=== PATIENT | female | born 1950 | race American Indian/Alaskan Native ===

== ENCOUNTER 2017-02-17 11:57 | Observation (INO) | payer OTHER ==
[2016-11-07 19:01] VITALS: PULSE 73
[2017-02-17 12:24] VITALS: TEMP 97.5
--- NOTE | 2017-02-17 12:58 | ED PDOC ---
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 Pt states that last night she was taking a shower and was sitting on a bath chair when she leaned over to wash her self and fell. She called her grandson which helped her up. This morning her physical therapist came to see her and called her PMD which stated come to the emergency depart. She currently complaining of buttock pain and b/l shoulder pain due to the fall. She denies any headache, or neck pain. She denies loosing consciousness. Pt also states that she was admitted to the hospital ([facility]) last month for pneumonia and she just came back home from the long term. She denies any f/c, cough, visual changes , new focal deficits, shortness of breath, chest pain, abd pain, n/v/d. PMD: Dr Marcus (Jesús Pike) Past Medical History - Provider Review Nursing Documentation Reviewed: Yes - Infectious Disease Hx of Infectious Diseases: None - Reproductive Menopause: Yes - Cardiac Hx Hypertension: Yes Other/Comment: Internal defibrillator - Endocrine/Metabolic Hx Diabetes Mellitus Type 2: Yes - Psychiatric Hx Substance Use: No - Anesthesia Hx Anesthesia: No <Jesús Pike - Last Filed: 02/17/17 17:32> Family/Social History Family/Social History: Hypertension Smoking Status: Unknown If Ever Smoked Hx Alcohol Use: No Hx Substance Use: No <Jesús Pike - Last Filed: 02/17/17 17:32> Allergies/Home Meds <John Richard DO - Last Filed: 02/17/17 17:22> <Jesús Pike - Last Filed: 05/11/17 17:32> Allergies/Adverse Reactions: Allergies sulfamethoxazole [From Bactrim] Allergy (Verified 11/07/16 19:27) RASH trimethoprim [From Bactrim] Allergy (Verified 11/07/16 19:27) RASH Home Medications: Home Meds Medication Instructions Recorded Confirmed Aspirin [Ecotrin] 81 mg PO DAILY 12/09/15 11/07/16 Calcium Acetate [Phoslo] 3 tab PO AC 12/09/15 11/07/16 Cinacalcet [Sensipar] 30 mg PO DAILY 12/09/15 11/07/16 Emtricitabine [Emtriva] 200 mg PO BID 12/09/15 11/07/16 Metoprolol Succinate [Toprol Xl] 100 mg PO QAM 12/09/15 11/07/16 Raltegravir Potassium [Isentress] 400 mg PO Q12H 12/09/15 11/07/16 Rilpivirine HCl [Edurant] 25 mg PO DAILY 12/09/15 11/07/16 Tenofovir [Viread] 300 mg PO MON 12/09/15 11/07/16 Valsartan [Diovan] 80 mg PO DAILY 12/09/15 11/07/16 Arformoterol [Brovana] 1 gage IH BID 10/08/16 11/07/16 Atorvastatin [Lipitor] 10 mg PO DIN 10/08/16 11/07/16 Atovaquone [Mepron] 750 mg PO BID 10/08/16 11/07/16 Bacitracin OINT 1 applic TP BID 10/08/16 10/16/16 Budesonide [Pulmicort Flexhaler] 90 mcg IH BID 10/08/16 11/07/16 Promethazine DM [Phenergan DM Oral 5 ml PO Q6H PRN 10/08/16 11/07/16 Syrup] SITagliptin [Januvia] 25 mg PO DAILY 10/08/16 11/07/16 Zolpidem [Ambien] 5 mg PO HS PRN 10/08/16 11/07/16 metroNIDAZOLE [Flagyl] 500 mg PO TID 10/08/16 10/16/16 Mometasone [Asmanex Twisthaler] 200 puff INH ACD 10/16/16 11/07/16 Heparin [Heparin 1000 units/500 ml 1,000 units SQ DAILY 11/07/16 11/07/16 NS] Review of Systems - Review of Systems Constitutional: absent: Fatigue, Fevers Eyes: absent: Vision Changes ENT: absent: Hearing Changes Respiratory: absent: SOB, Cough Cardiovascular: absent: Chest Pain, Palpitations Gastrointestinal: absent: Abdominal Pain, Diarrhea, Nausea, Vomiting Genitourinary Female: absent: Dysuria, Frequency Musculoskeletal: Arthralgias, Other (buttock pain, b/l shoulder pain ) Skin: absent: Rash Neurological: absent: Headache, Dizziness, Focal Weakness Endocrine: absent: Diaphoresis Psychiatric: absent: Anxiety, Depression <Ramclarissaar,[facility] - Last Filed: 02/17/17 17:32> Physical Exam Temperature: Afebrile Blood Pressure: Normal Pulse: Tachycardic Respiratory Rate: Normal Appearance: Positive for: Well-Appearing, Non-Toxic, Comfortable Pain Distress: None Mental Status: Positive for: Alert and Oriented X 3 - Systems Exam Head: Present: Atraumatic, Normocephalic Pupils: Present: PERRL Extroacular Muscles: Present: EOMI Mouth: Present: Moist Mucous Membranes Neck: Present: Normal Range of Motion Respiratory/Chest: Present: Clear to Auscultation, Good Air Exchange. No: Respiratory Distress, Accessory Muscle Use Cardiovascular: Present: Regular Rate and Rhythm, Normal S1, S2. No: Murmurs Abdomen: Present: Normal Bowel Sounds. No: Tenderness, Distention, Peritoneal Signs Upper Extremity: Present: Normal Inspection, Capillary Refill < 2s, Other ( limited rom; R AV fistula ). No: Cyanosis, Edema, Normal ROM Lower Extremity: Present: Normal Inspection, Other (limited rom ). No: Edema, CALF TENDERNESS, Normal ROM Neurological: Present: GCS=15, CN II-XII Intact, Speech Normal, Other (mild R sided facial deficits) Skin: Present: Warm, Dry, Normal Color. No: Rashes Psychiatric: Present: Alert, Oriented x 3, Normal Insight, Normal Concentration <Raminfar,Jesús - Last Filed: 02/17/17 17:32> Vital Signs Temp Pulse Resp BP Pulse Ox 02/17/17 16:35 104 H 18 128/64 96 02/17/17 15:17 94 H 18 130/62 97 02/17/17 14:00 100 H 18 132/65 100 02/17/17 12:10 97.5 F L 109 H 20 134/63 100 Medical Decision Making <John Richard DO - Last Filed: 02/17/17 17:22> <Jesús Pike - Last Filed: 02/17/17 17:32> ED Course and Treatment: Patient Seen With Resident: In agreement with resident note. Patient was seen and evaluated with resident, came up with plan and treatment together. 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 Differential Diagnosis included but are not limited to: mechanical fall r/o fractures Plan: - CBC, CMP, cardiac iso, BNP - Head CT w/o contrast - B/L Shoulder xray - Hip and pelvis xray - Reassess and disposition Prior Visits: Notes and results from previous visits were reviewed: none Progress Notes: 02/17/17 14:[address] negative for intra cranial mass hemorrhage or any acute infarct. Moderate chronic microvascular white matter ischemic changes. Awaiting Shoulder and Hip imaging. 02/17/17 14:55 EKG: Ordered, reviewed, and independently interpreted the EKG. Rate : 100 BPM Rhythm : Afib with premature ventricular or abbarently conducted complexes Interpretation : LAD, nonspecific intraventricular block, abnormal QRS-T angle consider primary T wave abnormality; abnormal EKG Comparison : No previous EKG for comparison. 02/17/17 16:[address] Carnes: B/L shoulder Xray are negative, and Hip / Pelvis xray are negative. Pt very hard access for IV and blood. Awaiting lab results. (Jesús Pike) - Lab Interpretations Lab Results: 02/17/17 16:40 02/17/17 16:40 Lab Results 02/17/17 16:40: Sodium 141, Potassium 3.4 L, Chloride 97 L, Carbon Dioxide 28, Anion Gap 19, BUN 18, Creatinine 5.9 H, Est GFR ( Amer) 9, Est GFR (Non- Af Amer) 7, Random Glucose 56 L, Calcium 7.8 L, Total Bilirubin 1.2, AST 25, ALT 14, Alkaline Phosphatase 133, Lactate Dehydrogenase 486, Total Creatine Kinase 38, Troponin I 0.05 D, NT-Pro-B Natriuret Pep 57961 H, Total Protein 9.8 H, Albumin 3.8, Globulin 6.0, Albumin/Globulin Ratio 0.6 L 02/17/17 16:40: WBC 3.8 L D, RBC 4.05, Hgb 13.3, Hct 41.6, MCV 102.7, MCH 32.8, MCHC 32.0, RDW 20.4 H, Plt Count 184, MPV 10.5, Gran % 53.6, Lymph % (Auto) 30.2 , Page % (Auto) 12.7 H, Eos % (Auto) 2.4, Baso % (Auto) 1.1, Gran # 2.02, Lymph # 1.1 L, Page # 0.5, Eos # 0.1, Baso # 0.04 - RAD Interpretation Radiology Orders: 02/17/17 12:47 HEAD W/O CONTRAST [CT] Stat HIP MIN 5V W/ PELVIS BREA [RAD] Stat 02/17/17 12:58 SHOULDER LEFT [RAD] Stat SHOULDER RIGHT [RAD] Stat ED OBSERVATION Time of observation admission: 14:00 <John Richard DO - Last Filed: 02/17/17 17:22> Discharge: Yes <Jesús Pike - Last Filed: 02/17/17 17:32> - Observation admission statement Patient is being placed in observation because:: medical management (John Richard DO) - PA / [employer] / Resident Statement SILVIANO has reviewed & agrees with the documentation as recorded. SILVIANO has examined the patient and agrees with the treatment plan. <Jesús Pike - Last Filed: 02/17/17 17:32> Disposition/Present on Arrival <John Richard DO - Last Filed: 02/17/17 17:22> - Present on Arrival Any Indicators Present on Arrival: No History of DVT/PE: No History of Uncontrolled Diabetes: No Urinary Catheter: No History of Decub. Ulcer: No History Surgical Site Infection Following: None - Disposition Have Diagnosis and Disposition been Completed?: Yes Disposition Time: 17:00 Patient Plan: Discharge <Jesús Pike - Last Filed: 02/17/17 17:32> - Disposition Diagnosis: Accident due to mechanical fall without injury Condition: IMPROVED Additional Instructions: Ann Glez, thank you for letting us take care of you today. Your provider was Dr Richard. You were treated for mechanical fall. The emergency medical care you received today was directed at your acute symptoms. If you were prescribed any medication, please fill it and take as directed. It may take several days for your symptoms to resolve. Return to the Emergency Department if your symptoms worsen, do not improve, or if you have any other problems. Please contact your doctor or call one of the physicians/clinics you have been referred to that are listed on the Patient Visit Information form that is included in your discharge packet. Bring any paperwork you were given at discharge with you along with any medications you are taking to your follow up visit. Our treatment cannot replace ongoing medical care by a primary care provider (PCP) outside of the emergency department. Thank you for allowing the [facility] team to be part of your care today. Referrals: Yossi Marcus, DO [Primary Care Provider] - Follow up with primary
--- NOTE | 2017-02-17 14:04 | CT ---
PROCEDURE: CT HEAD WITHOUT CONTRAST. HISTORY: r/o cva COMPARISON: None available. TECHNIQUE: Axial computed tomography images were obtained through the head/brain without intravenous contrast. Radiation dose: Total exam DLP = 677.45 mGy-cm. This CT exam was performed using one or more of the following dose reduction techniques: Automated exposure control, adjustment of the mA and/or kV according to patient size, and/or use of iterative reconstruction technique. FINDINGS: HEMORRHAGE: No intracranial hemorrhage. BRAIN: Left frontal encephalomalacia consistent with prior infarct. High right frontal deep and subcortical white matter low attenuation consistent with microvascular ischemic change. Moderate periventricular microvascular white matter ischemic change. No evidence of acute infarct. VENTRICLES: Unremarkable. No hydrocephalus. CALVARIUM: Unremarkable. PARANASAL SINUSES: Minimal chronic ethmoid sinusitis. MASTOID AIR CELLS: Unremarkable as visualized. No inflammatory changes. OTHER FINDINGS: None. IMPRESSION: No intracranial mass, hemorrhage or evidence of acute infarct. Probable old left frontal infarct. Moderate chronic microvascular white matter ischemic change.
[2017-02-17 14:45] VITALS: RESP 18
[2017-02-17 15:20] VITALS: BMI 27.3
[2017-02-17 16:36] VITALS: O2SAT 96
[2017-02-17 16:45] LABS: ADD MANUAL DIFF? NO
[2017-02-17 16:51] LABS: BASO # 0.04 K/mm3 (0.0-2.0); BASO % 1.1 % (0.0-3.0); EOS # 0.1 (0.0-0.7); EOS % 2.4 % (1.5-5.0); GRAN # 2.02 (1.4-6.5); GRAN % 53.6 % (50.0-68.0); HEMATOCRIT 41.6 % (36.0-48.0); LYMPH # 1.1 (1.2-3.4); LYMPH % 30.2 % (22.0-35.0); MEAN CELL VOLUME 102.7 fL (80.0-105.0); MEAN CORPUSCULAR HEMOGLOBIN 32.8 pg (25.0-35.0); MEAN PLATELET VOLUME 10.5 fl (7.0-11.0); MONO # 0.5 (0.1-0.6); MONO % 12.7 % (1.0-6.0); PLATELET COUNT 184 10^3/uL (120.0-450.0); RED CELL DISTRIBUTION WIDTH 20.4 % (11.5-14.5); WHITE BLOOD COUNT 3.8 10^3/ul (4.5-11.0)
[2017-02-17 17:02] LABS: ALB/GLOB RATIO 0.6 (1.1-1.8); BILIRUBIN,TOTAL 1.2 mg/dL (0.2-1.3); CALCIUM 7.8 mg/dL (8.4-10.5); POTASSIUM 3.4 mmol/L (3.6-5.0); TOTAL PROTEIN 9.8 g/dL (5.8-8.3)
[2017-02-17 17:14] LABS: TROPONIN I 0.05 ng/mL
[2017-02-17 19:05] VITALS: BP 126/68; PULSE 94
--- NOTE | 2017-02-21 07:57 | RAD ---
PROCEDURE: Radiographs of the pelvis and bilateral hips HISTORY: s/p fall COMPARISON: None. FINDINGS: BONES: Pelvis: Unremarkable. Right hip:Unremarkable. Left hip:Unremarkable. JOINTS: Right hip: Unremarkable. Left hip: Unremarkable. Sacroiliac Joints: Unremarkable. Pubic symphysis: Unremarkable. SOFT TISSUES: Vascular calcifications. Pelvic calcification probably within a fibroid OTHER FINDINGS: None. IMPRESSION: Unremarkable radiographs of the hips and pelvis.
--- NOTE | 2017-02-21 07:59 | RAD ---
PROCEDURE: Radiographs of the Left Shoulder HISTORY: fall COMPARISON: No prior. FINDINGS: BONES: Normal. No fracture. JOINTS: Normal. Glenohumeral and acromioclavicular joints preserved. No osteoarthritis. SOFT TISSUES: Normal. OTHER FINDINGS: None. IMPRESSION: Normal radiographs of the left shoulder.
--- NOTE | 2017-02-21 08:05 | RAD ---
PROCEDURE: Radiographs of the Right Shoulder HISTORY: fall COMPARISON: No prior. FINDINGS: BONES: Normal. No fracture. JOINTS: Normal. Glenohumeral and acromioclavicular joints preserved. No osteoarthritis. SOFT TISSUES: Normal. OTHER FINDINGS: None. IMPRESSION: Normal radiographs of the right shoulder.
== END 2017-02-17 17:32 | disposition home or self-care (01) ==
LOC: EDUNIT# → ED 11:57 → EROBSV 14:00
PROVIDERS: ADMIT Emergency Medicine; ATTEND Emergency Medicine
DX: Z03.89 Encounter for observation for other suspected diseases and conditions ruled out (principal); W07.XXXA Fall from chair, initial encounter; Y93.E1 Activity, personal bathing and showering; Y92.002 Bathroom of unspecified non-institutional (private) residence as the place of occurrence of the external cause; I12.0 Hypertensive chronic kidney disease with stage 5 chronic kidney disease or end stage renal disease; N18.6 End stage renal disease; Z99.2 Dependence on renal dialysis; Z21 Asymptomatic human immunodeficiency virus [HIV] infection status
CPT/HCPCS: 70450; 73030; 73523; 80053; 82550; 83615; 83880; 84484; 85025; 99285; G0378

== ENCOUNTER 2017-02-21 01:16 | Inpatient (IN) | payer OTHER ==
[2017-02-21 01:17] VITALS: PULSE 73
[2017-02-21 01:24] VITALS: BMI 27.6
--- NOTE | 2017-02-21 01:38 | ED PDOC ---
Arrival/HPI - General Chief Complaint: Weakness/Neurological Deficit Time Seen by Provider: 02/21/17 01:21 Historian: Patient - History of Present Illness Narrative History of Present Illness (Text): 02/21/17 01:38 Newton Juarez is a 66 year old female, whose past medical history includes HIV, CHF, atrial fibrillation, CAD with stents, anemia, COPD, pacemaker, CVA, and ESRD (hemodialysis on Tuesday/Tuesday/Tuesday), who presents to the Emergency department complaining of generalized weakness s/p fall. Patient states she fell 4 days on to her right side at home and is now experiencing pain on her right side and generalized weakness. Patient denies any nausea, vomiting, diarrhea, urinary symptoms, headache, dizziness, or any other complaints. Time/Duration: Other (4 days) Symptom Onset: Gradual Symptom Course: Unchanged Activities at Onset: Light Context: Home Past Medical History - Provider Review Nursing Documentation Reviewed: Yes - Infectious Disease Hx of Infectious Diseases: None - Tetanus Immunization Tetanus Immunization: Unknown - Cardiac Hx Hypertension: Yes Other/Comment: Internal defibrillator 2002 - Pulmonary Hx Respiratory Disorders: Yes Hx Asthma: Yes Hx Chronic Obstructive Pulmonary Disease (COPD): Yes Hx Pneumonia: Yes - Neurological Hx Neurological Disorder: Yes HX Cerebrovascular Accident: Yes Hx Dizziness: Yes Hx Paralysis: No Hx Transient Ischemic Attacks (TIA): Yes Other/Comment: speech impediment and no feeling to bottom of left foot post cva - HEENT Hx HEENT Disorder: Yes (glasses) - Renal Hx Dialysis: Yes (m/w/f right arm access) Date of Last Dialysis Treatment: 02/18/17 - Endocrine/Metabolic Hx Diabetes Mellitus Type 2: Yes - Hematological/Oncological Hx Blood Disorders: Yes Hx Blood Transfusions: No Hx Blood Transfusion Reaction: No - Integumentary Hx Dermatological Disorder: No - Musculoskeletal/Rheumatological Hx Musculoskeletal Disorders: Yes Hx Falls: Yes (past) Hx Unsteady Gait: Yes Other/Comment: unsteady gait use quad cane - Gastrointestinal Hx Gastrointestinal Disorders: No - Genitourinary/Gynecological Hx Genitourinary Disorders: Yes Hx Reproductive Disorders: No - Psychiatric Hx Psychophysiologic Disorder: No Hx Depression: No Hx Emotional Abuse: No Hx Physical Abuse: No Hx Substance Use: No - Surgical History Hx Cardiac Catheterization: Yes Hx Coronary Stent: Yes (x1 2002) Hx Open Heart Surgery: Yes (defibrillator 2002) Hx Tubal Ligation: Yes Other/Comment: defibrilator/pacemaker --tubal ligation --cardiac cath with stents-- cystoscopy,urethral dilatation, bilateral retrograde pyelogram, fistulagrams, abd wall hematoma exc abd wall mass 06/2014, r av fistula upper arm (ALL CONFIRMED AND FROM PAST TRIAGE) - Anesthesia Hx Anesthesia: No - Suicidal Assessment Feels Threatened In Home Enviroment: No Family/Social History - Physician Review Nursing Documentation Reviewed: Yes Family/Social History: No Known Family HX Smoking Status: Unknown If Ever Smoked Hx Alcohol Use: No Hx Substance Use: No Hx Substance Use Treatment: No Allergies/Home Meds Allergies/Adverse Reactions: Allergies sulfamethoxazole [From Bactrim] Allergy (Verified 02/21/17 01:28) RASH trimethoprim [From Bactrim] Allergy (Verified 02/21/17 01:28) RASH Home Medications: Home Meds Medication Instructions Recorded Confirmed Atovaquone [Mepron] 5 ml PO BID 02/22/17 02/22/17 Dolutegravir Sodium [Tivicay] 50 mg PO BID 02/22/17 02/22/17 Emtricitabine [Emtriva] 200 mg PO MWF 02/22/17 02/22/17 Loperamide [Imodium] 2 mg PO BID PRN 02/22/17 02/22/17 Ondansetron HCl [Zofran] 4 mg PO Q4 PRN 02/22/17 02/22/17 Rilpivirine HCl [Edurant] 25 mg PO BRK 02/22/17 02/22/17 metroNIDAZOLE [Flagyl] 500 mg PO TID 02/22/17 02/22/17 Review of Systems - Physician Review All systems were reviewed & negative as marked: Yes - Review of Systems Constitutional: Other Eyes: Normal ENT: Normal Respiratory: Normal. absent: SOB, Cough Cardiovascular: Normal. absent: Chest Pain Gastrointestinal: Normal. absent: Abdominal Pain, Diarrhea, Nausea, Vomiting Genitourinary Female: Normal Skin: Normal. absent: Rash Neurological: Normal. absent: Headache, Dizziness Endocrine: Normal Hemo/Lymphatic: Normal Psychiatric: Normal Physical Exam Vital Signs Reviewed: Yes Vital Signs Temp Pulse Resp BP Pulse Ox 02/21/17 05:08 98.2 F 91 H 18 120/73 95 02/21/17 02:53 90 18 123/78 98 02/21/17 01:58 108 H 18 102/68 97 Temperature: Afebrile Blood Pressure: Normal Pulse: Regular Respiratory Rate: Normal Appearance: Positive for: Non-Toxic, Comfortable Pain Distress: None Mental Status: Positive for: Alert and Oriented X 3 - Systems Exam Head: Present: Atraumatic, Normocephalic Pupils: Present: PERRL Extroacular Muscles: Present: EOMI Conjunctiva: Present: Normal Mouth: Present: Moist Mucous Membranes Neck: Present: Normal Range of Motion Respiratory/Chest: Present: Clear to Auscultation, Good Air Exchange. No: Respiratory Distress, Accessory Muscle Use Cardiovascular: Present: Regular Rate and Rhythm, Normal S1, S2. No: Murmurs Abdomen: Present: Normal Bowel Sounds. No: Tenderness, Distention, Peritoneal Signs Back: Present: Normal Inspection Upper Extremity: Present: Normal Inspection. No: Cyanosis, Edema Lower Extremity: Present: Normal Inspection. No: Edema Neurological: Present: GCS=15, CN II-XII Intact, Speech Normal Skin: Present: Warm, Dry, Normal Color. No: Rashes Psychiatric: Present: Alert, Oriented x 3, Normal Insight, Normal Concentration Medical Decision Making ED Course and Treatment: 02/21/17 01:38 Impression: 66 year old female complaining of right-sided body pain and generalized weakness s/p fall at home. Plan: -- CT Head w/o contrast -- CT Chest, Abdomen, and Pelvis w/o contrast -- EKG -- Labs, troponin -- Urinalysis -- Reassess and disposition Prior Visits: Notes and results from previous visits were reviewed. Progress Notes: 02/21/17 02:22 Reviewed radiology, CT Head shows: No acute findings. CT Chest shows: 1. Small left pleural effusion. 2. Cardiomegaly CT Abdomen and Pelvis shows: 1. There is thickening of the wall of the transverse colon. 2. There is a small amount of simple ascites. 02/21/17 03:[address] Vidales, covering for Dr. Marcus, who is aware and agrees with plan. Pt will go to [facility] observation for weakness and hypoglycemia. 02/21/17 03:25 Reviewed EKG, a fib at [address] bpm. LAD. Non-specific ST/T wave changes. - Lab Interpretations Microbiology Results: Microbiology Results 02/21/17 09:05 Blood-Venous Blood Culture - Preliminary NO GROWTH AFTER 24 HOURS Lab Results: 02/21/17 02:25 02/21/17 02:25 Lab Results 02/21/17 09:28: Procalcitonin 0.83 H 02/21/17 09:00: Troponin I 0.08 02/21/17 07:14: POC Glucose (mg/dL) 46 L 02/21/17 03:05: POC Glucose (mg/dL) 99 02/21/17 02:25: PT 15.1 H, INR 1.40 H, APTT 28.7 02/21/17 02:25: Sodium 141, Potassium 3.7, Chloride 97, Carbon Dioxide 28, Anion Gap 20, BUN 21, Creatinine 7.7 H, Est GFR ( Amer) 6, Est GFR (Non- Af Amer) 5, Random Glucose 61 L, Calcium 7.1 L, Total Bilirubin 1.0, AST 32, ALT 26, Alkaline Phosphatase 123, Troponin I 0.08 D, Total Protein 8.9 H, Albumin 3.4, Globulin 5.5, Albumin/Globulin Ratio 0.6 L 02/21/17 02:25: WBC 3.2 L, RBC 3.93, Hgb 12.8, Hct 40.8, MCV 103.8, MCH 32.6, MCHC 31.4, RDW 21.5 H, Plt Count 165, MPV 10.9, Gran % 58.6, Lymph % (Auto) 28.5 , [place] % (Auto) 9.1 H, Eos % (Auto) 2.5, Baso % (Auto) 1.3, Gran # 1.87, Lymph # 0.9 L, [place] # 0.3, Eos # 0.1, Baso # 0.04 02/21/17 02:15: POC Glucose (mg/dL) 68 I have reviewed the lab results: Yes - RAD Interpretation Narrative RAD Interpretations (Text): CT Head shows: Brain: Generalized volume loss. There is nonspecific periventricular and deep white matter disease. Left frontal encephalomalacia. No hemorrhage. No edema. Ventricles: No acute findings. No ventriculomegaly. Bones/joints: No acute findings. No acute fracture. Soft tissues: No acute findings. Sinuses: No acute findings. No acute sinusitis. Mastoid air cells: No acute findings. No mastoid effusion. IMPRESSION: No acute findings. CT Chest shows: Lungs: No acute findings. No mass. No consolidation. Pleural space: Small left pleural effusion. Heart: Cardiomegaly. Bones/joints: No acute findings. No acute fracture. No dislocation. Soft tissues: No acute findings. Vasculature: No acute findings. No thoracic aortic aneurysm. Lymph nodes: No acute findings. No enlarged lymph nodes. IMPRESSION: 1. Small left pleural effusion. 2. Cardiomegaly CT Abdomen and Pelvis shows: Lower thorax: No acute findings. ABDOMEN: Liver: No acute findings. Gallbladder and bile ducts: No acute findings. No calcified stones. No ductal dilation. Pancreas: No acute findings. No ductal dilation. Spleen: No acute findings. No splenomegaly. Adrenals: No acute findings. No mass. Kidneys and ureters: No acute findings. No obstructing stones. No hydronephrosis. Stomach and bowel: There is thickening of the wall of the transverse colon. Appendix: No findings to suggest acute appendicitis. PELVIS: Bladder: No acute findings. No stones. Reproductive: No acute findings. ABDOMEN and PELVIS: Intraperitoneal space: There is a small amount of simple ascites. Bones/joints: No acute fracture. No dislocation. Soft tissues: No acute findings. Vasculature: Calcified atherosclerosis. No abdominal aortic aneurysm. Lymph nodes: No acute findings. No enlarged lymph nodes. IMPRESSION: 1. There is thickening of the wall of the transverse colon. 2. There is a small amount of simple ascites. Radiology Orders: 02/21/17 01:39 HEAD W/O CONTRAST [CT] Stat 02/21/17 01:44 CHEST,ABDOMEN, PELVIS W/O CONT [CT] Stat Mechanical Lead: Radiologist - EKG Interpretation Interpreted by ED Physician: Yes Type: 12 lead EKG - Medication Orders Current Medication Orders: Acetaminophen (Tylenol 325mg Tab) 650 mg PO Q4H PRN PRN Reason: Pain, Mild (1-3) Last Admin: 02/22/17 14:07 Dose: 650 mg Atovaquone (Mepron) 750 mg PO BID [facility] Last Admin: 02/22/17 17:48 Dose: 750 mg Diltiazem HCl (Cardizem) 5 mg IVP ONCE PRN PRN Reason: sustained HR >130 Heparin Sodium (Porcine) (Heparin) 5,000 units SC Q8 [facility] PRN Reason: Protocol Last Admin: 02/23/17 06:47 Dose: Home Med (Home Med) 1 unit PO DAILY [facility] Home Med (Home Med) 1 unit PO BID [facility] Home Med (Home Med) 1 unit PO Q4D [facility] Meropenem 500 mg/ Sodium (Chloride) 100 mls @ 100 mls/hr IVPB Q12 [facility] PRN Reason: Protocol Stop: 02/28/17 15:07 Last Admin: 02/22/17 22:05 Dose: 100 mls/hr Insulin Human Regular (Humulin R Low) 0 units SC ACHS [facility] PRN Reason: Protocol Last Admin: 02/22/17 22:05 Dose: Not Given Non-Admin Reason: Blood Sugar Parameter Ondansetron HCl (Zofran Inj) 4 mg IVP Q6H PRN PRN Reason: Nausea/Vomiting Pantoprazole Sodium (Protonix Ec Tab) 40 mg PO ACB [facility] Vitamin B Complex/Vit C/Folic Acid (Nephro-Stone) 1 tab PO DAILY [facility] Last Admin: 02/22/17 08:59 Dose: 1 tab Discontinued Medications Aspirin (Ecotrin) 325 mg PO STAT STA Stop: 02/21/17 10:09 Last Admin: 02/21/17 10:17 Dose: 325 mg Aspirin (Aspirin) Confirm Administered Dose 325 mg .ROUTE .STK-MED ONE Stop: 02/21/17 11:05 Last Admin: 02/21/17 11:06 Dose: 325 mg Bivalirudin (Angiomax) Confirm Administered Dose 250 mg IV .STK-MED ONE Stop: 02/21/17 10:58 Last Admin: 02/21/17 13:43 Dose: Clopidogrel Bisulfate (Plavix) 600 mg PO STAT STA Stop: 02/21/17 10:18 Last Admin: 02/21/17 10:57 Dose: 600 mg Clopidogrel Bisulfate (Plavix) Confirm Administered Dose 600 mg .ROUTE .STK-MED ONE Stop: 02/21/17 11:05 Last Admin: 02/21/17 13:54 Dose: Dextrose (Dextrose 50% Inj) Confirm Administered Dose 50 ml .ROUTE .STK-MED ONE Stop: 02/21/17 02:18 Last Admin: 02/21/17 02:55 Dose: 50 ml Dextrose (Dextrose 50% Inj) 50 ml IVP STAT STA Stop: 02/21/17 07:25 Last Admin: 02/21/17 07:41 Dose: 50 ml Fentanyl (Fentanyl) Confirm Administered Dose 100 mcg .ROUTE .STK-MED ONE Stop: 02/21/17 10:59 Last Admin: 02/21/17 13:53 Dose: Vancomycin HCl (Vancomycin 1gm) 1 gm in 250 mls @ 167 mls/hr IVPB STAT STA PRN Reason: Protocol Stop: 02/21/17 11:00 Last Admin: 02/21/17 09:54 Dose: 167 mls/hr Comments: Medication will not scan Heparin Sodium (Porcine) (Heparin 1000 Units/500 Ml Ns) Confirm Administered Dose 1,500 mls @ ud IV .STK-MED ONE Stop: 02/21/17 10:59 Last Admin: 02/21/17 13:53 Dose: Dopamine HCl/Dextrose (Dopamine 400mg/250ml D5w) Confirm Administered Dose 400 mg in 250 mls @ ud IV .STK-MED ONE Stop: 02/21/17 12:07 Last Admin: 02/21/17 12:09 Dose: 400 mg Comments: 5mcg/kg/min started by Marjorie Sodium Chloride (Sodium Chloride 0.9%) 250 mls @ 999 mls/hr IV .Q16M STA Stop: 02/21/17 23:30 Last Admin: 02/21/17 23:42 Dose: 999 mls/hr Iodixanol (Visipaque 320 Mg/Ml 200 Ml) Confirm Administered Dose 200 ml IV .STK- MED ONE Stop: 02/21/17 10:59 Last Admin: 02/21/17 13:54 Dose: Lidocaine HCl (Lidocaine 2% 20ml Vial) Confirm Administered Dose 20 ml .ROUTE .STK-MED ONE Stop: 02/21/17 10:58 Last Admin: 02/21/17 13:53 Dose: Metoprolol Tartrate (Lopressor) 12.5 mg PO STAT STA Stop: 02/21/17 10:08 Last Admin: 02/21/17 10:17 Dose: 12.5 mg Midazolam HCl (Versed Inj) Confirm Administered Dose 2 mg .ROUTE .STK-MED ONE Stop: 02/21/17 10:58 Last Admin: 02/21/17 11:51 Dose: 2 mg Comments: 1mg iv given by dr. vazquez Morphine Sulfate (Morphine) 2 mg IVP STAT STA Stop: 02/21/17 23:19 Last Admin: 02/21/17 23:41 Dose: 2 mg Nitroglycerin (Nitrostat Sl Tab) 0.4 mg SL Q5M STA Stop: 02/21/17 06:03 Last Admin: 02/21/17 06:23 Dose: 0.4 mg Nitroglycerin (Nitrostat Sl Tab) 0.4 mg SL Q5M [facility] Stop: 02/21/17 10:11 Last Admin: 02/21/17 10:59 Dose: Nitroglycerin (Nitrostat Sl Tab) 0.3 mg SL STAT STA Stop: 02/21/17 21:22 Last Admin: 02/21/17 21:35 Dose: 0.3 mg Ondansetron HCl (Zofran Inj) Confirm Administered Dose 4 mg .ROUTE .STK-MED ONE Stop: 02/21/17 10:47 Last Admin: 02/21/17 10:50 Dose: 4 mg Comments: given by Sabina WEEKS Ondansetron HCl (Zofran Inj) Confirm Administered Dose 4 mg .ROUTE .STK-MED ONE Stop: 02/21/17 12:07 Last Admin: 02/21/17 12:11 Dose: 4 mg Comments: given for nausea Pantoprazole Sodium (Protonix Inj) 40 mg IVP DAILY [facility] Last Admin: 02/22/17 08:59 Dose: 40 mg Phenylephrine HCl (Phenylephrine Inj) Confirm Administered Dose 10 mg .ROUTE .STK-MED ONE Stop: 02/21/17 12:08 Last Admin: 02/21/17 12:10 Dose: 10 mg Comments: 100 mcg iv given by Guillermo Sultana RN - Nanetteibe Statement The provider has reviewed the documentation as recorded by the Razia Altamirano All medical record entries made by the Nanetteibfrancis were at my direction and personally dictated by me. I have reviewed the chart and agree that the record accurately reflects my personal performance of the history, physical exam, medical decision making, and the department course for this patient. I have also personally directed, reviewed, and agree with the discharge instructions and disposition. Disposition/Present on Arrival - Present on Arrival Any Indicators Present on Arrival: No History of DVT/PE: No History of Uncontrolled Diabetes: No Urinary Catheter: No History of Decub. Ulcer: No History Surgical Site Infection Following: None - Disposition Have Diagnosis and Disposition been Completed?: Yes Diagnosis: Generalized weakness Disposition: HOSPITALIZED Disposition Time: 03:20 Condition: FAIR
[2017-02-21] MEDS ORDERED: Dextrose 50% SYRINGE Inj (50 ml) ONE (02:17)
[2017-02-21 02:40] LABS: BASO # 0.04 K/mm3 (0.0-2.0); BASO % 1.3 % (0.0-3.0); EOS # 0.1 (0.0-0.7); EOS % 2.5 % (1.5-5.0); GRAN # 1.87 (1.4-6.5); GRAN % 58.6 % (50.0-68.0); HEMATOCRIT 40.8 % (36.0-48.0); LYMPH # 0.9 (1.2-3.4); LYMPH % 28.5 % (22.0-35.0); MEAN CELL VOLUME 103.8 fL (80.0-105.0); MEAN CORPUSCULAR HEMOGLOBIN 32.6 pg (25.0-35.0); MEAN CORPUSCULAR HGB CONC 31.4 g/dl (31.0-37.0); MEAN PLATELET VOLUME 10.9 fl (7.0-11.0); MONO # 0.3 (0.1-0.6); MONO % 9.1 % (1.0-6.0); PLATELET COUNT 165 10^3/uL (120.0-450.0); RED CELL DISTRIBUTION WIDTH 21.5 % (11.5-14.5); WHITE BLOOD COUNT 3.2 10^3/ul (4.5-11.0)
[2017-02-21 02:47] LABS: INR 1.4 (0.93-1.08); PARTIAL THROMBOPLASTIN TIME 28.7 Seconds (23.7-30.8)
[2017-02-21 02:53] LABS: ALB/GLOB RATIO 0.6 (1.1-1.8); CALCIUM 7.1 mg/dL (8.4-10.5); POTASSIUM 3.7 mmol/L (3.6-5.0); TOTAL PROTEIN 8.9 g/dL (5.8-8.3)
[2017-02-21 03:12] LABS: TROPONIN I 0.08 ng/mL
[2017-02-21 03:21] LABS: ADD MANUAL DIFF? NO
--- NOTE | 2017-02-21 06:20 | CP.PCM.PN ---
Subjective - Date & Time of Evaluation Date of Evaluation: 02/21/17 Time of Evaluation: 06:16 - Subjective Subjective: Patient was seen at bed side because she complained of chest pain.Pain has been present for past 15 minute, is right parasternal, 9/10 , sharp pain, not radiating but she also has pain in the back in the corresponding area,denies nausea, sweating, palpitation, sob, cough, head ache, dizziness. 66 year old woman was admitted with mid sternal chest pain. Has PMH of HTN,atrial fibrillation , CHF,CAD, ischemic CMP, multiple stent placement, COPD, AICD placementi, ESRD ,HIV +, multiple CVA right AV fistula, tubal ligation, cystoscopy with dilatation,ex smoker. Objective - Vital Signs/Intake and Output Vital Signs (last 24 hours): Temp Pulse Resp BP Pulse Ox 98.2 F 91 H 18 120/73 95 02/21/17 05:08 02/21/17 05:08 02/21/17 05:08 02/21/17 05:08 02/21/17 05:08 - Medications Medications: Current Medications Acetaminophen (Tylenol 325mg Tab) 650 mg PO Q4H PRN PRN Reason: Pain, Mild (1-3) - Labs Labs: PT 15.1 Seconds (9.9-11.8) H 02/21/17 02:25 INR 1.40 (0.93-1.08) H 02/21/17 02:25 APTT 28.7 Seconds (23.7-30.8) 02/21/17 02:25 - Constitutional Appears: Well, No Acute Distress - Head Exam Head Exam: ATRAUMATIC, NORMAL INSPECTION, NORMOCEPHALIC - Eye Exam Eye Exam: Normal appearance - ENT Exam ENT Exam: Normal External Ear Exam - Neck Exam Neck Exam: Normal Inspection - Respiratory Exam Respiratory Exam: NORMAL BREATHING PATTERN - Cardiovascular Exam Cardiovascular Exam: absent: JVD - GI/Abdominal Exam GI & Abdominal Exam: absent: Distended - Rectal Exam Rectal Exam: Deferred - Extremities Exam Extremities Exam: Normal Inspection - Back Exam Back Exam: NORMAL INSPECTION - Neurological Exam Neurological Exam: Alert, Oriented x3 - Psychiatric Exam Psychiatric exam: Normal Affect, Normal Mood - Skin Skin Exam: Normal Color Additional comments: AICD + Assessment and Plan - Assessment and Plan (Free Text) Assessment: A/P:Chest pain. Back pain. HTN. CAD. CHF. Ischemic cardiomyopathy. ESRD on HD. Oxygen. EKG . Troponin. Sublingual NTG 0.4 mg q 5 m x 3.------>Pain relieved with 3rd NTG.
[2017-02-21] MEDS ORDERED: Dextrose 50% SYRINGE Inj (50 ml) IVP STA (07:24)
--- NOTE | 2017-02-21 07:46 | CT ---
PROCEDURE: CT HEAD WITHOUT CONTRAST. HISTORY: weakness COMPARISON: Noncontrast head CT performed 02/17/17 TECHNIQUE: Axial computed tomography images were obtained through the head/brain without intravenous contrast. Radiation dose: Total exam DLP = 687.92 mGy-cm. This CT exam was performed using one or more of the following dose reduction techniques: Automated exposure control, adjustment of the mA and/or kV according to patient size, and/or use of iterative reconstruction technique. FINDINGS: HEMORRHAGE: No intracranial hemorrhage. BRAIN: Diffuse atrophy with prominence of the ventricles and sulci noted. No mass effect or edema. Left frontal encephalomalacia. Scattered periventricular and subcortical white matter hypodensities, which are nonspecific, but often seen with chronic microvascular ischemic disease. Please note that MRI with diffusion imaging is more sensitive in the detection of acute ischemic event. VENTRICLES: No hydrocephalus. CALVARIUM: Unremarkable. PARANASAL SINUSES: Unremarkable as visualized. No significant inflammatory changes. MASTOID AIR CELLS: Under aeration of the right mastoid air cells. The left mastoid air cells appear clear. OTHER FINDINGS: None. IMPRESSION: Left frontal encephalomalacia. Nonspecific white matter changes. Generalized volume loss. Preliminary impression was provided by virtual radiologic.
--- NOTE | 2017-02-21 09:16 | HP ---
I saw the patient in bed at [facility]. She is resting comfortably in bed. She is quite weak and lethargic. She is a 66-year-old female who comes in with a history of 4 days ago falling in the shower, experiencing pain on the right side where she hit the shower. She did not hit her head. No loss of consciousness. She has been very weak and lethargic and cannot walk anymore. PAST MEDICAL HISTORY: HIV, CHF, atrial fibrillation, coronary artery disease with stents, anemia, COPD, pacemaker, CVA, and end-stage renal disease with hemodialysis. She has a defibrillator, COPD, asthma, CVA, TIA, speech impediment, left foot numbness and weakness, diabetes, multiple falls, gait disturbance, uses a cane. I think she needs to go for physical therapy at this time. She has coronary stents, defibrillator, tubal ligation, cardiac stents, cystoscopy with ureteral dilatation, bilateral retrograde pyelogram, fistulograms, abdominal wall hematoma, abdominal mass, fistula upper left arm. FAMILY HISTORY: There is hypertension and diabetes in the family. SOCIAL HISTORY: No more smoking, alcohol, or drugs. ALLERGIES: SULFA AND Bactrim. MEDICATIONS: She is on numerous medications. I cannot get the list at this time. We have to work on that. REVIEW OF SYSTEMS: No acute vision changes or hearing changes, no head trauma. She is very weak. No sore throat. No chest pain, no shortness of breath, no coughing, no wheezes, no rales, no palpitations, no abdominal pain, nausea, vomiting, constipation, diarrhea. All extremities are weak, difficult to move them in bed. She has pains on her sides and the ribs from the fall, very nervous, a little anxious. PHYSICAL EXAMINATION: VITAL SIGNS: She has a 98.2 temp, 91 pulse, 18 respiratory rate, 120/78 blood pressure, 95% O2 sat on room air. HEENT: Head is atraumatic, normocephalic. Throat is moist. NECK: Supple. GENERAL: Alert and oriented x 3. EYES: Pupils are equally reactive to light. Extraocular muscles are intact. HEART: Regular rate. Normal S1, S2. LUNGS: Decreased breath sounds, but clear to auscultation. No wheezes, no rhonchi, no rales. ABDOMEN: Soft, nontender, positive bowel sounds. No guarding, no rebound, no CVA tenderness. EXTREMITIES: Have trace edema, but she is weak, difficult to move the legs. NEUROLOGIC: GCS is 15. Cranial nerves II-XII are grossly intact. She is alert and oriented x 3. Thyroid midline. No palpable lymphadenopathy. She had multiple CAT scans and tests. CT of the chest shows small left pleural effusion, cardiomyopathy. CT of the abdomen and pelvis shows thickening of the wall of the transverse colon, small amount of simple ascites. EKG was AFib at 85. LABORATORY DATA: Sodium 141, potassium 3.7, BUN 21. Creatinine is 7.7. GFR is 5. Sugar is 46 and 91. Calcium is 7.1. Total bili is 1. AST is 32. ALT is 26, alk phos 123. Troponin 0.08. I will get cardio involved. INR is 1.4. White count is 3.2, hemoglobin 12.8, hematocrit 40.8. Platelets are 165. I will get cardio, physical therapy, and renal. We will check her labs tomorrow. They put her in as an observation. I cannot foresee her going home if she cannot walk. She is probably going to need to be made into an inpatient. She just got her this morning. I will wait and see what physical therapy recommends, and we will continue with aggressive treatment and care and physical therapy. Yossi Marcus DO cc: [id number] TT: 02/21/2017 09:15:24 jn MTDD
[2017-02-21] MEDS ORDERED: Vancomycin 1gm in NS 250ml 1 GM/250 ML BAG IVPB STA (09:31)
--- NOTE | 2017-02-21 09:50 | CP.PCM.PN ---
Subjective - Date & Time of Evaluation Date of Evaluation: 02/21/17 Time of Evaluation: 08:45 - Subjective Subjective: Patient had hypoglycemia earlier today(accucheck was 46),was asymptomatic, treated with 1 amp of D50 IV.45 mins later,accucheck was 105. Pt seen,chart reviewed. She is known to have HIV,CAD with stents,HTN,COPD,CVA,ESRD,on HD,is hospitalised with diagnosis of weakness and hypoglycemia. Her VS are stable,she is afebrile Denies any new complaints at this time. Pt says she passes very little urine. Objective - Vital Signs/Intake and Output Vital Signs (last 24 hours): Temp Pulse Resp BP Pulse Ox 98.4 F 82 18 120/75 97 02/21/17 08:27 02/21/17 08:27 02/21/17 08:27 02/21/17 08:27 02/21/17 06:00 - Medications Medications: Current Medications Acetaminophen (Tylenol 325mg Tab) 650 mg PO Q4H PRN PRN Reason: Pain, Mild (1-3) - Labs Labs: PT 15.1 Seconds (9.9-11.8) H 02/21/17 02:25 INR 1.40 (0.93-1.08) H 02/21/17 02:25 APTT 28.7 Seconds (23.7-30.8) 02/21/17 02:25 - Constitutional Appears: No Acute Distress - Head Exam Head Exam: ATRAUMATIC, NORMAL INSPECTION, NORMOCEPHALIC - Eye Exam Eye Exam: PERRL - ENT Exam ENT Exam: Mucous Membranes Moist - Neck Exam Neck Exam: Normal Inspection - Respiratory Exam Respiratory Exam: Decreased Breath Sounds - Cardiovascular Exam Cardiovascular Exam: Irregular Rhythm Additional comments: AICD noted in the L upper chest wall. - GI/Abdominal Exam GI & Abdominal Exam: Soft, Normal Bowel Sounds - Extremities Exam Extremities Exam: absent: Calf Tenderness, Pedal Edema Additional comments: AV shunt in R arm - Neurological Exam Neurological Exam: Awake, Oriented x3 - Psychiatric Exam Psychiatric exam: Normal Affect - Skin Skin Exam: Dry, Warm Assessment and Plan - Assessment and Plan (Free Text) Assessment: Recurrent Hypoglycemia Plan: Discussed with . Blood and Urine cultures ordered stat. Consult requested with Dr Aaron.
--- NOTE | 2017-02-21 10:06 | CT ---
CT chest, abdomen, and pelvis without IV contrast Indication: Fall Technique: Contiguous axial images of the chest, abdomen, and pelvis without oral or IV contrast. Coronal and Sagittal reformats generated and reviewed. This CT exam was performed using 1 or more of the falling dose reduction techniques: Automated exposure control, adjustment of the MAA and/or kV according to patient size, and/or use of iterative reconstruction technique. Radiation dose: Total exam DLP = 1252.10 MGy-cm. Comparison: CT of the abdomen and pelvis without contrast performed 04/23/16, CT of the chest without contrast performed 09/30/16 Findings: Visualized portions of the inferior thyroid gland demonstrates tiny left lower pole hypodense nodule. Cardiomegaly. Dense atherosclerotic calcifications of the aorta. Coronary artery calcifications. Single lead left-sided AICD. Left-sided pleural effusion with probable loculated component within the upper lobe. Mild right middle lobe atelectasis. No pneumothorax. No suspicious pulmonary nodules measuring greater than 5 mm. The noncontrast liver, spleen, kidneys, pancreas, adrenal glands, and gallbladder appear grossly unremarkable. The stomach is nondistended. Lack of oral contrast limits evaluation for bowel pathology. The bowel loops appear within normal limits of caliber without evidence of intestinal obstruction. Colonic wall thickening of the transverse colon; correlate clinically for possibility of colitis (i.e. infectious, inflammatory, ischemic). The appendix appears within normal limits of caliber. There is no definite free air. Small pelvic free fluid. Atherosclerotic calcifications of the abdominal aorta an branches. Uterus is present. Urinary bladder wall thickening may be exaggerated by under distension. Osseous demineralization. Degenerative changes. Impression: No acute traumatic pathology identified. Left-sided pleural effusion with probable loculated component within upper lobe. Mild right middle lobe atelectasis. Cardiomegaly. Left-sided AICD. Dense atherosclerotic calcifications of the thoracic and abdominal aorta as well as branches. Coronary artery calcifications. Additional findings as above including colonic wall thickening of the transverse colon; correlate clinically for possibility of colitis. Small pelvic free fluid. Preliminary impression was provided by virtual radiologic.
[2017-02-21] MEDS ORDERED: Aspirin 325 mg EC Tablets PO STA (10:08)
--- NOTE | 2017-02-21 10:15 | CP.PCM.PN ---
Subjective - Date & Time of Evaluation Date of Evaluation: 02/21/17 Time of Evaluation: 10:00 - Subjective Subjective: Patient seen stat for her c/o chest pain which started after she had her breakfast.She describes the pain as a tight pain located on the R side of the chest. It radiates to the back and is not associated with any other symptoms.Pt says the pain is a nine on a scale of 1 to 10. Her VS are stable. PMH:HIV,CAD with stents,CHF,AFib,HTN,COPD,AICD,ESRD,on HD. Objective - Vital Signs/Intake and Output Vital Signs (last 24 hours): Temp Pulse Resp BP Pulse Ox 98.4 F 82 18 120/75 97 02/21/17 08:27 02/21/17 08:27 02/21/17 08:27 02/21/17 08:27 02/21/17 06:00 - Medications Medications: Current Medications Acetaminophen (Tylenol 325mg Tab) 650 mg PO Q4H PRN PRN Reason: Pain, Mild (1-3) Vancomycin HCl (Vancomycin 1gm) 1 gm in 250 mls @ 167 mls/hr IVPB STAT STA PRN Reason: Protocol Stop: 02/21/17 11:00 Last Admin: 02/21/17 09:54 Dose: 167 mls/hr Nitroglycerin (Nitrostat Sl Tab) 0.4 mg SL Q5M AIDAN Stop: 02/21/17 10:11 - Labs Labs: PT 15.1 Seconds (9.9-11.8) H 02/21/17 02:25 INR 1.40 (0.93-1.08) H 02/21/17 02:25 APTT 28.7 Seconds (23.7-30.8) 02/21/17 02:25 - Constitutional Appears: No Acute Distress - Head Exam Head Exam: ATRAUMATIC, NORMAL INSPECTION, NORMOCEPHALIC - Eye Exam Eye Exam: PERRL - ENT Exam ENT Exam: Mucous Membranes Moist - Neck Exam Neck Exam: Full ROM - Respiratory Exam Respiratory Exam: Clear to Ausculation Bilateral, NORMAL BREATHING PATTERN - Cardiovascular Exam Cardiovascular Exam: Irregular Rhythm Additional comments: AICD noted in the L upper chest wall - GI/Abdominal Exam GI & Abdominal Exam: Soft, Normal Bowel Sounds - Neurological Exam Neurological Exam: Awake, Oriented x3 - Psychiatric Exam Psychiatric exam: Normal Affect - Skin Skin Exam: Dry, Warm Assessment and Plan - Assessment and Plan (Free Text) Assessment: Chest pain ,Unstable angina. Plan: Metoprolol and ASA ordered stat. NTG was ordered stat by Dr Marcus. Patient needs to be placed on a monitered bed. Dr Coyle called,he requested that pt be given 600 mg of Plavix and 325 mg of ASA stat then bring the patient to the Director Of Acquisition Marketing. The meds were given immediately.However pt vomited everything she was given po. She was also NTG SL which eased her pain a little.EKG was ordered stat,but not done as yet. Pt was transferred to the crown and bridge dental lab technician with O2 and cardiac moniter in place ,and accompanied by her RN and myself.Endorsed to RN in the agriculture laborer. Dr Coyle was told of above events.
[2017-02-21] MEDS ORDERED: Lidocaine 2% Inj (20ml) ONE (10:57)
[2017-02-21] MEDS ORDERED: Iodixanol 320 MG/ML 200 ML BOTTLE IV ONE (10:58)
[2017-02-21] MEDS: Midazolam 2 MG/2 ML VIAL ONE ×2 (11:51→13:53)
[2017-02-21] MEDS ORDERED: DOPamine 400mg/250ml D5W 400 MG/250 ML BAG IV ONE (12:06)
[2017-02-21] MEDS: Phenylephrine 10 mg/ml Inj ONE ×2 (12:10→13:55)
--- NOTE | 2017-02-21 13:51 | CON ---
DATE: 02/21/2017 HISTORY OF PRESENT ILLNESS: The patient is a 66-year-old woman who presents with nausea, vomiting as well as recurrent chest pain. She received nitroglycerin which showed some mild relief. The patient has had PTCA and stent of the RCA in the past. She also suffers from end-stage renal dis ease, treated with dialysis. She has hypertension as well as history of HIV. The patient underwent cardiac catheterization in 09/2016, which reveals a 50% stenosis in the RCA. Her ejection fraction i s 30%. There is an AV groove branch of the circumflex artery which revealed an 80% stenoses but was a small vessel. The patient is treated medically. The patient comes back for recurrent angina. Currently, the patient is in distress, mostly from her nausea. SOCIAL HISTORY: Denies smoking. REVIEW OF SYSTEMS: A 14-point review of systems was reviewed. No other symptomatology is noted othe r than what was stated above. PHYSICAL EXAMINATION: VITAL SIGNS: The blood pressure was 90 systolic. The heart rate was 100, atrial fibrillation. NECK: Negative JVD. LUNGS: Decreased breath sounds. HEART: Revealed S1, S2. EXTREMITIES: Without edema. EKG shows poor R-wave progression with nonspecific ST-T changes. LABORATORIES: The hemoglobin is 12. The white count is 3.2. The first troponins are 0.08 and 0.08, which are not that much different from her baseline. Her BUN and creatinine is 21 and 7.7. IMPRESSION: 1. Recurrent angina. 2. Severe peripheral vascular disease. 3. Coronary artery disease. 4. End-stage renal disease. 5. Dilated cardiomyopathy. 6. Human immunodeficiency virus history. Given these findings, the patient was brought to the crime lab technician for attempted cardiac catheterization. The patient had no discernible pulse on the left upper extremity, the right upper extremity was used for dialysis with her shunt. The left femoral artery could not be entered after multiple attempts. The right femoral artery could not be entered due to the diminished pulses. No cardiac catheterization was performed; however, central venous pressure was 45 mmHg. IMPRESSION: 1. Recurrent chest pain, which is now better after Zofran and nitroglycerin. 2. Hypotension, treated with low dose dopamine in the crime lab technician which resulted in blood pressure 120 systolic. 3. Recurrent chest pain. 4. No evidence for an acute myocardial infarction. 5. End-stage renal disease. 6. Severe peripheral vascular disease. 7. Dilated cardiomyopathy. PLAN: Given these findings: 1. We will transfer the patient to the ICU for continued hemodynamic monitoring and therapy. 2. We will obtain a stat echocardiogram to evaluate her LV function as well as rule out a pericardia l effusion. 3. We will treat her chest pain medically. We will continue with Zofran to help her nausea. Lamont Coyle MD cc: [phone] TT: 02/21/2017 13:50:33 Confirmation # [id number] Dictation # [id number]
[2017-02-21 13:54] LABS: ARTERIAL BLOOD GAS HCO3 25.4 mmol/L (21-28); ARTERIAL BLOOD GAS O2 CAPACITY 16.8 mL/dl (16-24); ARTERIAL BLOOD GAS O2 CONTENT 15.1 ML/dl (15-23); ARTERIAL BLOOD HGB O2 SAT 86.8 % (95.0-98.0); CARBOXYHEMOGLOBIN 2.5 % (0.5-1.5); HHB 9.7 % (0-5); METHEMOGLOBIN 0.9 % (0.0-3.0)
[2017-02-21] MEDS: Meropenem 500 MG in Sodium Chloride 0.9% 100 ML IVPB SCH ×2 (15:05→21:35)
--- NOTE | 2017-02-21 15:06 | CP.PCM.CON ---
History of Present Illness - History of Present Illness History of Present Illness: Initial Nephrology Consultation: Assessment/Plan: End stage renal disease on hemodialysis (MWF) via AVF: Will plan for bedside HD today in CCU as ordered with 3 K bath for 3.25 hours and ultrafiltration goal of 1-2 Kgs. Nephrovite 1 tab/day. Anemia: PRBC as needed. last Hb 12.8 hence ADI not indicated Hyperphosphatemia: continue with home meds Hypertension control with meds as ordered. Patient not on RAAS felicity as BP on low side. dopamine being tapered off CHF and CAD management as per primary team/cardiology Glycemic control, Dialysis consistent diet Further work up/management as per primary team Dose meds/antibiotics (if needed) for ESRD status. Avoid fleets enema/magnesium based laxatives. Thanks for allowing me to participate in care of your patient. Will follow patient with you. Please call if any Qs Dr Adan Duong Office: [phone] Chief Complaint; chest pain HPI: Pt is a y/o with hx of ESRD on hemodialysis (MWF) via Rt AVF with Dr Juarez, last dialysis tuesday, chronic anemia, hyperphosphatemia, secondary hyperparathyroidism, Diabetes Mellitus, hypertension, CAD s/p stent presented with complaints of chest pain. She went for cardiac cath today but unsuccessful. she was transferred to CCU for dopamine drip which is being tapered off. Bedside echo about to be done. improved chest pain denies palpitation, shortness of breath, leg swelling on HD x 13 years, anuric. ROS: Constitutional Symptoms: Denies fever. No chills. No Recent Weight Changes Eyes: denies change in vision, denies watery eyes, denies double vision Ears/Nose/Mouth/Throat: Denies Abnormal Taste. No Bad breath or Bad Taste. Cardiovascular: c/o chest pain but better. There is no shortness of breath. No palpitations. Pulmonary: No shortness of breath or cough. Gastrointestinal: denies abdominal pain No nausea. No vomiting. Denies change in bowel habits. Denies Bleeding Genitourinary: anuric Neurological: Denies headaches. No dizziness. Denies loss of balance. Denies weakness, denies tingling/numbness Dermatological: No Rash or Bruising or ulcers. Psychiatric: Denies Anxiety. No depression. Denies hallucinations. Rheumatological: No joint pain. Denies Joint swelling Endocrine: Denies over tiredness. Denies Fatigue and Heat/Cold Intolerance. Physical Examination: General Appearance: Comfortable, in no acute respiratory distress, co-operative . Vitals reviewed and noted as below Head; Atraumatic, normocephalic ENT: no ulcers no thrush. Tongue is midline. Oropharynx: no rash or ulcers. EYES: Pupils are equal, round and reactive to light accommodation. Eye muscles and extraocular movement intact. Sclera is anicteric. Neck; supple no lymphadenopathy, no thyromegaly or bruit Lungs: Normal respiratory rate/effort. Breath sounds bilateral equal and clear Heart: Increased rate. s1s2 normal. No rub or gallop. SM+ at LSB Extremities: no edema. No varicose veins Neurological: Patient is alert, awake and oriented to person, place and time. No focal deficit. Strength bilateral appropriate and equal Skin: dry. Normal turgor. No rash. Palpitation: Normal elasticity for age. extremities somewhat cold to touch Abdomen: Abdomen is soft. Bowel sounds +. There is no abdominal tenderness, no guarding/rigidity or organomegaly Psych: normal insight and normal affect/mood MSK: no joint tenderness or swelling. Digits and nails normal, no deformity : kidney or bladder not palpable Access: RUE AVF with thrill and bruit Labs/imaging reviewed. Past medical history, past surgical history, family history, social history, allergy reviewed and noted as below Past Patient History - Infectious Disease Hx of Infectious Diseases: None - Tetanus Immunizations Tetanus Immunization: Unknown - Past Social History Smoking Status: Former Smoker - CARDIAC Hx Hypertension: Yes Other/Comment: Internal defibrillator 2003 - PULMONARY Hx Respiratory Disorders: Yes Hx Asthma: Yes Hx Chronic Obstructive Pulmonary Disease (COPD): Yes Hx Pneumonia: Yes - NEUROLOGICAL Hx Neurological Disorder: Yes HX Cerebrovascular Accident: Yes Hx Dizziness: Yes Hx Transient Ischemic Attacks (TIA): Yes Other/Comment: speech impediment and no feeling to bottom of left foot post cva - HEENT Hx HEENT Problems: Yes (glasses) - RENAL Hx Dialysis: Yes (m/w/f right arm access) - ENDOCRINE/METABOLIC Hx Diabetes Mellitus Type 2: Yes - HEMATOLOGICAL/ONCOLOGICAL Hx Blood Disorders: Yes - INTEGUMENTARY Hx Dermatological Problems: No - MUSCULOSKELETAL/RHEUMATOLOGICAL Hx Falls: Yes (past) - GASTROINTESTINAL Hx Gastrointestinal Disorders: No - GENITOURINARY/GYNECOLOGICAL Hx Genitourinary Disorders: Yes - PSYCHIATRIC Hx Psychophysiologic Disorder: No Hx Depression: No Hx Emotional Abuse: No Hx Physical Abuse: No - SURGICAL HISTORY Hx Cardiac Catheterization: Yes Hx Coronary Stent: Yes (x1 2002) Hx Open Heart Surgery: Yes (defibrillator 2002) Other/Comment: defibrilator/pacemaker --tubal ligation --cardiac cath with stents-- cystoscopy,urethral dilatation, bilateral retrograde pyelogram, fistulagrams, abd wall hematoma exc abd wall mass 06/2014, r av fistula upper arm (ALL CONFIRMED AND FROM PAST TRIAGE) - ANESTHESIA Hx Anesthesia: No Meds Allergies/Adverse Reactions: Allergies Allergy/AdvReac Type Severity Reaction Status Date / Time sulfamethoxazole Allergy RASH Verified 02/21/17 01:28 [From Bactrim] trimethoprim [From Bactrim] Allergy RASH Verified 02/21/17 01:28 - Medications Medications: Current Medications Acetaminophen (Tylenol 325mg Tab) 650 mg PO Q4H PRN PRN Reason: Pain, Mild (1-3) Vitamin B Complex/Vit C/Folic Acid (Nephro-Stone) 1 tab PO DAILY AIDAN Results - Vital Signs Recent Vital Signs: Last Vital Signs Temp 97.5 F L 02/21/17 13:06 Pulse 112 H 02/21/17 14:13 Resp 17 02/21/17 14:13 BP 115/82 02/21/17 14:13 Pulse Ox 98 02/21/17 14:12 - Labs Result Diagrams: 02/21/17 02:25 02/21/17 02:25 Labs: Laboratory Results - last 24 hr 02/21/17 13:45 pCO2 41 pO2 53.0 L HCO3 25.4 ABG pH 7.40 ABG Total CO2 26.7 ABG O2 Saturation 89.9 L ABG O2 Content 15.1 ABG Base Excess 0.5 ABG Hemoglobin 12.4 ABG Carboxyhemoglobin 2.5 H POC ABG HHb (Measured) 9.7 H ABG Methemoglobin 0.9 ABG O2 Capacity 16.8 Hgb O2 Saturation 86.8 L FiO2 21.0
--- NOTE | 2017-02-21 15:20 | CP.PCM.CON ---
History of Present Illness - History of Present Illness History of Present Illness: 66 year old female with PMH of HIV, non-compliant with meds (follows Dr. Reeder at [facility] but does not recall latest CD4 count or virus load), ESRD on HD with right A-V fistula, atrial fibrillation, asthma, cerebrovascular accident, peripheral vascular disease, coronary artery disease S/P cardiac catheterization, S/P AICD placement for cardiomyopathy with low EF was brought in by family because of worsening weakness over the past 4 days. She has been showering 4 days ago and sustained a fall without traumatizing her head, no loss of consciousness, no dizziness, no chest pain, no SOB, no nausea or vomiting. She has anorexia currently. She feels weak that she is having difficulty ambulating. She denies fever or chills, no abdominal pain, no cough or rhinorrhea, no dysuria, no diarrhea. In the ED, she was noted to have hypoglycemic episodes. She went for cardiac cath today but could not get catheterized. CT chest/abdomen and pelvis was done which showed possible transverse colitis. Infectious Diseases consult is requested to further evaluate and manage. Review of Systems - Review of Systems All systems: reviewed and no additional remarkable complaints except (as per HPI ) Past Patient History - Infectious Disease Hx of Infectious Diseases: None - Tetanus Immunizations Tetanus Immunization: Unknown - Past Social History Smoking Status: Former Smoker - CARDIAC Hx Hypertension: Yes Other/Comment: Internal defibrillator 2002 - PULMONARY Hx Respiratory Disorders: Yes Hx Asthma: Yes Hx Chronic Obstructive Pulmonary Disease (COPD): Yes Hx Pneumonia: Yes - NEUROLOGICAL Hx Neurological Disorder: Yes HX Cerebrovascular Accident: Yes Hx Dizziness: Yes Hx Transient Ischemic Attacks (TIA): Yes Other/Comment: speech impediment and no feeling to bottom of left foot post cva - HEENT Hx HEENT Problems: Yes (glasses) - RENAL Hx Dialysis: Yes (m/w/f right arm access) - ENDOCRINE/METABOLIC Hx Diabetes Mellitus Type 2: Yes - HEMATOLOGICAL/ONCOLOGICAL Hx Blood Disorders: Yes - INTEGUMENTARY Hx Dermatological Problems: No - MUSCULOSKELETAL/RHEUMATOLOGICAL Hx Falls: Yes (past) - GASTROINTESTINAL Hx Gastrointestinal Disorders: No - GENITOURINARY/GYNECOLOGICAL Hx Genitourinary Disorders: Yes - PSYCHIATRIC Hx Psychophysiologic Disorder: No Hx Depression: No Hx Emotional Abuse: No Hx Physical Abuse: No - SURGICAL HISTORY Hx Cardiac Catheterization: Yes Hx Coronary Stent: Yes (x1 2002) Hx Open Heart Surgery: Yes (defibrillator 2002) Other/Comment: defibrilator/pacemaker --tubal ligation --cardiac cath with stents-- cystoscopy,urethral dilatation, bilateral retrograde pyelogram, fistulagrams, abd wall hematoma exc abd wall mass 06/2014, r av fistula upper arm (ALL CONFIRMED AND FROM PAST TRIAGE) - ANESTHESIA Hx Anesthesia: No Meds Allergies/Adverse Reactions: Allergies Allergy/AdvReac Type Severity Reaction Status Date / Time sulfamethoxazole Allergy RASH Verified 02/21/17 01:28 [From Bactrim] trimethoprim [From Bactrim] Allergy RASH Verified 02/21/17 01:28 - Medications Medications: Current Medications Acetaminophen (Tylenol 325mg Tab) 650 mg PO Q4H PRN PRN Reason: Pain, Mild (1-3) Physical Exam - Constitutional Appears: Other (ill-appearing, feels weak) - Head Exam Head Exam: NORMAL INSPECTION - ENT Exam ENT Exam: Mucous Membranes Moist - Neck Exam Neck exam: Negative for: Lymphadenopathy, Meningismus - Respiratory Exam Respiratory Exam: Decreased Breath Sounds - Cardiovascular Exam Cardiovascular Exam: +S1, +S2 - GI/Abdominal Exam GI & Abdominal Exam: Soft. absent: Tenderness Results - Vital Signs Recent Vital Signs: Last Vital Signs Temp 98.4 F 02/21/17 08:27 Pulse 82 02/21/17 08:27 Resp 18 02/21/17 08:27 BP 120/75 02/21/17 08:27 Pulse Ox 97 02/21/17 06:00 - Labs Result Diagrams: 02/21/17 02:25 02/21/17 02:25 Labs: Laboratory Results - last 24 hr 02/21/17 07:14 POC Glucose (mg/dL) 46 L Assessment & Plan - Assessment and Plan (Free Text) Plan: Assessment Consider transverse colon colitis, R/O infectious cause, R/O ischemic colitis HIV, non-compliant with antiretroviral therapy (follows Dr. Reeder at [facility] but does not recall latest CD4 count or virus load) Cdiff associated diarrhea, slowly improving history of pancreatitis ESRD on hemodialysis Atrial fibrillation Asthma peripheral vascular disease coronary artery disease S/P cardiac catheterization, S/P AICD placement for cardiomyopathy with low EF cerebrovascular accident Plan we have started a dose of IV Vancomycin and Merrem pending blood cx, urine cx; patient currently does not have diarhea, but will check stool for C.diff. if the patient develops loose bowel movement continue ART (patient was previously on Emtricitabine, Tenofovir, Raltegravir, Edurant but according to the patient, she had been switched to other meds by her HIV physician - asked family to bring her meds to the hospital) was on Mepron and will continue it (patient was taking it previously) will follow clinically
--- NOTE | 2017-02-21 16:32 | CP.PCM.CON ---
<Samra Higgins - Last Filed: 02/21/17 18:41> History of Present Illness - History of Present Illness History of Present Illness: Pt is a 66F with extensive PMH including CAD with coronary stents, AICD, HIV, CHF, COPD, CVA, afib, diabetes on HD, and anemia who was admitted for a fall 4 days ago. Patient fell in her shower onto her right sided but denies any head trauma. Patient states that she had persistent right sided arm and chest pain that persisted for 4 days so she came to the hospital. Patient's EKG showed afib , intraventricular block, possible lateral infarct, possible left atrial deviation. Troponin was 0.08. Patient was taken for a cardiac cath today, but they were unable to traverse either femoral artery. Afterwards patient experienced hypotension with a CVP of 45 after the procedure that required dopamine drip, so she was transferred to the ICU. In the ICU her BP was increased to an adequate level without Dopamine. During exam patient was going through dialysis with stable vitals. Patient stated that her Chest pain resolved with the pill they gave before her procedure and now her only complaint is lower back pain. Denies fevers, SOB, pain radiating to her shoulder or jaw, light headedness, leg edema, nausea, vomiting, or calf pain. Patient refused to answer any more questions until her dialysis was done. Review of Systems - Review of Systems Systems not reviewed;Unavailable: Uncooperative All systems: reviewed and no additional remarkable complaints except (as per HPI ) - Constitutional Constitutional: As Per HPI - EENT Eyes: absent: Change in Vision - Cardiovascular Cardiovascular: As Per HPI - Respiratory Respiratory: As Per HPI. absent: Cough, Dyspnea, Hemoptysis - Gastrointestinal Gastrointestinal: As Per HPI - Genitourinary Genitourinary: absent: Dysuria, Hematuria - Musculoskeletal Musculoskeletal: Back Pain. absent: Arthralgias Past Patient History - Infectious Disease Hx of Infectious Diseases: None - Tetanus Immunizations Tetanus Immunization: Unknown - Past Social History Smoking Status: Former Smoker - CARDIAC Hx Hypertension: Yes Other/Comment: Internal defibrillator 2002 - PULMONARY Hx Respiratory Disorders: Yes Hx Asthma: Yes Hx Chronic Obstructive Pulmonary Disease (COPD): Yes Hx Pneumonia: Yes - NEUROLOGICAL Hx Neurological Disorder: Yes HX Cerebrovascular Accident: Yes Hx Dizziness: Yes Hx Transient Ischemic Attacks (TIA): Yes Other/Comment: speech impediment and no feeling to bottom of left foot post cva - HEENT Hx HEENT Problems: Yes (glasses) - RENAL Hx Dialysis: Yes (m/w/f right arm access) - ENDOCRINE/METABOLIC Hx Diabetes Mellitus Type 2: Yes - HEMATOLOGICAL/ONCOLOGICAL Hx Blood Disorders: Yes - INTEGUMENTARY Hx Dermatological Problems: No - MUSCULOSKELETAL/RHEUMATOLOGICAL Hx Falls: Yes (past) - GASTROINTESTINAL Hx Gastrointestinal Disorders: No - GENITOURINARY/GYNECOLOGICAL Hx Genitourinary Disorders: Yes - PSYCHIATRIC Hx Psychophysiologic Disorder: No Hx Depression: No Hx Emotional Abuse: No Hx Physical Abuse: No - SURGICAL HISTORY Hx Cardiac Catheterization: Yes Hx Coronary Stent: Yes (x1 2002) Hx Open Heart Surgery: Yes (defibrillator 2002) Other/Comment: defibrilator/pacemaker --tubal ligation --cardiac cath with stents-- cystoscopy,urethral dilatation, bilateral retrograde pyelogram, fistulagrams, abd wall hematoma exc abd wall mass 06/2014, r av fistula upper arm (ALL CONFIRMED AND FROM PAST TRIAGE) - ANESTHESIA Hx Anesthesia: No Meds Allergies/Adverse Reactions: Allergies Allergy/AdvReac Type Severity Reaction Status Date / Time sulfamethoxazole Allergy RASH Verified 02/21/17 01:28 [From Bactrim] trimethoprim [From Bactrim] Allergy RASH Verified 02/21/17 01:28 - Medications Medications: Current Medications Acetaminophen (Tylenol 325mg Tab) 650 mg PO Q4H PRN PRN Reason: Pain, Mild (1-3) Atovaquone (Mepron) 750 mg PO BID AIDAN Meropenem 500 mg/ Sodium (Chloride) 100 mls @ 100 mls/hr IVPB Q12 AIDAN PRN Reason: Protocol Stop: 02/28/17 15:07 Vitamin B Complex/Vit C/Folic Acid (Nephro-Stone) 1 tab PO DAILY [facility] Physical Exam - Constitutional Appears: Non-toxic, No Acute Distress - Head Exam Head Exam: ATRAUMATIC, NORMOCEPHALIC - Respiratory Exam Respiratory Exam: Decreased Breath Sounds, Clear to Auscultation Bilateral, NORMAL BREATHING PATTERN. absent: Accessory Muscle Use, Rales, Rhonchi, Wheezes - Cardiovascular Exam Cardiovascular Exam: Tachycardia, Irregular Rhythm, +S1, +S2, Systolic Murmur ( systolic murmur) - GI/Abdominal Exam GI & Abdominal Exam: Distended, Normal Bowel Sounds, Soft, Tenderness (mild tenderness to palpation in the RUQ and RLQ). absent: Firm, Guarding - Extremities Exam Extremities exam: Negative for: calf tenderness, pedal edema, pedal pulses present (pedal pulses only appreciated with doppler, L>R) Additional comments: BL groin catheterization site covered in bandage c/d/i, no hematoma or signs of active bleeding - Back Exam Additional comments: No observable 2/2 dialysis ongoing - Neurological Exam Neurological exam: Alert, Oriented x3 - Psychiatric Exam Psychiatric exam: Anxious, Normal Affect - Skin Skin Exam: Dry, Intact, Warm Results - Vital Signs Recent Vital Signs: Last Vital Signs Temp 97.9 F 02/21/17 15:55 Pulse 101 H 02/21/17 15:55 Resp 18 02/21/17 15:55 BP 99/69 L 02/21/17 15:55 Pulse Ox 98 02/21/17 14:12 - Labs Result Diagrams: 02/21/17 15:10 02/21/17 15:10 Labs: Laboratory Results - last 24 hr 02/21/17 02/21/17 13:45 15:10 pCO2 41 pO2 53.0 L HCO3 25.4 ABG pH 7.40 ABG Total CO2 26.7 ABG O2 Saturation 89.9 L ABG O2 Content 15.1 ABG Base Excess 0.5 ABG Hemoglobin 12.4 ABG Carboxyhemoglobin 2.5 H POC ABG HHb (Measured) 9.7 H ABG Methemoglobin 0.9 ABG O2 Capacity 16.8 Hgb O2 Saturation 86.8 L FiO2 21.0 Troponin I 0.07 Assessment & Plan - Assessment and Plan (Free Text) Assessment: 66F with PMH including CAD with coronary stents, CHF, afib with RVR with a pacemaker, HIV, COPD, CVA, DM on HD, who presented with right sided shoulder and chest pain 4 days S/P fall on right side. Admitted to the ICU for hypotension after cardiac catheterization attempt. Neuro: Reports chronic toe numbness BL, but no other symptoms CNII-XII intact, gross neuromuscular function intact Continue to monitor Cardio: Previous Cath 09/2016: 50% STENOSIS RCA, EF 30% Chest pain resolved, dyspnea, no palpitations Irregular rate and rhythm, systolic murmur afib with RVR, hypotension improved EKG: afib, intraventricular block, lateral infarct of unknown age Trop: 0.08->0.08->0.07 Hold BP meds, adminster cardizem IVP for HR>140 sustained, hold for HR<100 sustained Continue to monitor vitals Follow up ECHO report Pulm: Denies SOB or cough Decreased breath sounds but no rales, wronchi, or wheezes SaO2 adequate on NC CT chest: L pleural effusion with possible loculations continue to monitor CXR in the AM GI: No complaints Abdominal exam benign carb controlled renal diet Continue to monitor Nephro: ESRD Bun 21, Cr: 7.7. Cr on 02/17: 5.9 Hemodialysis MWF Supplement electrolytes as directed by dry chain operator renal diet, nephrovite Endo: Glucse 47 this AM ACHS finger sticks Insulin humalin per low protocol ID: afebrile, Tachycardia History of HIV, loculated pleural effusion on Chest CT Blood cultures pending Continue antimicrobials per ID PPX: protonix, SCD's Patient seen and discussed with Dr. Indira Higgins, PGY1 <Indira PATEL,Sherondione - Last Filed: 02/21/17 19:09> Meds - Medications Medications: Current Medications Acetaminophen (Tylenol 325mg Tab) 650 mg PO Q4H PRN PRN Reason: Pain, Mild (1-3) Atovaquone (Mepron) 750 mg PO BID [facility] Last Admin: 02/21/17 18:10 Dose: 750 mg Diltiazem HCl (Cardizem) 5 mg IVP ONCE PRN PRN Reason: sustained HR >130 Meropenem 500 mg/ Sodium (Chloride) 100 mls @ 100 mls/hr IVPB Q12 AIDAN PRN Reason: Protocol Stop: 02/28/17 15:07 Last Admin: 02/21/17 15:05 Dose: Not Given Insulin Human Regular (Humulin R Low) 0 units SC ACHS AIDAN PRN Reason: Protocol Vitamin B Complex/Vit C/Folic Acid (Nephro-Stone) 1 tab PO DAILY [facility] Results - Vital Signs Recent Vital Signs: Last Vital Signs Temp 97.9 F 02/21/17 15:55 Pulse 113 H 02/21/17 18:29 Resp 13 02/21/17 18:29 BP 98/70 L 02/21/17 18:29 Pulse Ox 98 02/21/17 14:12 - Labs Result Diagrams: 02/21/17 15:10 02/21/17 15:10 Labs: Laboratory Results - last 24 hr 02/21/17 02/21/17 02/21/17 13:45 15:10 15:10 WBC 3.2 L RBC 3.75 Hgb 12.3 Hct 38.1 MCV 101.6 MCH 32.8 MCHC 32.3 RDW 21.4 H Plt Count 152 MPV 11.2 H Gran % 60.9 Lymph % (Auto) 26.7 [place] % (Auto) 9.2 H Eos % (Auto) 1.9 Baso % (Auto) 1.3 Gran # 1.92 Lymph # 0.8 L [place] # 0.3 Eos # 0.1 Baso # 0.04 pCO2 41 pO2 53.0 L HCO3 25.4 ABG pH 7.40 ABG Total CO2 26.7 ABG O2 Saturation 89.9 L ABG O2 Content 15.1 ABG Base Excess 0.5 ABG Hemoglobin 12.4 ABG Carboxyhemoglobin 2.5 H POC ABG HHb (Measured) 9.7 H ABG Methemoglobin 0.9 ABG O2 Capacity 16.8 Hgb O2 Saturation 86.8 L FiO2 21.0 Sodium Potassium Chloride Carbon Dioxide Anion Gap BUN Creatinine Est GFR ( Amer) Est GFR (Non-Af Amer) Random Glucose Calcium Total Bilirubin AST ALT Alkaline Phosphatase Troponin I 0.07 Total Protein Albumin Globulin Albumin/Globulin Ratio 02/21/17 15:10 WBC RBC Hgb Hct MCV MCH MCHC RDW Plt Count MPV Gran % Lymph % (Auto) [place] % (Auto) Eos % (Auto) Baso % (Auto) Gran # Lymph # [place] # Eos # Baso # pCO2 pO2 HCO3 ABG pH ABG Total CO2 ABG O2 Saturation ABG O2 Content ABG Base Excess ABG Hemoglobin ABG Carboxyhemoglobin POC ABG HHb (Measured) ABG Methemoglobin ABG O2 Capacity Hgb O2 Saturation FiO2 Sodium 139 Potassium 3.4 L Chloride 100 Carbon Dioxide 26 Anion Gap 16 BUN 23 H Creatinine 7.8 H Est GFR ( Amer) 6 Est GFR (Non-Af Amer) 5 Random Glucose 84 Calcium 7.0 L Total Bilirubin 1.0 AST 33 ALT 21 Alkaline Phosphatase 117 Troponin I Total Protein 8.5 H Albumin 3.1 Globulin 5.4 Albumin/Globulin Ratio 0.6 L Attending/Attestation - Attestation I have personally seen and examined this patient.: Yes I have fully participated in the care of the patient.: Yes I have reviewed all pertinent clinical information: Yes Notes (Text): 02/21/17 19:05 66 y/o F s/p Cardiac cath that wasn't able to be done due to anatomical problems. Hypotension resolved on Dopamine and now off. Tolerated HD without hypotension Of all Anti htn medication. HR 100-120 a.fib - PRN Cardizem if needed. No current CP noted. Does have previous CAD history . No troponin elevation or EKG changes noted. 24 hr ICU watch. dvt p Heparin sq tid cc time 45 min
[2017-02-21 16:41] LABS: ADD MANUAL DIFF? NO
[2017-02-21 16:51] LABS: ALB/GLOB RATIO 0.6 (1.1-1.8); POTASSIUM 3.4 mmol/L (3.6-5.0); TOTAL PROTEIN 8.5 g/dL (5.8-8.3)
[2017-02-21 16:55] LABS: BASO # 0.04 K/mm3 (0.0-2.0); BASO % 1.3 % (0.0-3.0); EOS # 0.1 (0.0-0.7); EOS % 1.9 % (1.5-5.0); GRAN # 1.92 (1.4-6.5); GRAN % 60.9 % (50.0-68.0); HEMATOCRIT 38.1 % (36.0-48.0); LYMPH # 0.8 (1.2-3.4); LYMPH % 26.7 % (22.0-35.0); MEAN CELL VOLUME 101.6 fL (80.0-105.0); MEAN CORPUSCULAR HEMOGLOBIN 32.8 pg (25.0-35.0); MEAN CORPUSCULAR HGB CONC 32.3 g/dl (31.0-37.0); MEAN PLATELET VOLUME 11.2 fl (7.0-11.0); MONO # 0.3 (0.1-0.6); MONO % 9.2 % (1.0-6.0); PLATELET COUNT 152 10^3/uL (120.0-450.0); RED CELL DISTRIBUTION WIDTH 21.4 % (11.5-14.5); WHITE BLOOD COUNT 3.2 10^3/ul (4.5-11.0)
[2017-02-21] MEDS: Atovaquone 750 mg/5 ml Susp UD PO SCH (18:10)
[2017-02-21] MEDS: Insulin Reg-LOW-Coverage SC SCH (22:01)
[2017-02-21] MEDS ORDERED: Sodium Chloride 0.9% 250 ML IV STA (23:15)
[2017-02-21] MEDS ORDERED: Morphine 2 mg/ml ISec IVP STA (23:18)
--- NOTE | 2017-02-22 01:09 | CARD ---
APPROVED REPORT EXAM: Two-dimensional and M-mode echocardiogram with Doppler and color Doppler. INDICATION HYPOTENSION 2D DIMENSIONS Left Atrium (2D)5.4 (1.6-4.0cm)IVSd1.0 (0.7-1.1cm) LVDd6.6 (3.9-5.9cm)LVOT Diameter1.9 (1.8-2.4cm) PWd1.3 (0.7-1.1cm)LVDs6.1 (2.5-4.0cm) FS (%) 6.7 %LVEF (%)14.4 (>50%) M-Mode DIMENSIONS Aortic Root2.00 (2.2-3.7cm)Aortic Cusp Exc.0.60 (1.5-2.0cm) Aortic Valve AoV Peak Lgnilwir018.0cm/sAoV VTI27.5cmAO Peak GR.22mmHg LVOT Peak Wmwaewhc55.1cm/sLVOT VTI8.10cmAO Mean GR.12mmHg LINA (VMAX)0.03fj5EJY (VTI)0.84cm2 Mitral Valve E/A ratio0.0 TDI E/Lateral E'0.0E/Medial E'0.0 Tricuspid Valve TR Peak Oeysesnd215tw/sRAP [id number] Peak Gr.29mmHg [id number] LEFT VENTRICLE The Left Ventricle is moderately dilated. There is normal left ventricular wall thickness. The systolic function is severely impaired. No left ventricle thrombus noted on this study. RIGHT VENTRICLE The right ventricle is mildly dilated. There is normal right ventricular wall thickness. RV Systolic function is moderately reduced. There is a pacemaker lead in the right ventricle. ATRIA The left atrium is severely dilated. The right atrium is moderately dilated. AORTIC VALVE The aortic valve is moderately sclerotic. There is mild valvular aortic stenosis. MITRAL VALVE Mitral regurgitation is severe. TRICUSPID VALVE There is severe tricuspid regurgitation. There is mild pulmonary hypertension. GREAT VESSELS The aortic root displays moderate sclerocalcific changes of the aortic root. The IVC is dilated. The IVC collapses <50% with inspiration. <Conclusion> The Left Ventricle is moderately dilated. There is normal left ventricular wall thickness. The systolic function is severely impaired. No left ventricle thrombus noted on this study. There is mild valvular aortic stenosis. Mitral regurgitation is severe. There is severe tricuspid regurgitation. There is mild pulmonary hypertension.
--- NOTE | 2017-02-22 02:27 | CARD ---
APPROVED REPORT EKG Measurement Heart [id number] <Conclusion> Atrial fibrillation Left axis deviation Nonspecific intraventricular block Lateral infarct, age undetermined Abnormal ECG
--- NOTE | 2017-02-22 02:29 | CARD ---
APPROVED REPORT EKG Measurement Heart [id number] <Conclusion> Atrial fibrillation Left axis deviation Nonspecific intraventricular block T wave abnormality, consider lateral ischemia or digitalis effect Abnormal ECG
[2017-02-22 07:05] LABS: ADD MANUAL DIFF? NO
[2017-02-22 07:19] LABS: BASO # 0.04 K/mm3 (0.0-2.0); EOS # 0.1 (0.0-0.7); EOS % 2.2 % (1.5-5.0); GRAN # 2.36 (1.4-6.5); GRAN % 58.9 % (50.0-68.0); LYMPH # 1.1 (1.2-3.4); LYMPH % 27.9 % (22.0-35.0); MEAN CELL VOLUME 102.4 fL (80.0-105.0); MEAN CORPUSCULAR HEMOGLOBIN 32.2 pg (25.0-35.0); MEAN CORPUSCULAR HGB CONC 31.4 g/dl (31.0-37.0); MONO # 0.4 (0.1-0.6); PLATELET COUNT 130 10^3/uL (120.0-450.0); RED CELL DISTRIBUTION WIDTH 21.7 % (11.5-14.5)
[2017-02-22] MEDS: Insulin Reg-LOW-Coverage SC SCH ×4 (07:37→22:05)
[2017-02-22] MEDS: Meropenem 500 MG in Sodium Chloride 0.9% 100 ML IVPB SCH ×2 (08:59→22:05)
[2017-02-22] MEDS: Atovaquone 750 mg/5 ml Susp UD PO SCH ×2 (08:59→17:48)
[2017-02-22] MEDS: Multivitamin Vitamin B Complex (Nephro-Vite) Tab PO SCH (08:59)
[2017-02-22 09:22] LABS: ALB/GLOB RATIO 0.6 (1.1-1.8); BILIRUBIN,TOTAL 1.4 mg/dL (0.2-1.3); CALCIUM 7.3 mg/dL (8.4-10.5); POTASSIUM 4.3 mmol/L (3.6-5.0); TOTAL PROTEIN 9.2 g/dL (5.8-8.3)
--- NOTE | 2017-02-22 09:38 | CP.PCM.PN ---
Subjective - Date & Time of Evaluation Date of Evaluation: 02/22/17 Time of Evaluation: 09:36 - Subjective Subjective: Follow up Nephrology Consultation: Assessment/Plan: End stage renal disease on hemodialysis (MWF) via AVF: no acute need for dialysis today, will plan for tomorrow. Nephrovite 1 tab/day. Anemia: PRBC as needed. last Hb 13.2 hence ADI not indicated Hyperphosphatemia: continue with home meds Hypertension control with meds as ordered. Patient not on RAAS felicity as BP on low side. dopamine tapered off CHF and CAD management as per primary team/cardiology Glycemic control, Dialysis consistent diet Further work up/management as per primary team Dose meds/antibiotics (if needed) for ESRD status. Avoid fleets enema/magnesium based laxatives. Thanks for allowing me to participate in care of your patient. Will follow patient with you. Please call if any Qs Dr Adan Duong Office: [phone] Subjective: no overnight events. tolerated dialysis. denies CP/SOB/pain abdomen Physical Examination: General Appearance: Comfortable, in no acute respiratory distress, co-operative . Vitals reviewed and noted as below Lungs: Normal respiratory rate/effort. Breath sounds bilateral equal and clear Heart: Increased rate. s1s2 normal. No rub or gallop. SM+ at LSB Extremities: no edema. No varicose veins Neurological: Patient is awake and oriented to person, place and time. No focal deficit. Strength bilateral appropriate and equal Skin: dry. Normal turgor. No rash. Palpitation: Normal elasticity for age. extremities somewhat cold to touch Abdomen: Abdomen is soft. Bowel sounds +. There is no abdominal tenderness, no guarding/rigidity or organomegaly : kidney or bladder not palpable Access: RUE AVF with thrill and bruit Labs/imaging reviewed. Past medical history, past surgical history, family history, social history, allergy reviewed Objective - Vital Signs/Intake and Output Vital Signs (last 24 hours): Temp Pulse Resp BP Pulse Ox 97.5 F L 106 H 20 99/42 L 100 02/22/17 04:00 02/22/17 06:00 02/22/17 06:00 02/22/17 06:00 02/22/17 06:00 Intake and Output: 02/22/17 02/22/17 06:59 18:59 Intake Total 350 Balance 350 - Medications Medications: Current Medications Acetaminophen (Tylenol 325mg Tab) 650 mg PO Q4H PRN PRN Reason: Pain, Mild (1-3) Atovaquone (Mepron) 750 mg PO BID [facility] Last Admin: 02/22/17 08:59 Dose: 750 mg Diltiazem HCl (Cardizem) 5 mg IVP ONCE PRN PRN Reason: sustained HR >130 Heparin Sodium (Porcine) (Heparin) 5,000 units SC Q8 AIDAN PRN Reason: Protocol Last Admin: 02/22/17 05:36 Dose: 5,000 units Meropenem 500 mg/ Sodium (Chloride) 100 mls @ 100 mls/hr IVPB Q12 AIDAN PRN Reason: Protocol Stop: 02/28/17 15:07 Last Admin: 02/22/17 08:59 Dose: 100 mls/hr Insulin Human Regular (Humulin R Low) 0 units SC ACHS AIDAN PRN Reason: Protocol Last Admin: 02/22/17 07:37 Dose: Not Given Pantoprazole Sodium (Protonix Inj) 40 mg IVP DAILY [facility] Last Admin: 02/22/17 08:59 Dose: 40 mg Vitamin B Complex/Vit C/Folic Acid (Nephro-Stone) 1 tab PO DAILY [facility] Last Admin: 02/22/17 08:59 Dose: 1 tab - Labs Labs: 02/22/17 06:30 02/22/17 07:30 PT 15.1 Seconds (9.9-11.8) H 02/21/17 02:25 INR 1.40 (0.93-1.08) H 02/21/17 02:25 APTT 28.7 Seconds (23.7-30.8) 02/21/17 02:25
--- NOTE | 2017-02-22 09:54 | PN ---
DATE: 02/22/2017 I saw the patient in the intensive care unit. She is comfortable in bed, a little bit weak. Maybe m ildly confused at this time, but no chest pain or shortness of breath, no abdominal pain, no pain. PHYSICAL EXAMINATION: VITAL SIGNS: She has a 97.5 temp, 106 pulse, 99/42 blood pressure. It was as high as 161/82. Respi ratory rate is 20, and 100% O2 sat on nasal cannula. HEAD: Atraumatic, normocephalic. GENERAL: She is alert. She is looking at me, but forgetful. HEART: Regular rate. LUNGS: Decreased breath sounds, but clear. ABDOMEN: Soft, nontender. EXTREMITIES: No edema, but she is weak. MEDICATIONS: She is currently on Cardizem IV, heparin, insulin, Mepron, Merrem IV, Nephro-Stone, Prot zeina IV, and Tylenol. LABORATORY DATA: She has a 139 sodium, potassium 4.3 better. BUN 16, creatinine 6, GFR is 7. She i s being seen by renal. Sugar is 75, calcium 7.3. Total bili is 1.4. AST is 36. ALT is 14, alk maurilio s 123. Total protein is 9.2. She has a white count of 4, hemoglobin 13.2, hematocrit 42, platelets of 130. She is being seen by the welder apprentice, infectious disease, renal, cardiology. I called in GI because the CAT scan of the abdomen and pelvis showed colitis. She had recurrent chest pain, hypotension, no evidence of acute myocardial infarction, end-stage renal disease, peripheral vascular disease, diabe tic neuropathy, colitis, and she is very weak. We are going to check her labs tomorrow. I need phys ical therapy to see her. She is on a renal diet. Hopefully, she can eat. If she cannot, we will ch ja it over to clears. Continue with aggressive treatment and care for the patient. She will proba jossy need subacute rehab when we are done. Yossi Marcus DO cc: [id number] TT: 02/22/2017 09:54:33 Confirmation # [id number] Dictation # [id number]
[2017-02-22] MEDS ORDERED: Sodium Chloride 0.45% 1,000 ML IV ONE (10:56)
--- NOTE | 2017-02-22 11:12 | CP.PCM.CON ---
<Garret Dickens - Last Filed: 02/22/17 13:17> History of Present Illness - History of Present Illness History of Present Illness: PGY4 GI Fellow Consult Note Patient is a 66yo female with PMHx including HIV on HAART, CHF (EF30%), atrial fibrillation on coumadin, CAD s/p PCI with FEDE to RCA, COPD, ESRD on HD MWF who presented to the ED following a fall at home. The patient is a poor historian, difficult to understand and overall very weak. EMR reviewed, patient presented followed and fall at home 4 days prior to arrival. She was having right sided pain and generalized weakness and was seeking further evaluation in the ED. On admission, CT of the head/chest/abd/pelvis revealed encephalomalacia and transverse colitis (noncontrast study). The patient did not admit to diarrhea on admission to ED staff but now states she was having loose stool for up to one week prior to admission. At present, she has not had BM in over 24H. No fever, chills. Does admit to ongoing nausea and occasional vomiting. PMHx: See HPI PSHx: PCI with FEDE to RCA, tubal ligation, ICD insertion, Right AVF formation, abdominal wall lesion removed (fatty necrosis per path) FHx: Discuss with patient and denies any significant history Social: Denies tobacco, EtOH or illicit drug use Endo: Colonoscopy [place] [address] Kam which showed multiple colon polyps, no EGD Review of Systems - Constitutional Constitutional: Fatigue, Weakness. absent: Anorexia, Chills, Fever - EENT Eyes: absent: Change in Vision Nose/Mouth/Throat: absent: Sore Throat - Cardiovascular Cardiovascular: Chest Pain. absent: Dyspnea, Edema - Respiratory Respiratory: Cough. absent: Dyspnea, Excessive Mucous Production - Gastrointestinal Gastrointestinal: Abdominal Pain, Bloating. absent: Constipation, Cramping, Diarrhea, Dyspepsia, Dysphagia, Hematemesis, Loose Stools, Melena, Nausea, Odynophagia, Vomiting - Genitourinary Genitourinary: absent: Dysuria, Urinary Frequency, Urinary Urgency - Musculoskeletal Musculoskeletal: Muscle Cramps. absent: Back Pain, Neck Pain - Integumentary Integumentary: absent: New Lesions, Rash - Neurological Neurological: absent: Dizziness, Numbness, Focal Weakness - Psychiatric Psychiatric: absent: Anxiety, Depression - Endocrine Endocrine: Fatigue. absent: Polydipsia, Polyphagia, Polyuria - Hematologic/Lymphatic Hematologic: absent: Easy Bleeding, Easy Bruising, Lymphadenopathy Past Patient History - Infectious Disease Hx of Infectious Diseases: None - Tetanus Immunizations Tetanus Immunization: Unknown - Past Social History Smoking Status: Former Smoker - CARDIAC Hx Hypertension: Yes Other/Comment: Internal defibrillator 2002 - PULMONARY Hx Respiratory Disorders: Yes Hx Asthma: Yes Hx Chronic Obstructive Pulmonary Disease (COPD): Yes Hx Pneumonia: Yes - NEUROLOGICAL Hx Neurological Disorder: Yes HX Cerebrovascular Accident: Yes Hx Dizziness: Yes Hx Transient Ischemic Attacks (TIA): Yes Other/Comment: speech impediment and no feeling to bottom of left foot post cva - HEENT Hx HEENT Problems: Yes (glasses) - RENAL Hx Dialysis: Yes (m/w/f right arm access) - ENDOCRINE/METABOLIC Hx Diabetes Mellitus Type 2: Yes - HEMATOLOGICAL/ONCOLOGICAL Hx Blood Disorders: Yes - INTEGUMENTARY Hx Dermatological Problems: No - MUSCULOSKELETAL/RHEUMATOLOGICAL Hx Falls: Yes (past) - GASTROINTESTINAL Hx Gastrointestinal Disorders: No - GENITOURINARY/GYNECOLOGICAL Hx Genitourinary Disorders: Yes - PSYCHIATRIC Hx Psychophysiologic Disorder: No Hx Depression: No Hx Emotional Abuse: No Hx Physical Abuse: No - SURGICAL HISTORY Hx Cardiac Catheterization: Yes Hx Coronary Stent: Yes (x1 2002) Hx Open Heart Surgery: Yes (defibrillator 2002) Other/Comment: defibrilator/pacemaker --tubal ligation --cardiac cath with stents-- cystoscopy,urethral dilatation, bilateral retrograde pyelogram, fistulagrams, abd wall hematoma exc abd wall mass 06/2014, r av fistula upper arm (ALL CONFIRMED AND FROM PAST TRIAGE) - ANESTHESIA Hx Anesthesia: No Meds Allergies/Adverse Reactions: Allergies Allergy/AdvReac Type Severity Reaction Status Date / Time sulfamethoxazole Allergy RASH Verified 02/21/17 01:28 [From Bactrim] trimethoprim [From Bactrim] Allergy RASH Verified 02/21/17 01:28 - Medications Medications: Current Medications Acetaminophen (Tylenol 325mg Tab) 650 mg PO Q4H PRN PRN Reason: Pain, Mild (1-3) Atovaquone (Mepron) 750 mg PO BID AIDAN Last Admin: 02/22/17 08:59 Dose: 750 mg Diltiazem HCl (Cardizem) 5 mg IVP ONCE PRN PRN Reason: sustained HR >130 Heparin Sodium (Porcine) (Heparin) 5,000 units SC Q8 AIDAN PRN Reason: Protocol Last Admin: 02/22/17 05:36 Dose: 5,000 units Meropenem 500 mg/ Sodium (Chloride) 100 mls @ 100 mls/hr IVPB Q12 AIDAN PRN Reason: Protocol Stop: 02/28/17 15:07 Last Admin: 02/22/17 08:59 Dose: 100 mls/hr Insulin Human Regular (Humulin R Low) 0 units SC ACHS AIDAN PRN Reason: Protocol Last Admin: 02/22/17 07:37 Dose: Not Given Pantoprazole Sodium (Protonix Inj) 40 mg IVP DAILY [facility] Last Admin: 02/22/17 08:59 Dose: 40 mg Vitamin B Complex/Vit C/Folic Acid (Nephro-Stone) 1 tab PO DAILY [facility] Last Admin: 02/22/17 08:59 Dose: 1 tab Physical Exam - Constitutional Appears: Non-toxic, Older Than Stated Age - Eye Exam Eye Exam: EOMI, PERRL - ENT Exam ENT Exam: Mucous Membranes Dry - Respiratory Exam Respiratory Exam: Clear to Auscultation Bilateral. absent: Rales, Rhonchi, Wheezes - Cardiovascular Exam Cardiovascular Exam: Tachycardia, Irregular Rhythm, +S1, +S2 - GI/Abdominal Exam GI & Abdominal Exam: Normal Bowel Sounds, Soft. absent: Distended, Firm, Guarding, Organomegaly, Rigid, Tenderness - Extremities Exam Extremities exam: Positive for: normal inspection. Negative for: pedal edema - Neurological Exam Neurological exam: Alert, Oriented x3 - Psychiatric Exam Psychiatric exam: Anxious, Depressed - Skin Skin Exam: Dry, Warm Results - Vital Signs Recent Vital Signs: Last Vital Signs Temp 97.8 F 02/22/17 08:00 Pulse 101 H 02/22/17 10:00 Resp 12 02/22/17 08:00 BP 102/54 L 02/22/17 08:00 Pulse Ox 100 02/22/17 08:00 - Labs Result Diagrams: 02/22/17 06:30 02/22/17 07:30 Labs: Laboratory Results - last 24 hr 02/21/17 02/21/17 02/21/17 11:08 13:45 15:10 WBC RBC Hgb Hct MCV MCH MCHC RDW Plt Count MPV Gran % Lymph % (Auto) [place] % (Auto) Eos % (Auto) Baso % (Auto) Gran # Lymph # [place] # Eos # Baso # pCO2 41 pO2 53.0 L HCO3 25.4 ABG pH 7.40 ABG Total CO2 26.7 ABG O2 Saturation 89.9 L ABG O2 Content 15.1 ABG Base Excess 0.5 ABG Hemoglobin 12.4 ABG Carboxyhemoglobin 2.5 H POC ABG HHb (Measured) 9.7 H ABG Methemoglobin 0.9 ABG O2 Capacity 16.8 Hgb O2 Saturation 86.8 L FiO2 21.0 Sodium Potassium Chloride Carbon Dioxide Anion Gap BUN Creatinine Est GFR ( Amer) Est GFR (Non-Af Amer) POC Glucose (mg/dL) 93 Random Glucose Calcium Total Bilirubin AST ALT Alkaline Phosphatase Troponin I 0.07 Total Protein Albumin Globulin Albumin/Globulin Ratio 02/21/17 02/21/17 02/21/17 15:10 15:10 20:58 WBC 3.2 L RBC 3.75 Hgb 12.3 Hct 38.1 MCV 101.6 MCH 32.8 MCHC 32.3 RDW 21.4 H Plt Count 152 MPV 11.2 H Gran % 60.9 Lymph % (Auto) 26.7 [place] % (Auto) 9.2 H Eos % (Auto) 1.9 Baso % (Auto) 1.3 Gran # 1.92 Lymph # 0.8 L [place] # 0.3 Eos # 0.1 Baso # 0.04 pCO2 pO2 HCO3 ABG pH ABG Total CO2 ABG O2 Saturation ABG O2 Content ABG Base Excess ABG Hemoglobin ABG Carboxyhemoglobin POC ABG HHb (Measured) ABG Methemoglobin ABG O2 Capacity Hgb O2 Saturation FiO2 Sodium 139 Potassium 3.4 L Chloride 100 Carbon Dioxide 26 Anion Gap 16 BUN 23 H Creatinine 7.8 H Est GFR ( Amer) 6 Est GFR (Non-Af Amer) 5 POC Glucose (mg/dL) Random Glucose 84 Calcium 7.0 L Total Bilirubin 1.0 AST 33 ALT 21 Alkaline Phosphatase 117 Troponin I 0.07 Total Protein 8.5 H Albumin 3.1 Globulin 5.4 Albumin/Globulin Ratio 0.6 L 02/21/17 02/22/17 02/22/17 21:56 06:30 07:30 WBC 4.0 L D RBC 4.10 Hgb 13.2 Hct 42.0 MCV 102.4 MCH 32.2 MCHC 31.4 RDW 21.7 H Plt Count 130 MPV 11.0 Gran % 58.9 Lymph % (Auto) 27.9 [place] % (Auto) 10.0 H Eos % (Auto) 2.2 Baso % (Auto) 1.0 Gran # 2.36 Lymph # 1.1 L [place] # 0.4 Eos # 0.1 Baso # 0.04 pCO2 pO2 HCO3 ABG pH ABG Total CO2 ABG O2 Saturation ABG O2 Content ABG Base Excess ABG Hemoglobin ABG Carboxyhemoglobin POC ABG HHb (Measured) ABG Methemoglobin ABG O2 Capacity Hgb O2 Saturation FiO2 Sodium 139 Potassium 4.3 Chloride 99 Carbon Dioxide 26 Anion Gap 18 BUN 16 Creatinine 6.0 H Est GFR ( Amer) 8 Est GFR (Non-Af Amer) 7 POC Glucose (mg/dL) 74 Random Glucose 75 Calcium 7.3 L Total Bilirubin 1.4 H AST 36 ALT 14 Alkaline Phosphatase 123 Troponin I Total Protein 9.2 H Albumin 3.4 Globulin 5.7 Albumin/Globulin Ratio 0.6 L Assessment & Plan - Assessment and Plan (Free Text) Assessment: Patient is a 66yo female with PMHx including HIV on HAART, CHF (EF30%), atrial fibrillation on coumadin, CAD s/p PCI with FEDE to RCA, COPD, ESRD on HD MWF who presented to the ED following a fall at home. Our service has been consulted for finding of transverse colitis. -Transverse colitis -HIV on HAART Plan: -Continue current approach with IV antibiotics as ordered; ID following -Unknown CD4 count -If patient has recurrent diarrhea, check C. diff, stool cx, O&P as well as considering eval for opportunistic infections such as isospora, cryptosporidosis , microsporidiosis -Would benefit from outpatient colonoscopy 6-8 weeks from resolution of symptoms - Date & Time Date: 02/22/17 Time: 10:00 <Manas Oreilly - Last Filed: 02/22/17 13:44> Meds - Medications Medications: Current Medications Acetaminophen (Tylenol 325mg Tab) 650 mg PO Q4H PRN PRN Reason: Pain, Mild (1-3) Atovaquone (Mepron) 750 mg PO BID AIDAN Last Admin: 02/22/17 08:59 Dose: 750 mg Diltiazem HCl (Cardizem) 5 mg IVP ONCE PRN PRN Reason: sustained HR >130 Heparin Sodium (Porcine) (Heparin) 5,000 units SC Q8 AIDAN PRN Reason: Protocol Last Admin: 02/22/17 05:36 Dose: 5,000 units Meropenem 500 mg/ Sodium (Chloride) 100 mls @ 100 mls/hr IVPB Q12 AIDAN PRN Reason: Protocol Stop: 02/28/17 15:07 Last Admin: 02/22/17 08:59 Dose: 100 mls/hr Insulin Human Regular (Humulin R Low) 0 units SC ACHS AIDAN PRN Reason: Protocol Last Admin: 02/22/17 12:44 Dose: Not Given Pantoprazole Sodium (Protonix Inj) 40 mg IVP DAILY [facility] Last Admin: 02/22/17 08:59 Dose: 40 mg Vitamin B Complex/Vit C/Folic Acid (Nephro-Stone) 1 tab PO DAILY [facility] Last Admin: 02/22/17 08:59 Dose: 1 tab Results - Vital Signs Recent Vital Signs: Last Vital Signs Temp 97.8 F 02/22/17 08:00 Pulse 94 H 02/22/17 11:08 Resp 16 02/22/17 11:08 BP 82/31 L 02/22/17 11:08 Pulse Ox 97 02/22/17 11:08 - Labs Result Diagrams: 02/22/17 06:30 02/22/17 07:30 Labs: Laboratory Results - last 24 hr 02/21/17 02/21/17 02/21/17 11:08 13:45 15:10 WBC RBC Hgb Hct MCV MCH MCHC RDW Plt Count MPV Gran % Lymph % (Auto) [place] % (Auto) Eos % (Auto) Baso % (Auto) Gran # Lymph # [place] # Eos # Baso # pCO2 41 pO2 53.0 L HCO3 25.4 ABG pH 7.40 ABG Total CO2 26.7 ABG O2 Saturation 89.9 L ABG O2 Content 15.1 ABG Base Excess 0.5 ABG Hemoglobin 12.4 ABG Carboxyhemoglobin 2.5 H POC ABG HHb (Measured) 9.7 H ABG Methemoglobin 0.9 ABG O2 Capacity 16.8 Hgb O2 Saturation 86.8 L FiO2 21.0 Sodium Potassium Chloride Carbon Dioxide Anion Gap BUN Creatinine Est GFR ( Amer) Est GFR (Non-Af Amer) POC Glucose (mg/dL) 93 Random Glucose Calcium Total Bilirubin AST ALT Alkaline Phosphatase Troponin I 0.07 Total Protein Albumin Globulin Albumin/Globulin Ratio 02/21/17 02/21/17 02/21/17 15:10 15:10 20:58 WBC 3.2 L RBC 3.75 Hgb 12.3 Hct 38.1 MCV 101.6 MCH 32.8 MCHC 32.3 RDW 21.4 H Plt Count 152 MPV 11.2 H Gran % 60.9 Lymph % (Auto) 26.7 [place] % (Auto) 9.2 H Eos % (Auto) 1.9 Baso % (Auto) 1.3 Gran # 1.92 Lymph # 0.8 L [place] # 0.3 Eos # 0.1 Baso # 0.04 pCO2 pO2 HCO3 ABG pH ABG Total CO2 ABG O2 Saturation ABG O2 Content ABG Base Excess ABG Hemoglobin ABG Carboxyhemoglobin POC ABG HHb (Measured) ABG Methemoglobin ABG O2 Capacity Hgb O2 Saturation FiO2 Sodium 139 Potassium 3.4 L Chloride 100 Carbon Dioxide 26 Anion Gap 16 BUN 23 H Creatinine 7.8 H Est GFR ( Amer) 6 Est GFR (Non-Af Amer) 5 POC Glucose (mg/dL) Random Glucose 84 Calcium 7.0 L Total Bilirubin 1.0 AST 33 ALT 21 Alkaline Phosphatase 117 Troponin I 0.07 Total Protein 8.5 H Albumin 3.1 Globulin 5.4 Albumin/Globulin Ratio 0.6 L 02/21/17 02/22/17 02/22/17 21:56 06:30 07:30 WBC 4.0 L D RBC 4.10 Hgb 13.2 Hct 42.0 MCV 102.4 MCH 32.2 MCHC 31.4 RDW 21.7 H Plt Count 130 MPV 11.0 Gran % 58.9 Lymph % (Auto) 27.9 [place] % (Auto) 10.0 H Eos % (Auto) 2.2 Baso % (Auto) 1.0 Gran # 2.36 Lymph # 1.1 L [place] # 0.4 Eos # 0.1 Baso # 0.04 pCO2 pO2 HCO3 ABG pH ABG Total CO2 ABG O2 Saturation ABG O2 Content ABG Base Excess ABG Hemoglobin ABG Carboxyhemoglobin POC ABG HHb (Measured) ABG Methemoglobin ABG O2 Capacity Hgb O2 Saturation FiO2 Sodium 139 Potassium 4.3 Chloride 99 Carbon Dioxide 26 Anion Gap 18 BUN 16 Creatinine 6.0 H Est GFR ( Amer) 8 Est GFR (Non-Af Amer) 7 POC Glucose (mg/dL) 74 Random Glucose 75 Calcium 7.3 L Total Bilirubin 1.4 H AST 36 ALT 14 Alkaline Phosphatase 123 Troponin I Total Protein 9.2 H Albumin 3.4 Globulin 5.7 Albumin/Globulin Ratio 0.6 L Attending/Attestation - Attestation I have personally seen and examined this patient.: Yes I have fully participated in the care of the patient.: Yes I have reviewed all pertinent clinical information: Yes Notes (Text): 02/22/17 13:42 66 year old female with h/o HIV on HAART, CHF, afib on coumadin, CAD s/p FEDE, COPD, ESRD on HD MWF admitted after a fall, found to have abnormal thickenign of transverse colon. 1. Abnormal CT scan of the GI tract, colon 2. Diarrhea Plan: -she previously was complaining of diarrhea, but hasn't had a bm in past 2 days -if she does have a bm/diarrhea, would send for infectious workup as above -would recommend outpatient colonoscopy in 6-8 weeks after acute issues are resolved to evaluate abnormal CT scan -continue with antibiotics per ID
--- NOTE | 2017-02-22 12:37 | CP.CCUPN ---
<Samra Higgins - Last Filed: 02/22/17 18:13> CCU Subjective - Physician Review Events Since Last Encounter (Free Text): 02/22/17 12:34 Pt s/e at bedside this AM. Patient had more right sided aching chest pain overnight which did not resolve with nitro but resolved with morphine. Patient also had hypotension that resolved with 250cc bolus of NS. Patient reports chest pain persists and that it is worse with deep inhalation and position and is reproducible with palpation CCU Objective - Vital Signs / Intake & Output Vital Signs (Last 4 hours): Vital Signs Pulse Resp BP Pulse Ox 02/22/17 11:08 94 H 16 82/31 L 97 02/22/17 10:00 101 H Intake and Output (Last 8hrs): Intake & Output 02/21/17 02/22/17 02/22/17 22:59 06:59 14:59 Intake Total 30 350 Output Total 1400 Balance -1370 350 Intake: IV 350 Left External Jugular 350 Other 30 Output: Other 1400 - Physical Exam Head: Positive for: Atraumatic, Normocephalic Pupils: Positive for: PERRL Extroacular Muscles: Positive for: EOMI Conjunctiva: Positive for: Normal Mouth: Positive for: Moist Mucous Membranes Pharnyx: Positive for: Normal Neck: Positive for: Normal Range of Motion Respiratory/Chest: Positive for: Clear to Auscultation, Good Air Exchange, Tender to Palpation (right ribs sternal border). Negative for: Respiratory Distress, Accessory Muscle Use Cardiovascular: Positive for: Murmurs (III/ Systolic murmur on auscultation of LSB), Normal S1, S2, Irregular Rhythm, Tachycardic Abdomen: Positive for: Normal Bowel Sounds. Negative for: Tenderness, Distention, Peritoneal Signs Back: Positive for: Normal Inspection Upper Extremity: Positive for: Normal Inspection, NORMAL PULSES, Capillary Refill < 2s. Negative for: Cyanosis, Edema Lower Extremity: Positive for: Normal Inspection, Capillary Refill < 2 s, Other (gross motor intact, BL groin catheter access site covered in dressing c/d/i, no hematoma or active bleed). Negative for: Edema, CALF TENDERNESS, NORMAL PULSES Neurological: Positive for: GCS=15, CN II-XII Intact, Speech Normal, Motor Func Grossly Intact, Memory Normal Skin: Positive for: Warm, Dry, Normal Color. Negative for: Rashes Psychiatric: Positive for: Alert, Oriented x 3, Normal Concentration, Anxious - Medications Active Medications: Active Medications Generic Name Dose Route Start Last Admin Trade Name Freq PRN Reason Stop Dose Admin Acetaminophen 650 mg 02/21/17 04:13 Tylenol 325mg Tab PO Q4H PRN Pain, Mild (1-3) Atovaquone 750 mg 02/21/17 18:00 02/22/17 08:59 Mepron PO 750 mg BID AIDAN Administration Diltiazem HCl 5 mg 02/21/17 18:38 Cardizem IVP ONCE PRN sustained HR >130 Heparin Sodium (Porcine) 5,000 units 02/21/17 22:00 02/22/17 05:36 Heparin SC 5,000 units Q8 [facility] Administration Protocol Meropenem 500 mg/ Sodium 100 mls @ 100 mls/hr 02/21/17 15:06 02/22/17 08:59 Chloride IVPB 02/28/17 15:07 100 mls/hr Q12 AIDAN Administration Protocol Insulin Human Regular 0 units 02/21/17 22:00 02/22/17 07:37 Humulin R Low SC Not Given ACHS AIDAN Protocol Pantoprazole Sodium 40 mg 02/22/17 10:00 02/22/17 08:59 Protonix Inj IVP 40 mg DAILY AIDAN Administration Vitamin B Complex/Vit C/Folic Acid 1 tab 02/22/17 10:00 02/22/17 08:59 Nephro-Stone PO 1 tab DAILY AIDAN Administration - Patient Studies Lab Studies: Lab Studies 02/22/17 02/22/17 02/21/17 Range/Units 07:30 06:30 21:56 WBC 4.0 L D (4.5-11.0) 10^3/ul RBC 4.10 (3.5-6.1) 10^6/uL Hgb 13.2 (12.0-16.0) gm/dL Hct 42.0 (36.0-48.0) % MCV 102.4 (80.0-105.0) fL MCH 32.2 (25.0-35.0) pg MCHC 31.4 (31.0-37.0) g/dl RDW 21.7 H (11.5-14.5) % Plt Count 130 (120.0-450.0) 10^3/uL MPV 11.0 (7.0-11.0) fl Gran % 58.9 (50.0-68.0) % Lymph % (Auto) 27.9 (22.0-35.0) % [place] % (Auto) 10.0 H (1.0-6.0) % Eos % (Auto) 2.2 (1.5-5.0) % Baso % (Auto) 1.0 (0.0-3.0) % Gran # 2.36 (1.4-6.5) Lymph # 1.1 L (1.2-3.4) [place] # 0.4 (0.1-0.6) Eos # 0.1 (0.0-0.7) Baso # 0.04 (0.0-2.0) K/mm3 pCO2 (35-45) mm/Hg pO2 (80-100) mm/Hg HCO3 (21-28) mmol/L ABG pH (7.35-7.45) ABG Total CO2 (22-28) mmol.L ABG O2 Saturation (95-98) % ABG O2 Content (15-23) ML/dl ABG Base Excess (-2.0-3.0) mmol/L ABG Hemoglobin (11.7-17.4) g/dL ABG Carboxyhemoglobin (0.5-1.5) % POC ABG HHb (Measured) (0-5) % ABG Methemoglobin (0.0-3.0) % ABG O2 Capacity (16-24) mL/dl Hgb O2 Saturation (95.0-98.0) % FiO2 % Sodium 139 (132-148) mmol/L Potassium 4.3 (3.6-5.0) mmol/L Chloride 99 (98-107) mmol/L Carbon Dioxide 26 (21-33) mmol/L Anion Gap 18 (10-20) BUN 16 (7-21) mg/dL Creatinine 6.0 H (0.5-1.4) mg/dL Est GFR ( Amer) 8 Est GFR (Non-Af Amer) 7 POC Glucose (mg/dL) 74 (65-110) mg/dL Random Glucose 75 (70-110) mg/dL Calcium 7.3 L (8.4-10.5) mg/dL Total Bilirubin 1.4 H (0.2-1.3) mg/dL AST 36 (15-39) U/L ALT 14 (7-56) U/L Alkaline Phosphatase 123 (38-133) U/L Troponin I ng/mL Total Protein 9.2 H (5.8-8.3) g/dL Albumin 3.4 (3.0-4.8) g/dL Globulin 5.7 gm/dL Albumin/Globulin Ratio 0.6 L (1.1-1.8) 02/21/17 02/21/17 02/21/17 Range/Units 20:58 15:10 15:10 WBC 3.2 L (4.5-11.0) 10^3/ul RBC 3.75 (3.5-6.1) 10^6/uL Hgb 12.3 (12.0-16.0) gm/dL Hct 38.1 (36.0-48.0) % MCV 101.6 (80.0-105.0) fL MCH 32.8 (25.0-35.0) pg MCHC 32.3 (31.0-37.0) g/dl RDW 21.4 H (11.5-14.5) % Plt Count 152 (120.0-450.0) 10^3/uL MPV 11.2 H (7.0-11.0) fl Gran % 60.9 (50.0-68.0) % Lymph % (Auto) 26.7 (22.0-35.0) % [place] % (Auto) 9.2 H (1.0-6.0) % Eos % (Auto) 1.9 (1.5-5.0) % Baso % (Auto) 1.3 (0.0-3.0) % Gran # 1.92 (1.4-6.5) Lymph # 0.8 L (1.2-3.4) [place] # 0.3 (0.1-0.6) Eos # 0.1 (0.0-0.7) Baso # 0.04 (0.0-2.0) K/mm3 pCO2 (35-45) mm/Hg pO2 (80-100) mm/Hg HCO3 (21-28) mmol/L ABG pH (7.35-7.45) ABG Total CO2 (22-28) mmol.L ABG O2 Saturation (95-98) % ABG O2 Content (15-23) ML/dl ABG Base Excess (-2.0-3.0) mmol/L ABG Hemoglobin (11.7-17.4) g/dL ABG Carboxyhemoglobin (0.5-1.5) % POC ABG HHb (Measured) (0-5) % ABG Methemoglobin (0.0-3.0) % ABG O2 Capacity (16-24) mL/dl Hgb O2 Saturation (95.0-98.0) % FiO2 % Sodium 139 (132-148) mmol/L Potassium 3.4 L (3.6-5.0) mmol/L Chloride 100 (98-107) mmol/L Carbon Dioxide 26 (21-33) mmol/L Anion Gap 16 (10-20) BUN 23 H (7-21) mg/dL Creatinine 7.8 H (0.5-1.4) mg/dL Est GFR ( Amer) 6 Est GFR (Non-Af Amer) 5 POC Glucose (mg/dL) (65-110) mg/dL Random Glucose 84 (70-110) mg/dL Calcium 7.0 L (8.4-10.5) mg/dL Total Bilirubin 1.0 (0.2-1.3) mg/dL AST 33 (15-39) U/L ALT 21 (7-56) U/L Alkaline Phosphatase 117 (38-133) U/L Troponin I 0.07 ng/mL Total Protein 8.5 H (5.8-8.3) g/dL Albumin 3.1 (3.0-4.8) g/dL Globulin 5.4 gm/dL Albumin/Globulin Ratio 0.6 L (1.1-1.8) 02/21/17 02/21/17 02/21/17 Range/Units 15:10 13:45 11:08 WBC (4.5-11.0) 10^3/ul RBC (3.5-6.1) 10^6/uL Hgb (12.0-16.0) gm/dL Hct (36.0-48.0) % MCV (80.0-105.0) fL MCH (25.0-35.0) pg MCHC (31.0-37.0) g/dl RDW (11.5-14.5) % Plt Count (120.0-450.0) 10^3/uL MPV (7.0-11.0) fl Gran % (50.0-68.0) % Lymph % (Auto) (22.0-35.0) % [place] % (Auto) (1.0-6.0) % Eos % (Auto) (1.5-5.0) % Baso % (Auto) (0.0-3.0) % Gran # (1.4-6.5) Lymph # (1.2-3.4) [place] # (0.1-0.6) Eos # (0.0-0.7) Baso # (0.0-2.0) K/mm3 pCO2 41 (35-45) mm/Hg pO2 53.0 L (80-100) mm/Hg HCO3 25.4 (21-28) mmol/L ABG pH 7.40 (7.35-7.45) ABG Total CO2 26.7 (22-28) mmol.L ABG O2 Saturation 89.9 L (95-98) % ABG O2 Content 15.1 (15-23) ML/dl ABG Base Excess 0.5 (-2.0-3.0) mmol/L ABG Hemoglobin 12.4 (11.7-17.4) g/dL ABG Carboxyhemoglobin 2.5 H (0.5-1.5) % POC ABG HHb (Measured) 9.7 H (0-5) % ABG Methemoglobin 0.9 (0.0-3.0) % ABG O2 Capacity 16.8 (16-24) mL/dl Hgb O2 Saturation 86.8 L (95.0-98.0) % FiO2 21.0 % Sodium (132-148) mmol/L Potassium (3.6-5.0) mmol/L Chloride (98-107) mmol/L Carbon Dioxide (21-33) mmol/L Anion Gap (10-20) BUN (7-21) mg/dL Creatinine (0.5-1.4) mg/dL Est GFR ( Amer) Est GFR (Non-Af Amer) POC Glucose (mg/dL) 93 (65-110) mg/dL Random Glucose (70-110) mg/dL Calcium (8.4-10.5) mg/dL Total Bilirubin (0.2-1.3) mg/dL AST (15-39) U/L ALT (7-56) U/L Alkaline Phosphatase (38-133) U/L Troponin I 0.07 ng/mL Total Protein (5.8-8.3) g/dL Albumin (3.0-4.8) g/dL Globulin gm/dL Albumin/Globulin Ratio (1.1-1.8) Laboratory Results - last 24 hr 02/21/17 02/21/17 02/21/17 11:08 13:45 15:10 WBC RBC Hgb Hct MCV MCH MCHC RDW Plt Count MPV Gran % Lymph % (Auto) [place] % (Auto) Eos % (Auto) Baso % (Auto) Gran # Lymph # [place] # Eos # Baso # pCO2 41 pO2 53.0 L HCO3 25.4 ABG pH 7.40 ABG Total CO2 26.7 ABG O2 Saturation 89.9 L ABG O2 Content 15.1 ABG Base Excess 0.5 ABG Hemoglobin 12.4 ABG Carboxyhemoglobin 2.5 H POC ABG HHb (Measured) 9.7 H ABG Methemoglobin 0.9 ABG O2 Capacity 16.8 Hgb O2 Saturation 86.8 L FiO2 21.0 Sodium Potassium Chloride Carbon Dioxide Anion Gap BUN Creatinine Est GFR ( Amer) Est GFR (Non-Af Amer) POC Glucose (mg/dL) 93 Random Glucose Calcium Total Bilirubin AST ALT Alkaline Phosphatase Troponin I 0.07 Total Protein Albumin Globulin Albumin/Globulin Ratio 02/21/17 02/21/17 02/21/17 15:10 15:10 20:58 WBC 3.2 L RBC 3.75 Hgb 12.3 Hct 38.1 MCV 101.6 MCH 32.8 MCHC 32.3 RDW 21.4 H Plt Count 152 MPV 11.2 H Gran % 60.9 Lymph % (Auto) 26.7 [place] % (Auto) 9.2 H Eos % (Auto) 1.9 Baso % (Auto) 1.3 Gran # 1.92 Lymph # 0.8 L [place] # 0.3 Eos # 0.1 Baso # 0.04 pCO2 pO2 HCO3 ABG pH ABG Total CO2 ABG O2 Saturation ABG O2 Content ABG Base Excess ABG Hemoglobin ABG Carboxyhemoglobin POC ABG HHb (Measured) ABG Methemoglobin ABG O2 Capacity Hgb O2 Saturation FiO2 Sodium 139 Potassium 3.4 L Chloride 100 Carbon Dioxide 26 Anion Gap 16 BUN 23 H Creatinine 7.8 H Est GFR ( Amer) 6 Est GFR (Non-Af Amer) 5 POC Glucose (mg/dL) Random Glucose 84 Calcium 7.0 L Total Bilirubin 1.0 AST 33 ALT 21 Alkaline Phosphatase 117 Troponin I 0.07 Total Protein 8.5 H Albumin 3.1 Globulin 5.4 Albumin/Globulin Ratio 0.6 L 02/21/17 02/22/17 02/22/17 21:56 06:30 07:30 WBC 4.0 L D RBC 4.10 Hgb 13.2 Hct 42.0 MCV 102.4 MCH 32.2 MCHC 31.4 RDW 21.7 H Plt Count 130 MPV 11.0 Gran % 58.9 Lymph % (Auto) 27.9 [place] % (Auto) 10.0 H Eos % (Auto) 2.2 Baso % (Auto) 1.0 Gran # 2.36 Lymph # 1.1 L [place] # 0.4 Eos # 0.1 Baso # 0.04 pCO2 pO2 HCO3 ABG pH ABG Total CO2 ABG O2 Saturation ABG O2 Content ABG Base Excess ABG Hemoglobin ABG Carboxyhemoglobin POC ABG HHb (Measured) ABG Methemoglobin ABG O2 Capacity Hgb O2 Saturation FiO2 Sodium 139 Potassium 4.3 Chloride 99 Carbon Dioxide 26 Anion Gap 18 BUN 16 Creatinine 6.0 H Est GFR ( Amer) 8 Est GFR (Non-Af Amer) 7 POC Glucose (mg/dL) 74 Random Glucose 75 Calcium 7.3 L Total Bilirubin 1.4 H AST 36 ALT 14 Alkaline Phosphatase 123 Troponin I Total Protein 9.2 H Albumin 3.4 Globulin 5.7 Albumin/Globulin Ratio 0.6 L Fingerstick Blood Sugar Results: 96 Review of Systems - Review of Systems All systems: reviewed and no additional remarkable complaints except (as per HPI ) - Constitutional Constitutional: absent: Fever, Chills - EENT Eyes: As Per HPI Nose/Mouth/Throat: As Per HPI - Cardiovascular Cardiovascular: As Per HPI. absent: Leg Edema, Lightheadedness - Respiratory Respiratory: Pain on Inspiration, Pain with Coughing. absent: Cough, Dyspnea - Gastrointestinal Gastrointestinal: As Per HPI, Nausea - Genitourinary Genitourinary: Other (oliguria) - Integumentary Integumentary: UNREMARKABLE - Neurological Neurological: Numbness (toes bl). absent: Dizziness, Headaches Assessment/Plan - Assessment and Plan (Free Text) Assessment: 66F with PMH including CAD with coronary stents, CHF, afib with RVR with a pacemaker, HIV, COPD, CVA, DM on HD, who presented with right sided shoulder and chest pain 4 days S/P fall on right side. Admitted to the ICU for hypotension after cardiac catheterization attempt. Neuro: Reports chronic toe numbness BL, but no other symptoms CNII-XII intact, gross neuromuscular function intact Continue to monitor Cardio: Previous Cath 09/2016: 50% STENOSIS RCA, EF 30% Chest pain persists, did not improve with nitroglycerin last night, improved with morphine. Hypotensive overnight, improved with 250cc NS, Irregular rate and rhythm, systolic murmur, tenderness to palpation over the right costochondral junction ECHO: 14.4% LVEF, no thrombus, mild aortic stenosis, severe mitral regurgitation , severe tricuspid regurgitation, mild pulmonary HTN Trop: 0.08->0.08->0.07 Hold BP meds, administer cardizem IVP for HR>140 sustained, hold for HR<100 sustained Continue to monitor vitals Pulm: Denies SOB or cough No rales, ronchi, or wheezes SaO2 adequate on 2L NC CT chest: L pleural effusion with possible loculations continue to monitor GI: nausea, but no vomiting this am after breakfast, resolved Abdominal exam benign carb controlled renal diet tolerated but with nausea Continue to monitor zofran PRN for nausea Nephro: ESRD Bun 16 down from 23 yesterday, Cr: 6.0 down from 7.8 yesterday Hemodialysis MWF Supplement electrolytes and hemodialysis as directed by electronic organ technician renal diet, nephrovite Endo: Glucose 123 this AM ACHS finger sticks Insulin humalin per low protocol ID: afebrile, Tachycardia History of HIV, loculated pleural effusion on Chest CT Blood cultures pending Continue antimicrobials per ID PPX: protonix, SCD's Given patient's stable status, plan to transfer to telemetry. Agreed upon by cardio and primary. Patient seen and discussed with Dr. Sapna Higgins, PGY1 <Gerry Alejo - Last Filed: 02/22/17 20:18> CCU Objective - Vital Signs / Intake & Output Vital Signs (Last 4 hours): Vital Signs Temp Pulse Resp BP 02/22/17 19:19 98.7 F 109 H 19 125/85 Intake and Output (Last 8hrs): Intake & Output 02/22/17 02/22/17 02/22/17 06:59 14:59 22:59 Intake Total 350 Balance 350 Intake: IV 350 Left External Jugular 350 - Medications Active Medications: Active Medications Generic Name Dose Route Start Last Admin Trade Name Freq PRN Reason Stop Dose Admin Acetaminophen 650 mg 02/21/17 04:13 02/22/17 14:07 Tylenol 325mg Tab PO 650 mg Q4H PRN Administration Pain, Mild (1-3) Atovaquone 750 mg 02/21/17 18:00 02/22/17 17:48 Mepron PO 750 mg BID AIDAN Administration Diltiazem HCl 5 mg 02/21/17 18:38 Cardizem IVP ONCE PRN sustained HR >130 Heparin Sodium (Porcine) 5,000 units 02/21/17 22:00 02/22/17 14:07 Heparin SC 5,000 units Q8 [facility] Administration Protocol Home Med 1 unit 02/23/17 10:00 Home Med PO DAILY AIDAN Home Med 1 unit 02/22/17 18:00 Home Med PO BID AIDAN Home Med 1 unit 02/22/17 18:15 Home Med PO Q4D [facility] Meropenem 500 mg/ Sodium 100 mls @ 100 mls/hr 02/21/17 15:06 02/22/17 08:59 Chloride IVPB 02/28/17 15:07 100 mls/hr Q12 [facility] Administration Protocol Insulin Human Regular 0 units 02/21/17 22:00 02/22/17 17:35 Humulin R Low SC Not Given ACHS [facility] Protocol Ondansetron HCl 4 mg 02/22/17 16:54 Zofran Inj IVP Q6H PRN Nausea/Vomiting Pantoprazole Sodium 40 mg 02/22/17 10:00 02/22/17 08:59 Protonix Inj IVP 40 mg DAILY [facility] Administration Vitamin B Complex/Vit C/Folic Acid 1 tab 02/22/17 10:00 02/22/17 08:59 Nephro-Stone PO 1 tab DAILY [facility] Administration - Patient Studies Lab Studies: Microbiology Studies 02/21/17 16:10 Blood Culture - Preliminary Blood-Venous NO GROWTH AFTER 24 HOURS Lab Studies 02/22/17 02/22/17 02/22/17 Range/Units 16:05 12:01 09:21 WBC (4.5-11.0) 10^3/ul RBC (3.5-6.1) 10^6/uL Hgb (12.0-16.0) gm/dL Hct (36.0-48.0) % MCV (80.0-105.0) fL MCH (25.0-35.0) pg MCHC (31.0-37.0) g/dl RDW (11.5-14.5) % Plt Count (120.0-450.0) 10^3/uL MPV (7.0-11.0) fl Gran % (50.0-68.0) % Lymph % (Auto) (22.0-35.0) % [place] % (Auto) (1.0-6.0) % Eos % (Auto) (1.5-5.0) % Baso % (Auto) (0.0-3.0) % Gran # (1.4-6.5) Lymph # (1.2-3.4) [place] # (0.1-0.6) Eos # (0.0-0.7) Baso # (0.0-2.0) K/mm3 Sodium (132-148) mmol/L Potassium (3.6-5.0) mmol/L Chloride (98-107) mmol/L Carbon Dioxide (21-33) mmol/L Anion Gap (10-20) BUN (7-21) mg/dL Creatinine (0.5-1.4) mg/dL Est GFR ( Amer) Est GFR (Non-Af Amer) POC Glucose (mg/dL) 58 L 103 96 (65-110) mg/dL Random Glucose (70-110) mg/dL Calcium (8.4-10.5) mg/dL Total Bilirubin (0.2-1.3) mg/dL AST (15-39) U/L ALT (7-56) U/L Alkaline Phosphatase (38-133) U/L Troponin I ng/mL Total Protein (5.8-8.3) g/dL Albumin (3.0-4.8) g/dL Globulin gm/dL Albumin/Globulin Ratio (1.1-1.8) 02/22/17 02/22/17 02/22/17 Range/Units 08:14 07:30 07:12 WBC (4.5-11.0) 10^3/ul RBC (3.5-6.1) 10^6/uL Hgb (12.0-16.0) gm/dL Hct (36.0-48.0) % MCV (80.0-105.0) fL MCH (25.0-35.0) pg MCHC (31.0-37.0) g/dl RDW (11.5-14.5) % Plt Count (120.0-450.0) 10^3/uL MPV (7.0-11.0) fl Gran % (50.0-68.0) % Lymph % (Auto) (22.0-35.0) % [place] % (Auto) (1.0-6.0) % Eos % (Auto) (1.5-5.0) % Baso % (Auto) (0.0-3.0) % Gran # (1.4-6.5) Lymph # (1.2-3.4) [place] # (0.1-0.6) Eos # (0.0-0.7) Baso # (0.0-2.0) K/mm3 Sodium 139 (132-148) mmol/L Potassium 4.3 (3.6-5.0) mmol/L Chloride 99 (98-107) mmol/L Carbon Dioxide 26 (21-33) mmol/L Anion Gap 18 (10-20) BUN 16 (7-21) mg/dL Creatinine 6.0 H (0.5-1.4) mg/dL Est GFR ( Amer) 8 Est GFR (Non-Af Amer) 7 POC Glucose (mg/dL) 60 L 45 L (65-110) mg/dL Random Glucose 75 (70-110) mg/dL Calcium 7.3 L (8.4-10.5) mg/dL Total Bilirubin 1.4 H (0.2-1.3) mg/dL AST 36 (15-39) U/L ALT 14 (7-56) U/L Alkaline Phosphatase 123 (38-133) U/L Troponin I ng/mL Total Protein 9.2 H (5.8-8.3) g/dL Albumin 3.4 (3.0-4.8) g/dL Globulin 5.7 gm/dL Albumin/Globulin Ratio 0.6 L (1.1-1.8) 02/22/17 02/21/17 02/21/17 Range/Units 06:30 21:56 20:58 WBC 4.0 L D (4.5-11.0) 10^3/ul RBC 4.10 (3.5-6.1) 10^6/uL Hgb 13.2 (12.0-16.0) gm/dL Hct 42.0 (36.0-48.0) % MCV 102.4 (80.0-105.0) fL MCH 32.2 (25.0-35.0) pg MCHC 31.4 (31.0-37.0) g/dl RDW 21.7 H (11.5-14.5) % Plt Count 130 (120.0-450.0) 10^3/uL MPV 11.0 (7.0-11.0) fl Gran % 58.9 (50.0-68.0) % Lymph % (Auto) 27.9 (22.0-35.0) % [place] % (Auto) 10.0 H (1.0-6.0) % Eos % (Auto) 2.2 (1.5-5.0) % Baso % (Auto) 1.0 (0.0-3.0) % Gran # 2.36 (1.4-6.5) Lymph # 1.1 L (1.2-3.4) [place] # 0.4 (0.1-0.6) Eos # 0.1 (0.0-0.7) Baso # 0.04 (0.0-2.0) K/mm3 Sodium (132-148) mmol/L Potassium (3.6-5.0) mmol/L Chloride (98-107) mmol/L Carbon Dioxide (21-33) mmol/L Anion Gap (10-20) BUN (7-21) mg/dL Creatinine (0.5-1.4) mg/dL Est GFR ( Amer) Est GFR (Non-Af Amer) POC Glucose (mg/dL) 74 (65-110) mg/dL Random Glucose (70-110) mg/dL Calcium (8.4-10.5) mg/dL Total Bilirubin (0.2-1.3) mg/dL AST (15-39) U/L ALT (7-56) U/L Alkaline Phosphatase (38-133) U/L Troponin I 0.07 ng/mL Total Protein (5.8-8.3) g/dL Albumin (3.0-4.8) g/dL Globulin gm/dL Albumin/Globulin Ratio (1.1-1.8) 05/15/17 Range/Units 11:08 WBC (4.5-11.0) 10^3/ul RBC (3.5-6.1) 10^6/uL Hgb (12.0-16.0) gm/dL Hct (36.0-48.0) % MCV (80.0-105.0) fL MCH (25.0-35.0) pg MCHC (31.0-37.0) g/dl RDW (11.5-14.5) % Plt Count (120.0-450.0) 10^3/uL MPV (7.0-11.0) fl Gran % (50.0-68.0) % Lymph % (Auto) (22.0-35.0) % [place] % (Auto) (1.0-6.0) % Eos % (Auto) (1.5-5.0) % Baso % (Auto) (0.0-3.0) % Gran # (1.4-6.5) Lymph # (1.2-3.4) [place] # (0.1-0.6) Eos # (0.0-0.7) Baso # (0.0-2.0) K/mm3 Sodium (132-148) mmol/L Potassium (3.6-5.0) mmol/L Chloride (98-107) mmol/L Carbon Dioxide (21-33) mmol/L Anion Gap (10-20) BUN (7-21) mg/dL Creatinine (0.5-1.4) mg/dL Est GFR ( Amer) Est GFR (Non-Af Amer) POC Glucose (mg/dL) 93 (65-110) mg/dL Random Glucose (70-110) mg/dL Calcium (8.4-10.5) mg/dL Total Bilirubin (0.2-1.3) mg/dL AST (15-39) U/L ALT (7-56) U/L Alkaline Phosphatase (38-133) U/L Troponin I ng/mL Total Protein (5.8-8.3) g/dL Albumin (3.0-4.8) g/dL Globulin gm/dL Albumin/Globulin Ratio (1.1-1.8) Laboratory Results - last 24 hr 02/21/17 02/21/17 02/21/17 11:08 20:58 21:56 WBC RBC Hgb Hct MCV MCH MCHC RDW Plt Count MPV Gran % Lymph % (Auto) [place] % (Auto) Eos % (Auto) Baso % (Auto) Gran # Lymph # [place] # Eos # Baso # Sodium Potassium Chloride Carbon Dioxide Anion Gap BUN Creatinine Est GFR ( Amer) Est GFR (Non-Af Amer) POC Glucose (mg/dL) 93 74 Random Glucose Calcium Total Bilirubin AST ALT Alkaline Phosphatase Troponin I 0.07 Total Protein Albumin Globulin Albumin/Globulin Ratio 02/22/17 02/22/17 02/22/17 06:30 07:12 07:30 WBC 4.0 L D RBC 4.10 Hgb 13.2 Hct 42.0 MCV 102.4 MCH 32.2 MCHC 31.4 RDW 21.7 H Plt Count 130 MPV 11.0 Gran % 58.9 Lymph % (Auto) 27.9 [place] % (Auto) 10.0 H Eos % (Auto) 2.2 Baso % (Auto) 1.0 Gran # 2.36 Lymph # 1.1 L [place] # 0.4 Eos # 0.1 Baso # 0.04 Sodium 139 Potassium 4.3 Chloride 99 Carbon Dioxide 26 Anion Gap 18 BUN 16 Creatinine 6.0 H Est GFR ( Amer) 8 Est GFR (Non-Af Amer) 7 POC Glucose (mg/dL) 45 L Random Glucose 75 Calcium 7.3 L Total Bilirubin 1.4 H AST 36 ALT 14 Alkaline Phosphatase 123 Troponin I Total Protein 9.2 H Albumin 3.4 Globulin 5.7 Albumin/Globulin Ratio 0.6 L 02/22/17 02/22/17 02/22/17 08:14 09:21 12:01 WBC RBC Hgb Hct MCV MCH MCHC RDW Plt Count MPV Gran % Lymph % (Auto) [place] % (Auto) Eos % (Auto) Baso % (Auto) Gran # Lymph # [place] # Eos # Baso # Sodium Potassium Chloride Carbon Dioxide Anion Gap BUN Creatinine Est GFR ( Amer) Est GFR (Non-Af Amer) POC Glucose (mg/dL) 60 L 96 103 Random Glucose Calcium Total Bilirubin AST ALT Alkaline Phosphatase Troponin I Total Protein Albumin Globulin Albumin/Globulin Ratio 02/22/17 16:05 WBC RBC Hgb Hct MCV MCH MCHC RDW Plt Count MPV Gran % Lymph % (Auto) [place] % (Auto) Eos % (Auto) Baso % (Auto) Gran # Lymph # [place] # Eos # Baso # Sodium Potassium Chloride Carbon Dioxide Anion Gap BUN Creatinine Est GFR ( Amer) Est GFR (Non-Af Amer) POC Glucose (mg/dL) 58 L Random Glucose Calcium Total Bilirubin AST ALT Alkaline Phosphatase Troponin I Total Protein Albumin Globulin Albumin/Globulin Ratio Addendum Addendum: 02/22/17 20:13 patient was seen, examined and discussed with Dr. Higgins. Her note reflects my exam, assessment and plan, except as below. Meds/Labs/ONE reviewed. 66 yo with now resolved cardiogenic shock in the setting of very severe LV systolic dysfunction and CHF syndrome. Off of inotropic support. Ok to downgrade to tele ccm time 40 min
--- NOTE | 2017-02-22 13:26 | PN ---
DATE: 02/22/2017 The patient is without chest pain. She remains lethargic. PHYSICAL EXAMINATION: VITAL SIGNS: Blood pressure varies from 102-82 systolic. NECK: Negative JVD. LUNGS: No rales noted. HEART: Reveals S1, S2. EXTREMITIES: Without edema. LABORATORIES: Hemoglobin is 13.2. Chemistries: Potassium is 4.3. IMPRESSION: 1. Nausea and vomiting which is better. 2. Lethargy. 3. End-stage renal disease. 4. Coronary artery disease. 5. No evidence for non-ST elevation myocardial infarction. PLAN: Given these findings, we will continue her on her present medications. We will begin physical therapy. Lamont Coyle MD cc: [id number] TT: 02/22/2017 13:25:50 Confirmation # [id number] Dictation # [id number]
--- NOTE | 2017-02-22 18:14 | CP.PCM.PN ---
Subjective - Date & Time of Evaluation Date of Evaluation: 02/22/17 Time of Evaluation: 09:20 - Subjective Subjective: Comfortable in bed, less nausea, less weakness, no chest pain currently. Objective - Vital Signs/Intake and Output Vital Signs (last 24 hours): Temp Pulse Resp BP Pulse Ox 97.8 F 108 H 16 82/31 L 97 02/22/17 08:00 02/22/17 14:00 02/22/17 11:08 02/22/17 11:08 02/22/17 11:08 Intake and Output: 02/22/17 02/22/17 06:59 18:59 Intake Total 350 Balance 350 - Medications Medications: Current Medications Acetaminophen (Tylenol 325mg Tab) 650 mg PO Q4H PRN PRN Reason: Pain, Mild (1-3) Last Admin: 02/22/17 14:07 Dose: 650 mg Atovaquone (Mepron) 750 mg PO BID [facility] Last Admin: 02/22/17 17:48 Dose: 750 mg Diltiazem HCl (Cardizem) 5 mg IVP ONCE PRN PRN Reason: sustained HR >130 Heparin Sodium (Porcine) (Heparin) 5,000 units SC Q8 [facility] PRN Reason: Protocol Last Admin: 02/22/17 14:07 Dose: 5,000 units Home Med (Home Med) 1 unit PO DAILY [facility] Home Med (Home Med) 1 unit PO BID [facility] Home Med (Home Med) 1 unit PO Q4D [facility] Meropenem 500 mg/ Sodium (Chloride) 100 mls @ 100 mls/hr IVPB Q12 [facility] PRN Reason: Protocol Stop: 02/28/17 15:07 Last Admin: 02/22/17 08:59 Dose: 100 mls/hr Insulin Human Regular (Humulin R Low) 0 units SC ACHS [facility] PRN Reason: Protocol Last Admin: 02/22/17 17:35 Dose: Not Given Ondansetron HCl (Zofran Inj) 4 mg IVP Q6H PRN PRN Reason: Nausea/Vomiting Pantoprazole Sodium (Protonix Inj) 40 mg IVP DAILY [facility] Last Admin: 02/22/17 08:59 Dose: 40 mg Vitamin B Complex/Vit C/Folic Acid (Nephro-Stone) 1 tab PO DAILY [facility] Last Admin: 02/22/17 08:59 Dose: 1 tab - Labs Labs: 02/22/17 06:30 02/22/17 07:30 PT 15.1 Seconds (9.9-11.8) H 02/21/17 02:25 INR 1.40 (0.93-1.08) H 02/21/17 02:25 APTT 28.7 Seconds (23.7-30.8) 02/21/17 02:25 - Constitutional Appears: Non-toxic, No Acute Distress - Head Exam Head Exam: NORMAL INSPECTION - ENT Exam ENT Exam: Mucous Membranes Moist - Neck Exam Neck Exam: absent: Lymphadenopathy, Meningismus - Respiratory Exam Respiratory Exam: Decreased Breath Sounds - Cardiovascular Exam Cardiovascular Exam: +S1, +S2 - GI/Abdominal Exam GI & Abdominal Exam: Soft. absent: Tenderness Assessment and Plan - Assessment and Plan (Free Text) Plan: Assessment Consider transverse colon colitis, R/O infectious cause, R/O ischemic colitis HIV, non-compliant with antiretroviral therapy (follows Dr. Reeder at [facility] but does not recall latest CD4 count or virus load) Cdiff associated diarrhea, slowly improving history of pancreatitis ESRD on hemodialysis Atrial fibrillation Asthma peripheral vascular disease coronary artery disease S/P cardiac catheterization, S/P AICD placement for cardiomyopathy with low EF cerebrovascular accident Plan continue Merrem pending final blood cx continue ART (patient takes Emtricitabine, Dolutegravir, Edurant) continue Mepron will follow clinically
[2017-02-22] MEDS ORDERED: EMTRICITABINE PO SCH (18:15)
[2017-02-23 06:25] LABS: ADD MANUAL DIFF? NO
[2017-02-23 06:43] LABS: ALB/GLOB RATIO 0.6 (1.1-1.8); BILIRUBIN,TOTAL 1.1 mg/dL (0.2-1.3); POTASSIUM 3.9 mmol/L (3.6-5.0); TOTAL PROTEIN 8.7 g/dL (5.8-8.3)
--- NOTE | 2017-02-23 06:49 | CP.PCM.PN ---
Subjective - Date & Time of Evaluation Date of Evaluation: 02/23/17 Time of Evaluation: 06:48 - Subjective Subjective: Patient was seen at bedside. Nurse Vandana garcia.Holding Lovenox.Has little epistaxis, bleeding in abdominal injection sites. No other complaints. Patient states that she has no blood in stool or urine. Medical record was reviewed. This 66 year old woman was admitted with complaint of chest pain in midsternal region. Has PMH of Atrial fibrillation , CAD, ischemic cardiomyopathy, HTN, COPD, AICD placement, multiple stent placement, HIV , ESRD, exsmoker. Objective - Vital Signs/Intake and Output Vital Signs (last 24 hours): Temp Pulse Resp BP Pulse Ox 97.1 F L 119 H 22 106/73 99 02/23/17 05:42 02/23/17 05:42 02/23/17 05:42 02/23/17 05:42 02/23/17 05:42 Intake and Output: 02/22/17 02/23/17 18:59 06:59 Intake Total 240 Balance 240 - Medications Medications: Current Medications Acetaminophen (Tylenol 325mg Tab) 650 mg PO Q4H PRN PRN Reason: Pain, Mild (1-3) Last Admin: 02/22/17 14:07 Dose: 650 mg Atovaquone (Mepron) 750 mg PO BID [facility] Last Admin: 02/22/17 17:48 Dose: 750 mg Diltiazem HCl (Cardizem) 5 mg IVP ONCE PRN PRN Reason: sustained HR >130 Heparin Sodium (Porcine) (Heparin) 5,000 units SC Q8 [facility] PRN Reason: Protocol Last Admin: 02/23/17 06:47 Dose: Not Given Home Med (Home Med) 1 unit PO DAILY [facility] Home Med (Home Med) 1 unit PO BID [facility] Home Med (Home Med) 1 unit PO Q4D [facility] Meropenem 500 mg/ Sodium (Chloride) 100 mls @ 100 mls/hr IVPB Q12 [facility] PRN Reason: Protocol Stop: 02/28/17 15:07 Last Admin: 02/22/17 22:05 Dose: 100 mls/hr Insulin Human Regular (Humulin R Low) 0 units SC ACHS [facility] PRN Reason: Protocol Last Admin: 02/22/17 22:05 Dose: Not Given Ondansetron HCl (Zofran Inj) 4 mg IVP Q6H PRN PRN Reason: Nausea/Vomiting Pantoprazole Sodium (Protonix Ec Tab) 40 mg PO ACB [facility] Vitamin B Complex/Vit C/Folic Acid (Nephro-Stone) 1 tab PO DAILY [facility] Last Admin: 02/22/17 08:59 Dose: 1 tab - Labs Labs: 02/22/17 06:30 02/22/17 07:30 PT 15.1 Seconds (9.9-11.8) H 02/21/17 02:25 INR 1.40 (0.93-1.08) H 02/21/17 02:25 APTT 28.7 Seconds (23.7-30.8) 02/21/17 02:25 - Constitutional Appears: Well, No Acute Distress - Head Exam Head Exam: ATRAUMATIC, NORMAL INSPECTION, NORMOCEPHALIC - Eye Exam Eye Exam: Normal appearance - ENT Exam ENT Exam: Normal Exam, Normal External Ear Exam Additional comments: No active nasal bleeding noted. - Neck Exam Neck Exam: Normal Inspection - Respiratory Exam Respiratory Exam: NORMAL BREATHING PATTERN - Cardiovascular Exam Cardiovascular Exam: absent: JVD - GI/Abdominal Exam GI & Abdominal Exam: absent: Distended - Rectal Exam Rectal Exam: Deferred - Extremities Exam Extremities Exam: Normal Inspection - Back Exam Back Exam: NORMAL INSPECTION - Neurological Exam Neurological Exam: Alert, Oriented x3 - Skin Skin Exam: Normal Color Assessment and Plan - Assessment and Plan (Free Text) Assessment: Epistaxis. HIV. COPD. HTN. CAD. Plan: Hold lovenox. F/U CBC. Continue present management.
--- NOTE | 2017-02-23 07:17 | CP.PCM.PN ---
<Garret Dickens - Last Filed: 02/23/17 09:51> Subjective - Date & Time of Evaluation Date of Evaluation: 02/23/17 Time of Evaluation: 07:10 - Subjective Subjective: PGy4 GI Fellow Progress Note Patient seen and examined bedside this morning. The patient admits to some issues with epistaxis and bleeding from prior heparin injection sitein abdomen overnight. No other complaints and states she is feeling slightly better today. Pt stating she does not want any more antibiotic therapy. Explained importance of coverage given symptoms and ongoing process. She is more talkative and seems to have more energy today. Did have 2-3 loose BM overnight per nursing. 12 system ROS performed and negative except where stated. Objective - Vital Signs/Intake and Output Vital Signs (last 24 hours): Temp Pulse Resp BP Pulse Ox 97.1 F L 119 H 22 106/73 99 02/23/17 05:42 02/23/17 05:42 02/23/17 05:42 02/23/17 05:42 02/23/17 05:42 Intake and Output: 02/23/17 02/23/17 06:59 18:59 Intake Total 240 Balance 240 - Medications Medications: Current Medications Acetaminophen (Tylenol 325mg Tab) 650 mg PO Q4H PRN PRN Reason: Pain, Mild (1-3) Last Admin: 02/22/17 14:07 Dose: 650 mg Atovaquone (Mepron) 750 mg PO BID [facility] Last Admin: 02/22/17 17:48 Dose: 750 mg Diltiazem HCl (Cardizem) 5 mg IVP ONCE PRN PRN Reason: sustained HR >130 Heparin Sodium (Porcine) (Heparin) 5,000 units SC Q8 [facility] PRN Reason: Protocol Last Admin: 02/23/17 06:47 Dose: Not Given Home Med (Home Med) 1 unit PO DAILY [facility] Home Med (Home Med) 1 unit PO BID [facility] Home Med (Home Med) 1 unit PO Q4D [facility] Meropenem 500 mg/ Sodium (Chloride) 100 mls @ 100 mls/hr IVPB Q12 [facility] PRN Reason: Protocol Stop: 02/28/17 15:07 Last Admin: 02/22/17 22:05 Dose: 100 mls/hr Insulin Human Regular (Humulin R Low) 0 units SC ACHS [facility] PRN Reason: Protocol Last Admin: 02/22/17 22:05 Dose: Not Given Ondansetron HCl (Zofran Inj) 4 mg IVP Q6H PRN PRN Reason: Nausea/Vomiting Pantoprazole Sodium (Protonix Ec Tab) 40 mg PO ACB [facility] Vitamin B Complex/Vit C/Folic Acid (Nephro-Stone) 1 tab PO DAILY [facility] Last Admin: 02/22/17 08:59 Dose: 1 tab - Labs Labs: 02/22/17 06:30 02/23/17 05:15 PT 15.1 Seconds (9.9-11.8) H 02/21/17 02:25 INR 1.40 (0.93-1.08) H 02/21/17 02:25 APTT 28.7 Seconds (23.7-30.8) 02/21/17 02:25 - Constitutional Appears: Non-toxic, No Acute Distress - Eye Exam Eye Exam: EOMI, PERRL - ENT Exam ENT Exam: Mucous Membranes Dry Additional comments: epistaxis noted - Respiratory Exam Respiratory Exam: Clear to Ausculation Bilateral. absent: Rales, Rhonchi, Wheezes - Cardiovascular Exam Cardiovascular Exam: Irregular Rhythm, +S1, +S2, Murmur - GI/Abdominal Exam GI & Abdominal Exam: Soft, Normal Bowel Sounds. absent: Distended, Firm, Guarding, Rigid, Tenderness, Organomegaly - Extremities Exam Extremities Exam: Normal Inspection. absent: Pedal Edema - Neurological Exam Neurological Exam: Alert, Awake, Oriented x3 - Psychiatric Exam Psychiatric exam: Normal Affect, Normal Mood - Skin Skin Exam: Dry, Warm Assessment and Plan - Assessment and Plan (Free Text) Assessment: Patient is a 66yo female with PMHx including HIV on HAART, CHF (EF30%), atrial fibrillation on coumadin, CAD s/p PCI with FEDE to RCA, COPD, ESRD on HD MWF who presented to the ED following a fall at home. Our service has been consulted for finding of transverse colitis. -Transverse colitis -HIV on HAART Plan: -Send stool for Culture, C diff, Isospora/Cyclospora and Cryptosporidium -Unknown CD4 count -Recommend continuation of IV antibiotic per ID recs -Would benefit from outpatient colonoscopy 6-8 weeks from resolution of symptoms <Milan Thacker MD - Last Filed: 02/23/17 16:19> Objective - Vital Signs/Intake and Output Vital Signs (last 24 hours): Temp Pulse Resp BP Pulse Ox 98 F 80 18 115/64 98 02/23/17 12:00 02/23/17 12:00 02/23/17 12:00 02/23/17 12:00 02/23/17 09:00 Intake and Output: 02/23/17 02/23/17 06:59 18:59 Intake Total 240 Balance 240 - Medications Medications: Current Medications Acetaminophen (Tylenol 325mg Tab) 650 mg PO Q4H PRN PRN Reason: Pain, Mild (1-3) Last Admin: 02/22/17 14:07 Dose: 650 mg Atovaquone (Mepron) 750 mg PO BID [facility] Last Admin: 02/23/17 10:11 Dose: 750 mg Diltiazem HCl (Cardizem) 5 mg IVP ONCE PRN PRN Reason: sustained HR >130 Diltiazem HCl (Cardizem) 60 mg PO TID [facility] Heparin Sodium (Porcine) (Heparin) 5,000 units SC Q12 [facility] PRN Reason: Protocol Last Admin: 02/23/17 10:10 Dose: Not Given Home Med (Home Med) 1 unit PO DAILY [facility] Last Admin: 02/23/17 10:11 Dose: Not Given Home Med (Home Med) 1 unit PO BID [facility] Last Admin: 02/23/17 10:10 Dose: Not Given Home Med (Home Med) 1 unit PO Q4D [facility] Meropenem 500 mg/ Sodium (Chloride) 100 mls @ 100 mls/hr IVPB Q12 [facility] PRN Reason: Protocol Stop: 02/28/17 15:07 Last Admin: 02/23/17 10:47 Dose: 100 mls/hr Insulin Human Regular (Humulin R Low) 0 units SC ACHS [facility] PRN Reason: Protocol Last Admin: 02/23/17 11:42 Dose: Not Given Ondansetron HCl (Zofran Inj) 4 mg IVP Q6H PRN PRN Reason: Nausea/Vomiting Pantoprazole Sodium (Protonix Ec Tab) 40 mg PO ACB [facility] Last Admin: 02/23/17 08:08 Dose: 40 mg Vitamin B Complex/Vit C/Folic Acid (Nephro-Stone) 1 tab PO DAILY [facility] Last Admin: 02/23/17 10:11 Dose: 1 tab Zolpidem Tartrate (Ambien) 5 mg PO HS PRN; Protocol PRN Reason: Insomnia - Labs Labs: 02/23/17 15:30 02/23/17 15:30 PT 15.1 Seconds (9.9-11.8) H 02/21/17 02:25 INR 1.40 (0.93-1.08) H 02/21/17 02:25 APTT 28.7 Seconds (23.7-30.8) 02/21/17 02:25 Attending/Attestation - Attestation I have personally seen and examined this patient.: Yes I have fully participated in the care of the patient.: Yes I have reviewed all pertinent clinical information, including history, physical exam and plan: Yes Notes (Text): 02/23/17 16:17 Patient seen with GI fellow in am on rounds. This is a 66 yo female with PMHx including HIV on HAART, CHF (EF30%), atrial fibrillation on coumadin, CAD s/p PCI with FEDE to RCA, COPD, ESRD on HD who presented to the ED following a fall at home. GI service has been consulted for incidental finding of transverse colitis. Denies loose stools today or abdominal cramps. Stool infectious work up pending. Continue antibiotics. Immunocompromised- will send HSV, CMV on stool studies
[2017-02-23] MEDS: Insulin Reg-LOW-Coverage SC SCH ×4 (07:52→22:34)
[2017-02-23 08:06] LABS: BASO # 0.03 K/mm3 (0.0-2.0); BASO % 0.9 % (0.0-3.0); EOS # 0.1 (0.0-0.7); EOS % 3.2 % (1.5-5.0); GRAN # 1.91 (1.4-6.5); GRAN % 56.4 % (50.0-68.0); HEMATOCRIT 41.2 % (36.0-48.0); LYMPH # 0.9 (1.2-3.4); LYMPH % 26.8 % (22.0-35.0); MEAN CELL VOLUME 101.2 fL (80.0-105.0); MEAN CORPUSCULAR HEMOGLOBIN 32.2 pg (25.0-35.0); MEAN CORPUSCULAR HGB CONC 31.8 g/dl (31.0-37.0); MEAN PLATELET VOLUME 10.9 fl (7.0-11.0); MONO # 0.4 (0.1-0.6); MONO % 12.7 % (1.0-6.0); PLATELET COUNT 99 10^3/uL (120.0-450.0); RED CELL DISTRIBUTION WIDTH 21.6 % (11.5-14.5); WHITE BLOOD COUNT 3.4 10^3/ul (4.5-11.0)
[2017-02-23] MEDS: Pantoprazole 40 mg EC Tab PO SCH (08:08)
--- NOTE | 2017-02-23 09:06 | PN ---
DATE: 02/23/2017 I know the patient very well. She is comfortable sitting up in bed. She is very weak. She also had a nosebleed. She does not want the heparin anymore. I decreased it from q. 8 to q. 12. The nosebleeds have stopped right now. She is very weak. She wants to go to [facility] for subacute rehab. She is eating okay, does not like the food, and she cannot sleep. I put her on Ambien. MEDICATIONS: She is on Cardizem, heparin, insulin coverage, Mepron, Merrem, vitamins, Protonix, Tylenol, and Zofran. PHYSICAL EXAMINATION: VITAL SIGNS: Temp 97.1. Pulse is still 119, 106/73 blood pressure, 22 respiratory rate, 99% O2 sat on room air. HEENT: Head is atraumatic, normocephalic. 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 It is better now. Throat is clear. HEART: Regular rate. LUNGS: Decreased breath sounds, but clear. ABDOMEN: Soft and positive bowel sounds. EXTREMITIES: Weak. LABORATORY DATA: She has a 141 sodium, potassium 3.9, BUN creatinine 7.6, status post dialysis. Last blood sugar was 53. Calcium is 7. Total bili is 1.1. AST is 37. ALT is 19. Alk phos 130. Total protein is 8.7. She has a 4.0 WBC, 13.2 hemoglobin, 42 hematocrit with 130 platelets. INR is 1.4. She is being seen by GI, infectious disease, cardiology, design tech, and renal. Her blood pressure again was 106/73, but the pulse is elevated. I will talk to cardiology about putting on some low-dose Cardizem. We will continue aggressive treatment and care. She has colitis weakness, fall, pneumonia, HIV, AFib, end-stage renal disease. Hopefully, we will get her to [facility] soon to finish treatment and physical therapy. Yossi Marcus DO cc: [id number] TT: 02/23/2017 09:06:16 Confirmation # [id number] Dictation # [id number] [facility]
[2017-02-23] MEDS: ETRAVIRINE PO SCH ×2 (10:10→19:32)
[2017-02-23] MEDS: Atovaquone 750 mg/5 ml Susp UD PO SCH ×2 (10:11→18:42)
[2017-02-23] MEDS: Multivitamin Vitamin B Complex (Nephro-Vite) Tab PO SCH (10:11)
[2017-02-23] MEDS: DOLUTEGRAVIR PO SCH (10:11)
[2017-02-23] MEDS: Meropenem 500 MG in Sodium Chloride 0.9% 100 ML IVPB SCH ×2 (10:47→22:34)
--- NOTE | 2017-02-23 11:10 | PN ---
DATE: 02/23/2017 The patient is much more awake and alert. Her nausea is resolved. PHYSICAL EXAMINATION: VITAL SIGNS: Blood pressure is 106/73, heart rate is atrial fibrillation at 110. NECK: Negative JVD. LUNGS: Without rales. HEART: Reveals S1, S2. EXTREMITIES: Without edema. LABORATORY DATA: Hemoglobin of 13.1. Chemistries: The glucose varies from 50-113 with a BUN and cr eatinine of 23 and 7.6. IMPRESSION: 1. End-stage renal disease. 2. Resolution of nausea. 3. Coronary artery disease. 4. End-stage renal disease. 5. Coronary artery disease. 6. Atrial fibrillation. PLAN: Given these findings, we will add p.o. Cardizem to help control her heart rate. The patient i s doing much better. Hemodynamically, the patient is stable. We will discontinue telemetry today. Lamont Coyle MD cc: [phone] TT: 02/23/2017 11:09:50 Confirmation # [id number] Dictation # [id number] alex
--- NOTE | 2017-02-23 15:04 | CP.PCM.PN ---
Subjective - Date & Time of Evaluation Date of Evaluation: 02/23/17 Time of Evaluation: 15:03 - Subjective Subjective: Follow up Nephrology Consultation: Assessment/Plan: End stage renal disease on hemodialysis (MWF) via AVF: plan for dialysis today. Nephrovite 1 tab/day. Anemia: PRBC as needed. last Hb 13.2 hence ADI not indicated Hyperphosphatemia: continue with home meds Hypertension control with meds as ordered. Patient not on RAAS felicity as BP on low side. severe systolic CHF and CAD management as per primary team/cardiology Glycemic control, Dialysis consistent diet Further work up/management as per primary team Dose meds/antibiotics (if needed) for ESRD status. Avoid fleets enema/magnesium based laxatives. Thanks for allowing me to participate in care of your patient. Will follow patient with you. Please call if any Qs Dr Adan Duong Office: [phone] Subjective: no overnight events. denies CP/SOB/pain abdomen Physical Examination: General Appearance: Comfortable, in no acute respiratory distress, co-operative . Vitals reviewed and noted as below Lungs: Normal respiratory rate/effort. Breath sounds bilateral equal and clear Heart: Improved rate. s1s2 normal. No rub or gallop. SM+ at LSB Extremities: no edema. No varicose veins Neurological: Patient is awake and oriented to person, place and time. No focal deficit. Strength bilateral appropriate and equal Skin: dry. Normal turgor. No rash. Palpitation: Normal elasticity for age. extremities somewhat cold to touch Abdomen: Abdomen is soft. Bowel sounds +. There is no abdominal tenderness, no guarding/rigidity or organomegaly : kidney or bladder not palpable Access: RUE AVF with thrill and bruit Labs/imaging reviewed. Past medical history, past surgical history, family history, social history, allergy reviewed Objective - Vital Signs/Intake and Output Vital Signs (last 24 hours): Temp Pulse Resp BP Pulse Ox 98 F 80 18 115/64 98 02/23/17 12:00 02/23/17 12:00 02/23/17 12:00 02/23/17 12:00 02/23/17 09:00 Intake and Output: 02/23/17 02/23/17 06:59 18:59 Intake Total 240 Balance 240 - Medications Medications: Current Medications Acetaminophen (Tylenol 325mg Tab) 650 mg PO Q4H PRN PRN Reason: Pain, Mild (1-3) Last Admin: 02/22/17 14:07 Dose: 650 mg Atovaquone (Mepron) 750 mg PO BID [facility] Last Admin: 02/23/17 10:11 Dose: 750 mg Diltiazem HCl (Cardizem) 5 mg IVP ONCE PRN PRN Reason: sustained HR >130 Diltiazem HCl (Cardizem) 60 mg PO TID [facility] Heparin Sodium (Porcine) (Heparin) 5,000 units SC Q12 [facility] PRN Reason: Protocol Last Admin: 02/23/17 10:10 Dose: Not Given Home Med (Home Med) 1 unit PO DAILY [facility] Last Admin: 02/23/17 10:11 Dose: Not Given Home Med (Home Med) 1 unit PO BID [facility] Last Admin: 02/23/17 10:10 Dose: Not Given Home Med (Home Med) 1 unit PO Q4D [facility] Meropenem 500 mg/ Sodium (Chloride) 100 mls @ 100 mls/hr IVPB Q12 [facility] PRN Reason: Protocol Stop: 02/28/17 15:07 Last Admin: 02/23/17 10:47 Dose: 100 mls/hr Insulin Human Regular (Humulin R Low) 0 units SC ACHS [facility] PRN Reason: Protocol Last Admin: 02/23/17 11:42 Dose: Not Given Ondansetron HCl (Zofran Inj) 4 mg IVP Q6H PRN PRN Reason: Nausea/Vomiting Pantoprazole Sodium (Protonix Ec Tab) 40 mg PO ACB [facility] Last Admin: 02/23/17 08:08 Dose: 40 mg Vitamin B Complex/Vit C/Folic Acid (Nephro-Stone) 1 tab PO DAILY [facility] Last Admin: 02/23/17 10:11 Dose: 1 tab Zolpidem Tartrate (Ambien) 5 mg PO HS PRN; Protocol PRN Reason: Insomnia - Labs Labs: 02/23/17 05:15 02/23/17 05:15 PT 15.1 Seconds (9.9-11.8) H 02/21/17 02:25 INR 1.40 (0.93-1.08) H 02/21/17 02:25 APTT 28.7 Seconds (23.7-30.8) 02/21/17 02:25
[2017-02-23 15:31] LABS: ADD MANUAL DIFF? NO
[2017-02-23 15:34] LABS: BASO # 0.03 K/mm3 (0.0-2.0); BASO % 0.9 % (0.0-3.0); EOS # 0.1 (0.0-0.7); EOS % 3.7 % (1.5-5.0); GRAN # 1.91 (1.4-6.5); GRAN % 58.4 % (50.0-68.0); LYMPH # 0.9 (1.2-3.4); LYMPH % 26.9 % (22.0-35.0); MEAN CELL VOLUME 99.7 fL (80.0-105.0); MEAN CORPUSCULAR HEMOGLOBIN 32.3 pg (25.0-35.0); MEAN CORPUSCULAR HGB CONC 32.4 g/dl (31.0-37.0); MEAN PLATELET VOLUME 10.8 fl (7.0-11.0); MONO # 0.3 (0.1-0.6); MONO % 10.1 % (1.0-6.0); PLATELET COUNT 122 10^3/uL (120.0-450.0); RED CELL DISTRIBUTION WIDTH 21.3 % (11.5-14.5); WHITE BLOOD COUNT 3.3 10^3/ul (4.5-11.0)
[2017-02-23 16:00] LABS: ALB/GLOB RATIO 0.6 (1.1-1.8); CALCIUM 7.1 mg/dL (8.4-10.5); MAGNESIUM 2.3 mg/dL (1.7-2.2); PHOSPHOROUS 4.1 mg/dL (2.5-4.5); POTASSIUM 3.6 mmol/L (3.6-5.0); TOTAL PROTEIN 8.6 g/dL (5.8-8.3)
--- NOTE | 2017-02-23 16:43 | CARD ---
APPROVED REPORT EKG Measurement Heart [id number] <Conclusion> Atrial fibrillation with rapid ventricular response Left axis deviation Nonspecific intraventricular block Lateral infarct, age undetermined Abnormal ECG
--- NOTE | 2017-02-23 22:40 | CP.PCM.PN ---
Subjective - Date & Time of Evaluation Date of Evaluation: 02/23/17 Time of Evaluation: 11:50 - Subjective Subjective: Comfortable, afebrile, not in distress. Objective - Vital Signs/Intake and Output Vital Signs (last 24 hours): Temp Pulse Resp BP Pulse Ox 97.6 F 61 18 113/71 95 02/23/17 16:00 02/23/17 18:42 02/23/17 16:00 02/23/17 18:42 02/23/17 16:00 Intake and Output: 02/23/17 02/24/17 18:59 06:59 Intake Total 420 Balance 420 - Medications Medications: Current Medications Acetaminophen (Tylenol 325mg Tab) 650 mg PO Q4H PRN PRN Reason: Pain, Mild (1-3) Last Admin: 02/22/17 14:07 Dose: 650 mg Atovaquone (Mepron) 750 mg PO BID [facility] Last Admin: 02/23/17 18:42 Dose: 750 mg Diltiazem HCl (Cardizem) 5 mg IVP ONCE PRN PRN Reason: sustained HR >130 Diltiazem HCl (Cardizem) 60 mg PO TID [facility] Last Admin: 02/23/17 18:42 Dose: 60 mg Heparin Sodium (Porcine) (Heparin) 5,000 units SC Q12 [facility] PRN Reason: Protocol Last Admin: 02/23/17 10:10 Dose: Not Given Home Med (Home Med) 1 unit PO DAILY [facility] Last Admin: 02/23/17 10:11 Dose: Not Given Home Med (Home Med) 1 unit PO BID [facility] Last Admin: 02/23/17 19:32 Dose: Not Given Home Med (Home Med) 1 unit PO Q4D [facility] Meropenem 500 mg/ Sodium (Chloride) 100 mls @ 100 mls/hr IVPB Q12 [facility] PRN Reason: Protocol Stop: 02/28/17 15:07 Last Admin: 02/23/17 10:47 Dose: 100 mls/hr Insulin Human Regular (Humulin R Low) 0 units SC ACHS [facility] PRN Reason: Protocol Last Admin: 02/23/17 18:33 Dose: Not Given Ondansetron HCl (Zofran Inj) 4 mg IVP Q6H PRN PRN Reason: Nausea/Vomiting Last Admin: 02/23/17 18:48 Dose: 4 mg Pantoprazole Sodium (Protonix Ec Tab) 40 mg PO ACB [facility] Last Admin: 02/23/17 08:08 Dose: 40 mg Vitamin B Complex/Vit C/Folic Acid (Nephro-Stone) 1 tab PO DAILY [facility] Last Admin: 02/23/17 10:11 Dose: 1 tab Zolpidem Tartrate (Ambien) 5 mg PO HS PRN; Protocol PRN Reason: Insomnia - Labs Labs: 02/23/17 15:30 02/23/17 15:30 PT 15.1 Seconds (9.9-11.8) H 02/21/17 02:25 INR 1.40 (0.93-1.08) H 02/21/17 02:25 APTT 28.7 Seconds (23.7-30.8) 02/21/17 02:25 - Constitutional Appears: Non-toxic, No Acute Distress - Head Exam Head Exam: NORMAL INSPECTION - Respiratory Exam Respiratory Exam: Decreased Breath Sounds - Cardiovascular Exam Cardiovascular Exam: +S1, +S2 - GI/Abdominal Exam GI & Abdominal Exam: Soft. absent: Tenderness Assessment and Plan - Assessment and Plan (Free Text) Plan: Assessment Consider transverse colon colitis, R/O infectious cause, R/O ischemic colitis HIV, non-compliant with antiretroviral therapy (follows Dr. Reeder at [facility] but does not recall latest CD4 count or virus load) Cdiff associated diarrhea, slowly improving history of pancreatitis ESRD on hemodialysis Atrial fibrillation Asthma peripheral vascular disease coronary artery disease S/P cardiac catheterization, S/P AICD placement for cardiomyopathy with low EF cerebrovascular accident Plan continue Merrem day 3; blood cx are negative continue ART (patient takes Emtricitabine, Dolutegravir, Edurant) continue Mepron will continue to follow clinically
--- NOTE | 2017-02-24 22:03 | PN ---
DATE: 02/24/2017 I saw the patient earlier this morning in [facility], but the computers were down, I was not able to dictate until now. She was resting in bed, comfortable. She wants to go to [facility] for physical therapy. She feels that she needs it, she feels weak, but she is improving. She is eating a little bit too. PHYSICAL EXAMINATION: VITAL SIGNS: She has a 97.6 temp, 61 pulse, 113/71 blood pressure, 18 respiratory rate, 95% O2 sat on room air. HEENT: Head is atraumatic, normocephalic. Throat is dry. NECK: Supple. HEART: Regular rate. LUNGS: Decreased breath sounds but clear. ABDOMEN: Soft, nontender, positive bowel sounds. She has lost a lot of weight. EXTREMITIES: Trace edema. MEDICATIONS: She is currently on Ambien, Cardizem, heparin, insulin coverage, Mepron, Merrem IV, vitamins, Protonix, Tylenol, and Zofran. LABORATORY DATA: She has a 138 sodium, potassium 3.6, BUN 25, creatinine 8. Sugar is 123, calcium 7.1, phosphorus 4.1, AST is 40, ALT is 18, alk phos 125. White count 3.3, hemoglobin 12.3, hematocrit 38, platelets 122. She is being seen by infectious disease, renal, cardio, GI. Overall, she is improving nicely. I am trying to get her in to [facility] for some rehabilitation before she will go home. We will see if case management can put that together for us. Subacute rehab was recommended by physical therapy. We will continue with aggressive treatment and care. Hopefully she will go to [facility] tomorrow. She is here for multiple reasons; colitis, fall, human immunodeficiency virus, end-stage renal disease, atrial fibrillation, Yossi Marcus DO cc: [id number] TT: 02/24/2017 22:03:02 Confirmation # [id number] Dictation # [id number] MTDD
[2017-02-24] MEDS: Meropenem 500 MG in Sodium Chloride 0.9% 100 ML IVPB SCH (22:13)
[2017-02-24] MEDS: Insulin Reg-LOW-Coverage SC SCH (22:30)
--- NOTE | 2017-02-24 23:39 | CP.PCM.PN ---
Subjective - Date & Time of Evaluation Date of Evaluation: 02/24/17 Time of Evaluation: 23:37 - Subjective Subjective: Patient was seen at bedside for nausea. Has no other complaints. Denies vomiting, chest pain, sweating , palpitation. 100/63,98 91 19/min. Medical record was reviewed. This 66 year old woman was admitted with lethargy after a fall in shower 4 days prior to admission. Has PMH of CHF, atrial fibrillation, HIV , CAD with Stents, pacemaker insertion , anemia, COPD, CVA ,asthma, DM. Objective - Vital Signs/Intake and Output Vital Signs (last 24 hours): Temp Pulse Resp BP Pulse Ox 97.6 F 115 H 19 129/69 98 02/24/17 16:00 02/24/17 16:00 02/24/17 16:00 02/24/17 16:00 02/24/17 16:00 - Medications Medications: Current Medications Acetaminophen (Tylenol 325mg Tab) 650 mg PO Q4H PRN PRN Reason: Pain, Mild (1-3) Last Admin: 02/22/17 14:07 Dose: 650 mg Atovaquone (Mepron) 750 mg PO BID [facility] Last Admin: 02/23/17 18:42 Dose: 750 mg Diltiazem HCl (Cardizem) 5 mg IVP ONCE PRN PRN Reason: sustained HR >130 Diltiazem HCl (Cardizem) 60 mg PO TID [facility] Last Admin: 02/23/17 18:42 Dose: 60 mg Heparin Sodium (Porcine) (Heparin) 5,000 units SC Q12 [facility] PRN Reason: Protocol Last Admin: 02/24/17 22:13 Dose: Not Given Home Med (Home Med) 1 unit PO DAILY [facility] Last Admin: 02/23/17 10:11 Dose: Not Given Home Med (Home Med) 1 unit PO BID [facility] Last Admin: 02/23/17 19:32 Dose: Not Given Home Med (Home Med) 1 unit PO Q4D [facility] Meropenem 500 mg/ Sodium (Chloride) 100 mls @ 100 mls/hr IVPB Q12 [facility] PRN Reason: Protocol Stop: 02/28/17 15:07 Last Admin: 02/24/17 22:13 Dose: 100 mls/hr Insulin Human Regular (Humulin R Low) 0 units SC ACHS [facility] PRN Reason: Protocol Last Admin: 02/23/17 22:34 Dose: Not Given Ondansetron HCl (Zofran Inj) 4 mg IVP Q6H PRN PRN Reason: Nausea/Vomiting Last Admin: 02/24/17 21:04 Dose: 4 mg Pantoprazole Sodium (Protonix Ec Tab) 40 mg PO ACB [facility] Last Admin: 02/23/17 08:08 Dose: 40 mg Vitamin B Complex/Vit C/Folic Acid (Nephro-Stone) 1 tab PO DAILY [facility] Last Admin: 02/23/17 10:11 Dose: 1 tab Zolpidem Tartrate (Ambien) 5 mg PO HS PRN; Protocol PRN Reason: Insomnia Last Admin: 02/23/17 22:32 Dose: 5 mg - Labs Labs: 02/23/17 15:30 02/23/17 15:30 PT 15.1 Seconds (9.9-11.8) H 02/21/17 02:25 INR 1.40 (0.93-1.08) H 02/21/17 02:25 APTT 28.7 Seconds (23.7-30.8) 02/21/17 02:25 - Constitutional Appears: Well, No Acute Distress - Head Exam Head Exam: ATRAUMATIC, NORMAL INSPECTION, NORMOCEPHALIC - Eye Exam Eye Exam: Normal appearance - ENT Exam ENT Exam: Normal External Ear Exam - Neck Exam Neck Exam: Normal Inspection - Respiratory Exam Respiratory Exam: NORMAL BREATHING PATTERN - Cardiovascular Exam Cardiovascular Exam: absent: JVD - GI/Abdominal Exam GI & Abdominal Exam: absent: Distended - Rectal Exam Rectal Exam: Deferred - Extremities Exam Extremities Exam: Normal Inspection - Back Exam Back Exam: NORMAL INSPECTION - Neurological Exam Neurological Exam: Alert, Oriented x3 - Psychiatric Exam Psychiatric exam: Normal Affect, Normal Mood - Skin Skin Exam: Normal Color Assessment and Plan - Assessment and Plan (Free Text) Assessment: Nausea. COPD/Asthma. Anemia. Lethargy. CHF. Atrial fibrillation. HIV. Plan: Zofran 4 mg IV stat. Continue present management.
[2017-02-25 07:13] LABS: HEMATOCRIT 32.8 % (36.0-48.0); MEAN CELL VOLUME 91.9 fL (80.0-105.0); MEAN CORPUSCULAR HEMOGLOBIN 29.1 pg (25.0-35.0); MEAN CORPUSCULAR HGB CONC 31.7 g/dl (31.0-37.0); MEAN PLATELET VOLUME 9.9 fl (7.0-11.0); WHITE BLOOD COUNT 5.5 10^3/ul (4.5-11.0)
--- NOTE | 2017-02-25 07:57 | CP.PCM.PN ---
<Garret Dickens - Last Filed: 02/25/17 10:23> Subjective - Date & Time of Evaluation Date of Evaluation: 02/25/17 Time of Evaluation: 07:05 - Subjective Subjective: PGY4 GI Fellow Progress Note Patient seen and examined bedside this morning. The patient is out of bed and sitting in a chair. States she is feeling much better. Continues to have 2-3, no formed but soft stool per day. No abdominal pain. Having difficulty sleeping. 12 system ROS performed and negative except where stated. Objective - Vital Signs/Intake and Output Vital Signs (last 24 hours): Temp Pulse Resp BP Pulse Ox 97.6 F 91 H 19 100/63 98 02/24/17 16:00 02/24/17 22:55 02/24/17 22:55 02/24/17 22:55 02/24/17 22:55 Intake and Output: 02/25/17 02/25/17 06:59 18:59 Intake Total 100 Output Total 0 Balance 100 - Medications Medications: Current Medications Acetaminophen (Tylenol 325mg Tab) 650 mg PO Q4H PRN PRN Reason: Pain, Mild (1-3) Last Admin: 02/22/17 14:07 Dose: 650 mg Atovaquone (Mepron) 750 mg PO BID [facility] Last Admin: 02/23/17 18:42 Dose: 750 mg Diltiazem HCl (Cardizem) 5 mg IVP ONCE PRN PRN Reason: sustained HR >130 Diltiazem HCl (Cardizem) 60 mg PO TID [facility] Last Admin: 02/23/17 18:42 Dose: 60 mg Heparin Sodium (Porcine) (Heparin) 5,000 units SC Q12 [facility] PRN Reason: Protocol Last Admin: 02/24/17 22:13 Dose: Not Given Home Med (Home Med) 1 unit PO DAILY [facility] Last Admin: 02/23/17 10:11 Dose: Not Given Home Med (Home Med) 1 unit PO BID [facility] Last Admin: 02/23/17 19:32 Dose: Not Given Home Med (Home Med) 1 unit PO Q4D [facility] Meropenem 500 mg/ Sodium (Chloride) 100 mls @ 100 mls/hr IVPB Q12 [facility] PRN Reason: Protocol Stop: 02/28/17 15:07 Last Admin: 02/24/17 22:13 Dose: 100 mls/hr Insulin Human Regular (Humulin R Low) 0 units SC ACHS [facility] PRN Reason: Protocol Last Admin: 02/24/17 22:30 Dose: Not Given Ondansetron HCl (Zofran Inj) 4 mg IVP Q6H PRN PRN Reason: Nausea/Vomiting Last Admin: 02/24/17 21:04 Dose: 4 mg Pantoprazole Sodium (Protonix Ec Tab) 40 mg PO ACB [facility] Last Admin: 02/23/17 08:08 Dose: 40 mg Vitamin B Complex/Vit C/Folic Acid (Nephro-Stone) 1 tab PO DAILY [facility] Last Admin: 02/23/17 10:11 Dose: 1 tab Zolpidem Tartrate (Ambien) 5 mg PO HS PRN; Protocol PRN Reason: Insomnia Last Admin: 02/25/17 00:27 Dose: 5 mg - Labs Labs: 02/25/17 06:45 02/23/17 15:30 PT 15.1 Seconds (9.9-11.8) H 02/21/17 02:25 INR 1.40 (0.93-1.08) H 02/21/17 02:25 APTT 28.7 Seconds (23.7-30.8) 02/21/17 02:25 - Constitutional Appears: Non-toxic, No Acute Distress - Eye Exam Eye Exam: EOMI, PERRL - ENT Exam ENT Exam: Mucous Membranes Dry - Respiratory Exam Respiratory Exam: Clear to Ausculation Bilateral. absent: Rales, Rhonchi, Wheezes - Cardiovascular Exam Cardiovascular Exam: RRR, +S1, +S2 - GI/Abdominal Exam GI & Abdominal Exam: Soft, Normal Bowel Sounds. absent: Distended, Firm, Guarding, Rigid, Tenderness, Organomegaly - Extremities Exam Extremities Exam: Normal Inspection. absent: Pedal Edema - Neurological Exam Neurological Exam: Alert, Awake, Oriented x3 - Psychiatric Exam Psychiatric exam: Normal Affect, Normal Mood - Skin Skin Exam: Dry, Warm Assessment and Plan - Assessment and Plan (Free Text) Assessment: Patient is a 66yo female with PMHx including HIV on HAART, CHF (EF30%), atrial fibrillation on coumadin, CAD s/p PCI with FEDE to RCA, COPD, ESRD on HD MWF who presented to the ED following a fall at home. Our service has been consulted for finding of transverse colitis. -Transverse colitis -HIV on HAART Plan: -Awaiting stool work up -Patient improved overall and has no abdominal pain -Lab work remains unremarkable with exception of mild anemia today -Vitals stable throughout -Patient may be transferred to rehab, no further recommendations at present <Michael Navarro - Last Filed: 02/25/17 11:06> Objective - Vital Signs/Intake and Output Vital Signs (last 24 hours): Temp Pulse Resp BP Pulse Ox 97.8 F 58 L 20 110/80 97 02/25/17 06:00 02/25/17 06:00 02/25/17 06:00 02/25/17 09:20 02/25/17 06:00 Intake and Output: 02/25/17 02/25/17 06:59 18:59 Intake Total 100 Output Total 0 Balance 100 - Medications Medications: Current Medications Acetaminophen (Tylenol 325mg Tab) 650 mg PO Q4H PRN PRN Reason: Pain, Mild (1-3) Last Admin: 02/22/17 14:07 Dose: 650 mg Atovaquone (Mepron) 750 mg PO BID [facility] Last Admin: 02/25/17 09:19 Dose: 750 mg Diltiazem HCl (Cardizem) 5 mg IVP ONCE PRN PRN Reason: sustained HR >130 Diltiazem HCl (Cardizem) 60 mg PO TID [facility] Last Admin: 02/25/17 09:20 Dose: Not Given Heparin Sodium (Porcine) (Heparin) 5,000 units SC Q12 [facility] PRN Reason: Protocol Last Admin: 02/24/17 22:13 Dose: Not Given Home Med (Home Med) 1 unit PO DAILY [facility] Last Admin: 02/23/17 10:11 Dose: Not Given Home Med (Home Med) 1 unit PO BID [facility] Last Admin: 02/23/17 19:32 Dose: Not Given Home Med (Home Med) 1 unit PO Q4D [facility] Meropenem 500 mg/ Sodium (Chloride) 100 mls @ 100 mls/hr IVPB Q12 [facility] PRN Reason: Protocol Stop: 02/28/17 15:07 Last Admin: 02/25/17 09:19 Dose: 100 mls/hr Insulin Human Regular (Humulin R Low) 0 units SC ACHS [facility] PRN Reason: Protocol Last Admin: 05/19/17 08:23 Dose: Not Given Ondansetron HCl (Zofran Inj) 4 mg IVP Q6H PRN PRN Reason: Nausea/Vomiting Last Admin: 02/24/17 21:04 Dose: 4 mg Pantoprazole Sodium (Protonix Ec Tab) 40 mg PO ACB [facility] Last Admin: 02/25/17 09:18 Dose: 40 mg Vitamin B Complex/Vit C/Folic Acid (Nephro-Stone) 1 tab PO DAILY [facility] Last Admin: 02/25/17 09:19 Dose: 1 tab Zolpidem Tartrate (Ambien) 5 mg PO HS PRN; Protocol PRN Reason: Insomnia Last Admin: 02/25/17 00:27 Dose: 5 mg - Labs Labs: 02/25/17 06:45 02/23/17 15:30 PT 15.1 Seconds (9.9-11.8) H 02/21/17 02:25 INR 1.40 (0.93-1.08) H 02/21/17 02:25 APTT 28.7 Seconds (23.7-30.8) 02/21/17 02:25 Attending/Attestation - Attestation I have personally seen and examined this patient.: Yes I have fully participated in the care of the patient.: Yes I have reviewed all pertinent clinical information, including history, physical exam and plan: Yes Notes (Text): 02/25/17 11:02 I have seen and examined patient with GI fellow. She is seen sitting in chair beside bed, appears comfortable. No acute events overnight. She denies abdominal pain, nausea, vomiting, fever/chills. She had one soft bowel movement this morning without presence of rectal bleeding. Tolerating PO diet without difficulty. HIV on HAART CHF Atrial fibrillation on coumadin CAD ESRD on HD Change in bowel habits, colitis - likely infectious given presentation - Awaiting results of stool studies - Continue with antibiotic therapy as per ID - Diet as tolerated - Patient would benefit from elective outpatient colonoscopy evaluation 6-8 weeks following resolution of acute symptoms - Patient planned for transfer to rehab facility, will arrange for follow up office visit - Discussed with Dr. Marcus
[2017-02-25] MEDS: Insulin Reg-LOW-Coverage SC SCH ×3 (08:23→16:45)
--- NOTE | 2017-02-25 09:09 | PN ---
DATE: 02/25/2017 SUBJECTIVE: She is comfortable sitting up in bed. She wants to go to a rehab. She wants to go to [facility]. She feels like she needs strength training , physical therapy before she goes home. She is feeling weak with her walk. She does not want to fall again. She is on Ambien, Cardizem, heparin, insulin, IV meropenem, Nephro-Stone, Protonix, Tylenol, and Zofran. PHYSICAL EXAMINATION: VITAL SIGNS: She has a 97.6 temp, 91 pulse, 100/63 blood pressure, 19 respiratory rate, 98% O2 sat on nasal cannula. HEAD: Atraumatic, normocephalic. Throat is moist. NECK: Supple. HEART: Regular rate. LUNGS: Decreased breath sounds but clear. ABDOMEN: Soft. EXTREMITIES: No edema. LABORATORY DATA: She has a 5.5 white count, 10.4 hemoglobin, 32.8 hematocrit with 178 platelets. Sodium 138, potassium 3.6, BUN 29, creatinine 8. She is on dialysis. Last blood sugar was 123, calcium 7.1, phosphorus 4.1, magnesium 2.3, total bili is 1, AST is 40, ALT is 18, alk phos 125, total protein is 8.6. She is being seen by GI, infectious disease, renal, cardiology. I am hoping to get her to [facility] for subacute rehabilitation. She has been there before. I will discuss this with case management and transition social worker. Feel like this is a transverse colon colitis, history of HIV, C. diff in the past, pancreatitis, end-stage renal disease with hemodialysis, atrial fibrillation. Continue with treatment as per ID. Also, I think she needs physical therapy before she goes home. We will continue with aggressive treatment and care. The physical therapist recommended subacute rehabilitation. With colitis, weakness, fall, HIV history, atrial fibrillation history and end- stage renal disease history with you. Yossi Marcus DO cc: [id number] TT: 02/25/2017 09:08:44 Confirmation # [id number] Dictation # [id number] MTDKelle
[2017-02-25] MEDS: Pantoprazole 40 mg EC Tab PO SCH (09:18)
[2017-02-25] MEDS: Meropenem 500 MG in Sodium Chloride 0.9% 100 ML IVPB SCH (09:19)
[2017-02-25] MEDS: Multivitamin Vitamin B Complex (Nephro-Vite) Tab PO SCH (09:19)
[2017-02-25] MEDS: Atovaquone 750 mg/5 ml Susp UD PO SCH ×2 (09:19→17:18)
[2017-02-25] MEDS: DOLUTEGRAVIR PO SCH (09:45)
[2017-02-25] MEDS: ETRAVIRINE PO SCH (09:45)
[2017-02-25 10:08] VITALS: O2SAT 97
--- NOTE | 2017-02-25 10:17 | PN ---
DATE: 02/25/2017 The patient is in a chair. She is comfortable, without shortness of breath. PHYSICAL EXAMINATION: VITAL SIGNS: Blood pressure is 110/80, the heart rate is in the 90s. NECK: Negative JVD. LUNGS: Decreased breath sounds. HEART: Revealed S1, S2. EXTREMITIES: Without edema. Hemoglobin is 10.4. Chemistries: BUN and creatinine are 25 and 8.0 with a potassium of 3.6. IMPRESSION: 1. End-stage renal disease. 2. Resolution of nausea. 3. Coronary artery disease. 4. Improvement of her lethargy. Given these findings, the patient is doing much better. She is for dialysis later this afternoon. She will need extensive physical therapy with a possible need for subacute rehab. Lamont Coyle MD cc: [id number] TT: 02/25/2017 10:17:04 Confirmation # [id number] Dictation # [id number]
--- NOTE | 2017-02-25 11:22 | CP.PCM.PN ---
Subjective - Date & Time of Evaluation Date of Evaluation: 02/25/17 Time of Evaluation: 11:20 - Subjective Subjective: Follow up Nephrology Consultation: Assessment/Plan: End stage renal disease on hemodialysis (MWF) via AVF: plan for dialysis today. Nephrovite 1 tab/day. Anemia: PRBC as needed. last Hb 10.4, mostly has been 12-13 range, will plan ADI if Hb declines further Hyperphosphatemia: continue with home meds Hypertension control with meds as ordered. Patient not on RAAS felicity as BP on low side. severe systolic CHF and CAD management as per primary team/cardiology Glycemic control, Dialysis consistent diet Further work up/management as per primary team Dose meds/antibiotics (if needed) for ESRD status. Avoid fleets enema/magnesium based laxatives. Thanks for allowing me to participate in care of your patient. Will follow patient with you. Please call if any Qs. she is being planned for d.c to rehab. stable from renal perspective Dr Adan Duong Office: [phone] Subjective: noted overnight events. denies CP/SOB/pain abdomen Physical Examination: General Appearance: Comfortable, in no acute respiratory distress, co-operative . Vitals reviewed and noted as below Lungs: Normal respiratory rate/effort. Breath sounds bilateral equal and clear Heart: Improved rate. s1s2 normal. No rub or gallop. SM+ at LSB Extremities: no edema. No varicose veins Neurological: Patient is awake and oriented to person, place and time. No focal deficit. Strength bilateral appropriate and equal Skin: dry. Normal turgor. No rash. Palpitation: Normal elasticity for age. extremities somewhat cold to touch Abdomen: Abdomen is soft. Bowel sounds +. There is no abdominal tenderness, no guarding/rigidity or organomegaly : kidney or bladder not palpable Access: RUE AVF with thrill and bruit Labs/imaging reviewed. Past medical history, past surgical history, family history, social history, allergy reviewed Objective - Vital Signs/Intake and Output Vital Signs (last 24 hours): Temp Pulse Resp BP Pulse Ox 97.8 F 58 L 20 110/80 97 02/25/17 06:00 02/25/17 06:00 02/25/17 06:00 02/25/17 09:20 02/25/17 06:00 Intake and Output: 02/25/17 02/25/17 06:59 18:59 Intake Total 100 Output Total 0 Balance 100 - Medications Medications: Current Medications Acetaminophen (Tylenol 325mg Tab) 650 mg PO Q4H PRN PRN Reason: Pain, Mild (1-3) Last Admin: 02/22/17 14:07 Dose: 650 mg Atovaquone (Mepron) 750 mg PO BID [facility] Last Admin: 02/25/17 09:19 Dose: 750 mg Diltiazem HCl (Cardizem) 5 mg IVP ONCE PRN PRN Reason: sustained HR >130 Diltiazem HCl (Cardizem) 60 mg PO TID [facility] Last Admin: 02/25/17 09:20 Dose: Not Given Heparin Sodium (Porcine) (Heparin) 5,000 units SC Q12 [facility] PRN Reason: Protocol Last Admin: 02/24/17 22:13 Dose: Not Given Home Med (Home Med) 1 unit PO DAILY [facility] Last Admin: 02/23/17 10:11 Dose: Not Given Home Med (Home Med) 1 unit PO BID [facility] Last Admin: 02/23/17 19:32 Dose: Not Given Home Med (Home Med) 1 unit PO Q4D [facility] Meropenem 500 mg/ Sodium (Chloride) 100 mls @ 100 mls/hr IVPB Q12 [facility] PRN Reason: Protocol Stop: 02/28/17 15:07 Last Admin: 02/25/17 09:19 Dose: 100 mls/hr Insulin Human Regular (Humulin R Low) 0 units SC ACHS [facility] PRN Reason: Protocol Last Admin: 02/25/17 08:23 Dose: Not Given Ondansetron HCl (Zofran Inj) 4 mg IVP Q6H PRN PRN Reason: Nausea/Vomiting Last Admin: 02/24/17 21:04 Dose: 4 mg Pantoprazole Sodium (Protonix Ec Tab) 40 mg PO ACB [facility] Last Admin: 02/25/17 09:18 Dose: 40 mg Vitamin B Complex/Vit C/Folic Acid (Nephro-Stone) 1 tab PO DAILY [facility] Last Admin: 02/25/17 09:19 Dose: 1 tab Zolpidem Tartrate (Ambien) 5 mg PO HS PRN; Protocol PRN Reason: Insomnia Last Admin: 02/25/17 00:27 Dose: 5 mg - Labs Labs: 02/25/17 06:45 02/23/17 15:30 PT 15.1 Seconds (9.9-11.8) H 02/21/17 02:25 INR 1.40 (0.93-1.08) H 02/21/17 02:25 APTT 28.7 Seconds (23.7-30.8) 02/21/17 02:25
--- NOTE | 2017-02-25 11:24 | CP.PCM.PN ---
Subjective - Date & Time of Evaluation Date of Evaluation: 02/24/17 Time of Evaluation: 09:00 - Subjective Subjective: Follow up Nephrology Consultation: Assessment/Plan: End stage renal disease on hemodialysis (MWF) via AVF: no acute need for dialysis today, will plan for tomorrow. Nephrovite 1 tab/day. Anemia: PRBC as needed. last Hb >11 hence ADI not indicated Hyperphosphatemia: continue with home meds Hypertension control with meds as ordered. Patient not on RAAS felicity as BP on low side. CHF and CAD management as per primary team/cardiology Glycemic control, Dialysis consistent diet Further work up/management as per primary team Dose meds/antibiotics (if needed) for ESRD status. Avoid fleets enema/magnesium based laxatives. Thanks for allowing me to participate in care of your patient. Will follow patient with you. Please call if any Qs. stable for d/c to rehab from renal perspective Dr Adan Duong Office: [phone] Subjective: no overnight events. tolerated dialysis. denies CP/SOB/pain abdomen Physical Examination: General Appearance: Comfortable, in no acute respiratory distress, co-operative . Vitals reviewed and noted as below Lungs: Normal respiratory rate/effort. Breath sounds bilateral equal and clear Heart: Increased rate. s1s2 normal. No rub or gallop. SM+ at LSB Extremities: no edema. No varicose veins Neurological: Patient is awake and oriented to person, place and time. No focal deficit. Strength bilateral appropriate and equal Skin: dry. Normal turgor. No rash. Palpitation: Normal elasticity for age. extremities somewhat cold to touch Abdomen: Abdomen is soft. Bowel sounds +. There is no abdominal tenderness, no guarding/rigidity or organomegaly : kidney or bladder not palpable Access: RUE AVF with thrill and bruit Labs/imaging reviewed. Past medical history, past surgical history, family history, social history, allergy reviewed Late entry for note as computers were not working yesterday. she was evaluated by me yesterday. Objective - Vital Signs/Intake and Output Vital Signs (last 24 hours): Temp Pulse Resp BP Pulse Ox 97.8 F 58 L 20 110/80 97 02/25/17 06:00 02/25/17 06:00 02/25/17 06:00 02/25/17 09:20 02/25/17 06:00 Intake and Output: 02/25/17 02/25/17 06:59 18:59 Intake Total 100 Output Total 0 Balance 100 - Medications Medications: Current Medications Acetaminophen (Tylenol 325mg Tab) 650 mg PO Q4H PRN PRN Reason: Pain, Mild (1-3) Last Admin: 02/22/17 14:07 Dose: 650 mg Atovaquone (Mepron) 750 mg PO BID [facility] Last Admin: 02/25/17 09:19 Dose: 750 mg Diltiazem HCl (Cardizem) 5 mg IVP ONCE PRN PRN Reason: sustained HR >130 Diltiazem HCl (Cardizem) 60 mg PO TID [facility] Last Admin: 02/25/17 09:20 Dose: Not Given Heparin Sodium (Porcine) (Heparin) 5,000 units SC Q12 [facility] PRN Reason: Protocol Last Admin: 02/24/17 22:13 Dose: Not Given Home Med (Home Med) 1 unit PO DAILY [facility] Last Admin: 02/23/17 10:11 Dose: Not Given Home Med (Home Med) 1 unit PO BID [facility] Last Admin: 02/23/17 19:32 Dose: Not Given Home Med (Home Med) 1 unit PO Q4D [facility] Meropenem 500 mg/ Sodium (Chloride) 100 mls @ 100 mls/hr IVPB Q12 [facility] PRN Reason: Protocol Stop: 02/28/17 15:07 Last Admin: 02/25/17 09:19 Dose: 100 mls/hr Insulin Human Regular (Humulin R Low) 0 units SC ACHS [facility] PRN Reason: Protocol Last Admin: 02/25/17 08:23 Dose: Not Given Ondansetron HCl (Zofran Inj) 4 mg IVP Q6H PRN PRN Reason: Nausea/Vomiting Last Admin: 02/24/17 21:04 Dose: 4 mg Pantoprazole Sodium (Protonix Ec Tab) 40 mg PO ACB [facility] Last Admin: 02/25/17 09:18 Dose: 40 mg Vitamin B Complex/Vit C/Folic Acid (Nephro-Stone) 1 tab PO DAILY [facility] Last Admin: 02/25/17 09:19 Dose: 1 tab Zolpidem Tartrate (Ambien) 5 mg PO HS PRN; Protocol PRN Reason: Insomnia Last Admin: 02/25/17 00:27 Dose: 5 mg - Labs Labs: 02/25/17 06:45 02/23/17 15:30 PT 15.1 Seconds (9.9-11.8) H 02/21/17 02:25 INR 1.40 (0.93-1.08) H 02/21/17 02:25 APTT 28.7 Seconds (23.7-30.8) 02/21/17 02:25
[2017-02-25 12:14] LABS: ALB/GLOB RATIO 0.6 (1.1-1.8); BILIRUBIN,TOTAL 1.1 mg/dL (0.2-1.3); POTASSIUM 3.3 mmol/L (3.6-5.0); TOTAL PROTEIN 9.1 g/dL (5.8-8.3)
[2017-02-25 12:20] LABS: CALCIUM 6.9 mg/dL (8.4-10.5)
[2017-02-25 16:39] LABS: HEMATOCRIT 39.4 % (36.0-48.0); MEAN CELL VOLUME 100.5 fL (80.0-105.0); MEAN CORPUSCULAR HEMOGLOBIN 32.1 pg (25.0-35.0); RED CELL DISTRIBUTION WIDTH 21.7 % (11.5-14.5); WHITE BLOOD COUNT 3.2 10^3/ul (4.5-11.0)
[2017-02-25 17:19] VITALS: BP 116/76
[2017-02-25 18:57] VITALS: PULSE 60; RESP 19; TEMP 98
--- NOTE | 2017-02-25 22:15 | CP.PCM.PN ---
Subjective - Date & Time of Evaluation Date of Evaluation: 02/25/17 Time of Evaluation: 11:05 - Subjective Subjective: Comfortable, more awake and has more energy, afebrile overnight. Objective - Vital Signs/Intake and Output Vital Signs (last 24 hours): Temp Pulse Resp BP Pulse Ox 98.0 F 60 19 116/76 97 02/25/17 16:00 02/25/17 16:00 02/25/17 16:00 02/25/17 17:18 02/25/17 16:00 Intake and Output: 02/25/17 02/26/17 18:59 06:59 Intake Total 300 Balance 300 - Labs Labs: 02/25/17 06:45 02/25/17 11:30 PT 15.1 Seconds (9.9-11.8) H 02/21/17 02:25 INR 1.40 (0.93-1.08) H 02/21/17 02:25 APTT 28.7 Seconds (23.7-30.8) 02/21/17 02:25 - Constitutional Appears: Non-toxic, No Acute Distress - Head Exam Head Exam: NORMAL INSPECTION - Neck Exam Neck Exam: absent: Lymphadenopathy, Meningismus - Respiratory Exam Respiratory Exam: Decreased Breath Sounds - Cardiovascular Exam Cardiovascular Exam: +S1, +S2 - GI/Abdominal Exam GI & Abdominal Exam: Soft. absent: Tenderness Assessment and Plan - Assessment and Plan (Free Text) Plan: Assessment Consider transverse colon colitis, R/O infectious cause, R/O ischemic colitis, clinically improved HIV, non-compliant with antiretroviral therapy (follows Dr. Reeder at [facility] but does not recall latest CD4 count or virus load) Cdiff associated diarrhea, slowly improving history of pancreatitis ESRD on hemodialysis Atrial fibrillation Asthma peripheral vascular disease coronary artery disease S/P cardiac catheterization, S/P AICD placement for cardiomyopathy with low EF cerebrovascular accident Plan on Merrem day 5; blood cx are negative - we may d/c antibiotics continue ART (patient takes Emtricitabine, Dolutegravir, Edurant) continue Mepron
--- NOTE | 2017-03-03 11:56 | CARDCATH ---
PROCEDURE DATE: 02/21/2017 I was called by the house doctor because the patient had continued chest pain and nausea. They suspe cted acute coronary syndrome. The patient was brought to the paint laboratory technician. Attempt at access from both extremities were unable due to her severe peripheral vascular disease. Her upper extremities were un available due to her access for dialysis. No procedure was performed. The patient was sent back to the floor in stable condition. After medical therapy, her symptoms were controlled. There was no ev idence for ongoing cardiac issues. Lamont Coyle MD cc: [id number] TT: 03/03/2017 11:52:45 en
--- NOTE | 2017-03-11 11:40 | DS ---
She was doing well. She was being seen by cardiology. The plan is to discharge her to [facility] for subacute rehab and hemodialysis. She has history of HIV, C. diff colitis, pancreatitis, end-sta ge renal disease. Physical therapy recommended subacute rehabilitation. She has human immunodeficiency virus, atrial fibrillation and after being seen by cardiology, infecti ous disease, renal, GI, social media job titles, we are able to get her to [facility] for physical therapy before she goes home. She is discharged today. Yossi Marcus DO cc: [id number] TT: 03/11/2017 11:39:23 en
== END 2017-02-25 20:43 | DRG 286 ==
LOC: ED 01:16 → ERH 04:13 → 3RSO 05:31 → OBSVTOIN 10:44 → CCU 12:53 → 2RSO 02-22 11:32 → 3RNO 02-23 17:02
PROVIDERS: ADMIT Family Medicine; ATTEND Family Medicine
PROC: 4A023N7 Measurement of Cardiac Sampling and Pressure, Left Heart, Percutaneous Approach (ICD-10-PCS; principal; 2017-02-21)
PROC: B211YZZ Fluoroscopy of Multiple Coronary Arteries using Other Contrast (ICD-10-PCS; 2017-02-21)
PROC: B215YZZ Fluoroscopy of Left Heart using Other Contrast (ICD-10-PCS; 2017-02-21)
PROC: 5A1D60Z (ICD-10-PCS; 2017-02-21)
DX: I25.110 Atherosclerotic heart disease of native coronary artery with unstable angina pectoris (principal); N18.6 End stage renal disease; I13.2 Hypertensive heart and chronic kidney disease with heart failure and with stage 5 chronic kidney disease, or end stage renal disease; I42.0 Dilated cardiomyopathy; R18.8 Other ascites; E11.22 Type 2 diabetes mellitus with diabetic chronic kidney disease; N25.81 Secondary hyperparathyroidism of renal origin; I50.22 Chronic systolic (congestive) heart failure; E83.39 Other disorders of phosphorus metabolism; I73.9 Peripheral vascular disease, unspecified; I25.5 Ischemic cardiomyopathy; I45.4 Nonspecific intraventricular block; I48.91 Unspecified atrial fibrillation; D64.9 Anemia, unspecified; E11.649 Type 2 diabetes mellitus with hypoglycemia without coma; J44.9 Chronic obstructive pulmonary disease, unspecified; J45.909 Unspecified asthma, uncomplicated; K52.9 Noninfective gastroenteritis and colitis, unspecified; R04.0 Epistaxis; Z79.01 Long term (current) use of anticoagulants; Z99.2 Dependence on renal dialysis; Z98.51 Tubal ligation status; Z95.810 Presence of automatic (implantable) cardiac defibrillator; Z91.14 Patient's other noncompliance with medication regimen; Z87.891 Personal history of nicotine dependence; Z87.01 Personal history of pneumonia (recurrent); Z86.73 Personal history of transient ischemic attack (TIA), and cerebral infarction without residual deficits; Z95.5 Presence of coronary angioplasty implant and graft; Z86.010 Personal history of colon polyps; Z83.3 Family history of diabetes mellitus; Z82.49 Family history of ischemic heart disease and other diseases of the circulatory system; Z79.899 Other long term (current) drug therapy; Z88.1 Allergy status to other antibiotic agents; Z88.2 Allergy status to sulfonamides; R42 Dizziness and giddiness; R47.9 Unspecified speech disturbances; R20.0 Anesthesia of skin; Z87.19 Personal history of other diseases of the digestive system; G93.89 Other specified disorders of brain; E11.40 Type 2 diabetes mellitus with diabetic neuropathy, unspecified; I08.3 Combined rheumatic disorders of mitral, aortic and tricuspid valves; I27.2 Other secondary pulmonary hypertension; G47.00 Insomnia, unspecified; R11.0 Nausea; Z53.09 Procedure and treatment not carried out because of other contraindication; Z21 Asymptomatic human immunodeficiency virus [HIV] infection status

== ENCOUNTER 2017-04-21 21:34 | Inpatient (IN) | payer MEDICARE, OTHER ==
[2017-04-21 21:35] VITALS: PULSE 73
--- NOTE | 2017-04-21 22:03 | ED PDOC ---
Arrival/HPI - General Time Seen by Provider: 04/21/17 21:36 Historian: Care Home, EMS - History of Present Illness Narrative History of Present Illness (Text): 04/21/17 21:50 Newton Juarez is a 66 year old female, whose past medical history includes diabetes, HIV, CONTIN[employer], hemiplegia/hemiparesis, and ESRD, who presents to the Emergency department transferred from detention for altered mental status and hypoglycemia today. Patient noted to be hypoglycemic intially at 60 and was given D50 in the field. Accucheck on arrival to ER after receiving D50 was 90. Limited HPI and ROS limited due to patient's altered mental status. PMD: Dr. Marcus Time/Duration: Other (today) Symptom Onset: Gradual Symptom Course: Unchanged Activities at Onset: Light Context: Home (snf) Past Medical History - Provider Review Nursing Documentation Reviewed: Yes - Infectious Disease Hx of Infectious Diseases: None - Tetanus Immunization Tetanus Immunization: Unknown - Cardiac Hx Congestive Heart Failure: Yes (EF 30%.) Hx Hypertension: Yes - Pulmonary Hx Chronic Obstructive Pulmonary Disease (COPD): Yes - Neurological HX Cerebrovascular Accident: Yes - HEENT Hx HEENT Disorder: Yes (glasses) - Renal Hx Dialysis: Yes (m/w/f right arm access) Date of Last Dialysis Treatment: 02/18/17 - Endocrine/Metabolic Hx Diabetes Mellitus Type 2: Yes - Hematological/Oncological Hx Blood Disorders: Yes Hx Blood Transfusions: No Hx Blood Transfusion Reaction: No - Integumentary Hx Dermatological Disorder: No - Musculoskeletal/Rheumatological Hx Musculoskeletal Disorders: Yes Hx Falls: Yes (past) Hx Unsteady Gait: Yes Other/Comment: unsteady gait use quad cane - Gastrointestinal Hx Gastrointestinal Disorders: No - Genitourinary/Gynecological Hx Genitourinary Disorders: Yes Hx Reproductive Disorders: No - Psychiatric Hx Psychophysiologic Disorder: No Hx Depression: No Hx Emotional Abuse: No Hx Physical Abuse: No Hx Substance Use: No - Surgical History Hx Cardiac Catheterization: Yes Hx Coronary Stent: Yes (x1 2002) Hx Open Heart Surgery: Yes (defibrillator 2002) Hx Tubal Ligation: Yes Other/Comment: defibrilator/pacemaker --tubal ligation --cardiac cath with stents-- cystoscopy,urethral dilatation, bilateral retrograde pyelogram, fistulagrams, abd wall hematoma exc abd wall mass 06/2014, r av fistula upper arm (ALL CONFIRMED AND FROM PAST TRIAGE) - Anesthesia Hx Anesthesia: No - Suicidal Assessment Feels Threatened In Home Enviroment: No Family/Social History - Physician Review Nursing Documentation Reviewed: Yes Family/Social History: Unknown Family HX Smoking Status: Unknown If Ever Smoked Hx Alcohol Use: No Hx Substance Use: No Hx Substance Use Treatment: No Allergies/Home Meds Allergies/Adverse Reactions: Allergies sulfamethoxazole [From Bactrim] Allergy (Verified 02/21/17 01:28) RASH trimethoprim [From Bactrim] Allergy (Verified 02/21/17 01:28) RASH Home Medications: Home Meds Medication Instructions Recorded Confirmed Dolutegravir Sodium [Tivicay] 50 mg PO BID 02/22/17 04/21/17 Emtricitabine [Emtriva] 200 mg PO MWF 02/22/17 04/21/17 Loperamide [Imodium] 2 mg PO BID PRN 02/22/17 04/21/17 Ondansetron HCl [Zofran] 4 mg PO Q4 PRN 02/22/17 04/21/17 Rilpivirine HCl [Edurant] 25 mg PO BRK 02/22/17 04/21/17 metroNIDAZOLE [Flagyl] 500 mg PO TID 02/22/17 04/21/17 Amiodarone HCl [Pacerone] 400 mg PO BID 04/21/17 04/21/17 Aspirin [Lo-Dose Aspirin EC] 81 mg PO DAILY 04/21/17 04/21/17 Cinacalcet [Sensipar] 30 mg PO DAILY 04/21/17 04/21/17 Colchicine [Colcrys] 0.6 mg PO DAILY 04/21/17 04/21/17 Famotidine [Pepcid] 20 mg PO DAILY 04/21/17 04/21/17 Metoprolol Tartrate [Lopressor] 100 mg pe PO DAILY 04/21/17 04/21/17 Mexiletine HCl [Mexiletine HCl] 150 mg PO TID 04/21/17 04/21/17 Midodrine [Proamatine] 5 mg PO DAILY 04/21/17 04/21/17 Mirtazapine [Remeron] 15 mg PO DAILY 04/21/17 04/21/17 Nut.tx.impaired Renal Fxn,Soy 1,000 mg PO BID 04/21/17 04/21/17 [Nepro Carb Steady] Zolpidem [Ambien] 5 mg PO DAILY 04/21/17 04/21/17 Review of Systems - Review of Systems Systems not reviewed;Unavailable: Altered Mental Status Physical Exam - Physical Exam Narrative Physical Exam (Text): - Physical exam - Systems Exam Head: Present: Atraumatic, Normocephalic Pupils: Present: PERRL Extraocular Muscles: Present: EOMI Conjunctiva: Present: Normal Mouth: Present: Dry Mucous Membranes Neck: Present: Normal Range of Motion. No: MIDLINE TENDERNESS, Paraspinal Tenderness Respiratory/Chest: Present: Clear to Auscultation, Good Air Exchange. No: Respiratory Distress, Accessory Muscle Use, Tachypnic Cardiovascular: Present: Regular Rate and Rhythm, Normal S1, S2, Peripheral Pulses Present. No: Murmurs Abdomen: Present: Normal Bowel Sounds, No: Tenderness, Peritoneal Signs, Rebound, Guarding, Distention Back: Present: Normal Inspection. No: Midline Tenderness, Paraspinal Tenderness Upper Extremity: Present: Normal Inspection, Hemodialysis access in right upper extremity with positive thrill, bruit, and pulse. No: Cyanosis, Edema Lower Extremity: Present: Normal Inspection. No: Edema Neurological: Present: Patient responsive to tactile stimuli. Skin: Present: Warm, Dry, Normal Color. No: Rashes Psychiatric: Present: Lethargic Vital Signs Reviewed: Yes Vital Signs Temp Pulse Resp BP Pulse Ox 04/22/17 00:13 76 20 103/58 L 97 04/21/17 22:46 66 18 90/53 L 97 04/21/17 21:52 68 18 97 04/21/17 21:40 97.8 F 70 20 85/57 L 96 Temperature: Afebrile Blood Pressure: Hypotensive Pulse: Regular Respiratory Rate: Normal Pain Distress: None Medical Decision Making ED Course and Treatment: 04/21/17 21:50 Impression: 66 year old female transferred from detention for AMS and hypoglycemia. On exam, pt is responsive to tactile stimuli, dry mucous membranes. Differential Diagnosis included but are not limited to: sepsis vs. hypogylcemia vs. dehydration Plan: -- EKG -- Chest X-ray -- Labs, troponin, VBG, blood cultures, -- Urinalysis, urine cultures -- IV fluids -- Reassess and disposition Prior Visits: Notes and results from previous visits were reviewed. On 02/21/2017, pt was seen in the Emergency department for generalized weakness s/p fall. Pt was admitted to the hospital for further evaluation. Pt has history of HIV, C.diff colitis, and ESRD. Pt had a cardiac catheterization on , however procedure not performed due to lack of access. Progress Notes: 30cc per kg bolus not given due to patient's history of hemodialysis. EKG: Ordered, reviewed, and independently interpreted the EKG. Rate : 72 BPM Rhythm : Atrial fibrillation Interpretation : Irregular. No ST elevations. Comparison : No changes versus EKG on 02/21/2017. 04/21/17 23:40 CXR Impression: As read by me, cardiomegaly, right lobar infiltrate. No effusion. 04/22/17 00:[address] Mendoza, lead producer, who will evaluate pt. 04/22/17 01:[address] Mendoza, present in Emergency department to evaluate pt, accepts pt in to ICU. Pt will be admitted to ICU for sepsis, pneumonia, and hypoglycemia. Paged Dr. Marcus. 04/22/17 01:[address] Vidales, covering for Dr. Marcus, aware of admission. - Critical Care Critical Care Minutes: 30 minutes - Lab Interpretations Lab Results: 04/21/17 21:35 04/21/17 23:59 Lab Results 04/22/17 01:00: Lactic Acid 7.7 H* 04/22/17 00:35: pCO2 39, pO2 74.0 L, HCO3 17.5 L, ABG pH 7.26 L, ABG Total CO2 18.7 L, ABG O2 Saturation 95.8, ABG O2 Content 16.7, ABG Base Excess -9.0 L, ABG Hemoglobin 12.8, ABG Carboxyhemoglobin 2.7 H, POC ABG HHb (Measured) 4.1, ABG Methemoglobin 0.7, ABG O2 Capacity 17.4, Hgb O2 Saturation 92.4 L, FiO2 28.0 04/22/17 00:10: POC Glucose (mg/dL) 153 H 04/21/17 23:59: pO2 27 L, VBG pH 7.26 L, VBG pCO2 55.0, VBG HCO3 24.7, VBG Total CO2 26.4, VBG O2 Sat (Calc) 51.9, VBG Base Excess -3.1 L, VBG Potassium 4.3, Sodium 150.0 H, Chloride 93.0 L, Glucose 200 H, Lactate 6.1 H*, FiO2 21.0, Venous Blood Potassium 4.3 04/21/17 23:59: Sodium 141, Chloride 99, Potassium 3.6, Carbon Dioxide 24, Anion Gap 22 H, BUN 34 H, Creatinine 6.7 H, Est GFR ( Amer) 7, Est GFR ( Non-Af Amer) 6, Random Glucose 187 H, Calcium 7.3 L, Phosphorus 6.1 H, Magnesium 2.1, Total Bilirubin 3.0 H, AST 89 H, ALT 19, Alkaline Phosphatase 118 , Troponin I 0.03 D, Total Protein 8.3, Albumin 3.0, Globulin 5.3, Albumin/ Globulin Ratio 0.6 L 04/21/17 23:59: PT 27.9 H, INR 2.58 H, APTT 35.9 H 04/21/17 23:58: POC Glucose (mg/dL) 217 H 04/21/17 23:21: POC Glucose (mg/dL) 274 H 04/21/17 23:09: POC Glucose (mg/dL) 29 L* 04/21/17 21:35: pO2 70 H, VBG pH 7.32, VBG pCO2 44.0, VBG HCO3 22.7, VBG Total CO2 24.1, VBG O2 Sat (Calc) 94.1 H, VBG Base Excess -3.5 L, VBG Potassium 7.0 H* , Sodium 138.0, Chloride 99.0, Glucose 34 L* D, Lactate 7.4 H*, FiO2 21.0, Venous Blood Potassium 7.0 H* 04/21/17 21:35: WBC 8.9 D, RBC 4.08, Hgb 14.0, Hct 43.1, MCV 105.6 H, MCH 34.3 , MCHC 32.5, RDW 21.5 H, Plt Count 156, MPV 11.0, Gran % 77.1 H, Lymph % (Auto) 13.2 L, [place] % (Auto) 9.5 H, Eos % (Auto) 0.1 L, Baso % (Auto) 0.1, Gran # 6.85 H, Lymph # 1.2, [place] # 0.8 H, Eos # 0.0, Baso # 0.01 I have reviewed the lab results: Yes - RAD Interpretation Radiology Orders: 04/21/17 22:16 CHEST PORTABLE [RAD] Stat 04/22/17 06:00 CHEST PORTABLE [RAD] Routine Reimbursement Analyst: ED Physician - EKG Interpretation Interpreted by ED Physician: Yes Type: 12 lead EKG - Medication Orders Current Medication Orders: Amiodarone HCl (Cordarone) 400 mg PO BID AIDAN Aspirin (Ecotrin) 81 mg PO DAILY AIDAN Cinacalcet (Sensipar) 30 mg PO DAILY AIDAN Famotidine (Pepcid) 20 mg PO DAILY AIDAN Vancomycin HCl (Vancomycin 1gm) 1 gm in 250 mls @ 167 mls/hr IVPB DAILY AIDAN PRN Reason: Protocol Piperacillin Sod/Tazobactam Sod (Zosyn 2.25 Gm In 0.9% 100 Ml) 2.25 gm in 100 mls @ 100 mls/hr IVPB Q6 AIDAN PRN Reason: Protocol Stop: 04/22/17 12:59 Dextrose (Dextrose 10% In Water) 500 mls @ 75 mls/hr IV .Q6H40M AIDAN Midodrine (Proamatine) 5 mg PO DAILY AIDAN Mirtazapine (Remeron) 15 mg PO DAILY AIDAN Dolutegravir Sodium [Tivicay] 50 Mg ( Home Med) 50 mg PO BID AIDAN Emtricitabine [ Emtriva] 200 Mg ( Home Med) 200 mg PO MWF [facility] Mexiletine Hcl [ Mexiletine Hcl] 150 Mg 150 mg PO TID AIDAN Rilpivirine Hcl [ Edurant] 25 Mg (Home Med) 25 mg PO BRK AIDAN Ondansetron HCl (Zofran Inj) 4 mg IVP Q6H PRN PRN Reason: Nausea/Vomiting Discontinued Medications Dextrose (Dextrose 50% Inj) 100 ml IVP STAT STA Stop: 04/21/17 23:03 Last Admin: 04/21/17 23:19 Dose: 100 ml Sodium Chloride 500 ml/ IV (SUPPLIES) 500 mls @ 3,810.18 mls/hr IV ONCE ONE PRN Reason: 60 ML/KG/HR Stop: 04/21/17 22:17 Last Admin: 04/21/17 23:31 Dose: 3,810.18 mls/hr Vancomycin HCl (Vancomycin 1gm) 1 gm in 250 mls @ 133.333 mls/hr IVPB STAT STA PRN Reason: Protocol Stop: 04/22/17 00:56 Last Admin: 04/22/17 00:53 Dose: 133.333 mls/hr Piperacillin Sod/Tazobactam Sod (Zosyn 4.5 Gm In Ns 100ml) 4.5 gm in 100 mls @ 200 mls/hr IVPB STAT STA PRN Reason: Protocol Stop: 04/21/17 23:33 Last Admin: 04/22/17 00:22 Dose: 200 mls/hr Dextrose (Dextrose 10% In Water) 500 mls @ 125 mls/hr IV .Q4H [facility] Last Admin: 04/22/17 00:53 Dose: 125 mls/hr Sodium Chloride (Sodium Chloride 0.9%) 500 mls @ 999 mls/hr IV .Q31M STA Stop: 04/22/17 02:19 Last Admin: 04/22/17 02:26 Dose: 999 mls/hr Ketamine HCl (Ketalar) 80 mg IV ONCE ONE Stop: 04/21/17 23:46 Rocuronium [place] (Zemuron) 70 mg IVP ONCE ONE Stop: 04/21/17 23:49 - Scribe Statement The provider has reviewed the documentation as recorded by the Razia Altamirano Provider Scribe Attestation: All medical record entries made by the Scribe were at my direction and personally dictated by me. I have reviewed the chart and agree that the record accurately reflects my personal performance of the history, physical exam, medical decision making, and the department course for this patient. I have also personally directed, reviewed, and agree with the discharge instructions and disposition. Disposition/Present on Arrival - Present on Arrival Any Indicators Present on Arrival: No History of DVT/PE: No History of Uncontrolled Diabetes: No Urinary Catheter: No History Surgical Site Infection Following: None - Disposition Have Diagnosis and Disposition been Completed?: Yes Diagnosis: Sepsis Disposition: HOSPITALIZED Disposition Time: :13 Patient Plan: Admission Condition: SERIOUS
[2017-04-21 22:51] LABS: BASO # 0.01 K/mm3 (0.0-2.0); BASO % 0.1 % (0.0-3.0); EOS % 0.1 % (1.5-5.0); GRAN # 6.85 (1.4-6.5); GRAN % 77.1 % (50.0-68.0); LYMPH # 1.2 (1.2-3.4); LYMPH % 13.2 % (22.0-35.0); MEAN CELL VOLUME 105.6 fL (80.0-105.0); MEAN CORPUSCULAR HEMOGLOBIN 34.3 pg (25.0-35.0); MEAN CORPUSCULAR HGB CONC 32.5 g/dl (31.0-37.0); MONO # 0.8 (0.1-0.6); MONO % 9.5 % (1.0-6.0); PLATELET COUNT 156 10^3/uL (120.0-450.0); RBC 4.08 10^6/uL (3.5-6.1); RED CELL DISTRIBUTION WIDTH 21.5 % (11.5-14.5); WHITE BLOOD COUNT 8.9 10^3/ul (4.5-11.0)
[2017-04-21 22:52] LABS: VENOUS BLOOD GAS BASE EXCESS -3.5 mmol/L (0.0-2.0); VENOUS BLOOD GAS PO2 70 mm/Hg (30-55); VENOUS BLOOD PH 7.32 (7.32-7.43)
[2017-04-21] MEDS ORDERED: Dextrose 50% SYRINGE Inj (50 ml) IVP STA (23:02)
[2017-04-21] MEDS ORDERED: Vancomycin 1gm in NS 250ml 1 GM/250 ML BAG IVPB STA (23:04)
[2017-04-21] MEDS ORDERED: Piperacill/Tazo 4.5gm in NS 4.5 GM/100 ML BAG IVPB STA (23:04)
[2017-04-21] MEDS ORDERED: Ketamine 10 mg/ml Inj (20 ml) IV ONE (23:45)
[2017-04-21] MEDS ORDERED: Rocuronium 10 mg/ml (5 ml) IVP ONE (23:48)
[2017-04-22] MEDS ORDERED: Dextrose 5%/0.9% NS 1,000 ML IV STA (00:26)
[2017-04-22 00:30] LABS: INR 2.58 (0.93-1.08); PARTIAL THROMBOPLASTIN TIME 35.9 Seconds (23.7-30.8); PROTHROMBIN TIME 27.9 Seconds (9.9-11.8)
[2017-04-22 00:32] LABS: ALB/GLOB RATIO 0.6 (1.1-1.8); CALCIUM 7.3 mg/dL (8.4-10.5); MAGNESIUM 2.1 mg/dL (1.7-2.2)
[2017-04-22 00:43] LABS: TROPONIN I 0.03 ng/mL
[2017-04-22 00:44] LABS: VENOUS BLOOD GAS BASE EXCESS -3.1 mmol/L (0.0-2.0); VENOUS BLOOD GAS PO2 27 mm/Hg (30-55); VENOUS BLOOD PH 7.26 (7.32-7.43)
[2017-04-22 00:49] LABS: ARTERIAL BLOOD GAS HCO3 17.5 mmol/L (21-28); ARTERIAL BLOOD GAS HEMOGLOBIN 12.8 g/dL (11.7-17.4); ARTERIAL BLOOD GAS O2 CAPACITY 17.4 mL/dl (16-24); ARTERIAL BLOOD GAS O2 CONTENT 16.7 ML/dl (15-23); ARTERIAL BLOOD GAS O2 SAT 95.8 % (95-98); ARTERIAL BLOOD GAS PCO2 39 mm/Hg (35-45); ARTERIAL BLOOD GAS PH 7.26 (7.35-7.45); ARTERIAL BLOOD GAS TCO2 18.7 mmol.L (22-28)
[2017-04-22] MEDS ORDERED: Sodium Chloride 0.9% 500 ML IV STA (01:49)
--- NOTE | 2017-04-22 03:25 | CT ---
EXAM: CT Abdomen and Pelvis Without Intravenous Contrast CLINICAL HISTORY: 66 years old, female; Condition or disease; Other: Sepsis; Additional info: Severe sepsis with recent colitis TECHNIQUE: Axial computed tomography images of the abdomen and pelvis without intravenous contrast. This CT exam was performed using one or more of the following dose reduction techniques: automated exposure control, adjustment of the mA and/or kV according to patient size, and/or use of iterative reconstruction technique. Coronal and sagittal reformatted images were created and reviewed. COMPARISON: 02/21/2017 FINDINGS: ABDOMEN: Liver: Interval enlargement of the liver, now measuring 22 cm in longitudinal dimension (previously measuring 18 cm). Gallbladder and bile ducts: The gallbladder is only minimally distended, but demonstrates diffuse wall thickening and surrounding inflammatory change. No intra-extrahepatic biliary ductal dilation. Pancreas: Limited evaluation secondary to the lack of intravenous contrast. Spleen: No acute findings. Adrenals: No acute findings. Kidneys and ureters: No obstructing stones. No hydronephrosis. Multiple simple and complex cysts are again identified bilaterally. PELVIS: Bladder: The bladder is minimally distended, limiting its evaluation. Reproductive: Calcified fibroids within the uterus. Appendix: The appendix is of normal-caliber (series 2, image 200; series 602, image 57). ABDOMEN and PELVIS: Stomach and bowel: Moderate perigastric fluid, predominantly surrounding the fundus of the stomach. Extensive mural thickening within the cecum and ascending colon, possibly reactive from the adjacent gallbladder. Free fluid extends from the right paracolic cutter, into the deep pelvis as well as the rectovaginal pouch. Peritoneum: As above. Lymph nodes: Limited evaluation without intravenous contrast. Vasculature: No aortic aneurysm. Extensive vascular calcifications are present. Bones: Diffuse bony demineralization, without acute fracture. IMPRESSION: Gallbladder wall thickening with pericholecystic inflammation, findings suggesting acute cholecystitis. Interval progression of the ascites, seen on prior examination. Interim enlargement of the liver, with compared with previous examination performed 02/21/2017. EXAM: CT Chest Without Intravenous Contrast CLINICAL HISTORY: 66 years old, female; Condition or disease; Other: Sepsis; Additional info: Severe sepsis with recent colitis TECHNIQUE: Axial computed tomography images of the chest without intravenous contrast. This CT exam was performed using one or more of the following dose reduction techniques: automated exposure control, adjustment of the mA and/or kV according to patient size, and/or use of iterative reconstruction technique. Coronal and sagittal reformatted images were created and reviewed. COMPARISON: CT - CHEST,ABDOMEN,PELVIS W/O CONT 02/21/2017 2:37:05 AM FINDINGS: Lungs: Interval progression of the left-sided pleural effusion, now loculated and isolated to the left upper lobe. Elevation of the left hemidiaphragm is again identified, with adjacent compressive atelectasis. A moderate right-sided pleural effusion is now noted, with adjacent compressive atelectasis. Varicose bronchiectasis is again identified, along with scarring in the right middle lobe (unchanged). Pleural spaces: As above. Heart: The heart is enlarged, with a small pericardial effusion. Extensive coronary artery calcifications are noted. An AICD is present. Vasculature: No aortic aneurysm. Prominence of the main pulmonary artery, suggesting pulmonary hypertension. Lymph nodes: Persistent hilar lymphadenopathy. Bones: No acute fracture. IMPRESSION: Loculated left upper lobe effusion. Moderate right-sided pleural effusion with adjacent compressive atelectasis. Cardiomegaly with a small pericardial effusion. Findings suggesting pulmonary hypertension. Hilar lymphadenopathy.
--- NOTE | 2017-04-22 04:09 | CP.PCM.CON ---
<VERGARAJUANCARLOS - Last Filed: 04/22/17 04:29> History of Present Illness - History of Present Illness History of Present Illness: CC: AMS and hypoglycemia 66 year old female with PMH HIV, ESRD, and HTN was brought to the [facility] [place] ED on 04/22 from [facility] with complaints of altered mental status and hypoglycemia. According to information obtained from half-way charts, on patient was verbally communicative. When seen today patient was said to have altered mentation, being responsive to only noxious stimuli. Baseline mentation as per half-way staff is awake/alert and able to answer some direct questions. Patient was running low blood pressure for the past couple of days prompting the nursing staff to check patients blood glucose levels. Upon checking glucose levels patient had a level < 100, prompting D5 ampule admissions in the field, which brought her up to 200. PMD:Dr. Marcus PSH:AICD placement SH:resides at [facility] FH:n/a Meds:in chart Allergies- Bactrim Review of Systems - Review of Systems Systems not reviewed;Unavailable: Altered Mental Status - Constitutional Constitutional: Lethargy, Malaise Past Patient History - Infectious Disease Hx of Infectious Diseases: None - Tetanus Immunizations Tetanus Immunization: Unknown - Past Social History Smoking Status: Unknown If Ever Smoked - CARDIAC Hx Congestive Heart Failure: Yes (EF 30%.) Hx Hypertension: Yes - PULMONARY Hx Chronic Obstructive Pulmonary Disease (COPD): Yes - NEUROLOGICAL HX Cerebrovascular Accident: Yes - HEENT Hx HEENT Problems: Yes (glasses) - RENAL Hx Dialysis: Yes (m/w/f right arm access) Date of Last Dialysis Treatment: 02/18/17 - ENDOCRINE/METABOLIC Hx Diabetes Mellitus Type 2: Yes - HEMATOLOGICAL/ONCOLOGICAL Hx Blood Disorders: Yes Hx Blood Transfusions: No Hx Blood Transfusion Reaction: No - INTEGUMENTARY Hx Dermatological Problems: No - MUSCULOSKELETAL/RHEUMATOLOGICAL Hx Musculoskeletal Disorders: Yes Hx Falls: Yes (past) Hx Unsteady Gait: Yes Other/Comment: unsteady gait use quad cane - GASTROINTESTINAL Hx Gastrointestinal Disorders: No - GENITOURINARY/GYNECOLOGICAL Hx Genitourinary Disorders: Yes Hx Reproductive Disorders: No - PSYCHIATRIC Hx Psychophysiologic Disorder: No Hx Depression: No Hx Emotional Abuse: No Hx Physical Abuse: No Hx Substance Use: No - SURGICAL HISTORY Hx Cardiac Catheterization: Yes Hx Coronary Stent: Yes (x1 2002) Hx Open Heart Surgery: Yes (defibrillator 2002) Hx Tubal Ligation: Yes Other/Comment: defibrilator/pacemaker --tubal ligation --cardiac cath with stents-- cystoscopy,urethral dilatation, bilateral retrograde pyelogram, fistulagrams, abd wall hematoma exc abd wall mass 06/2014, r av fistula upper arm (ALL CONFIRMED AND FROM PAST TRIAGE) - ANESTHESIA Hx Anesthesia: No Meds Allergies/Adverse Reactions: Allergies Allergy/AdvReac Type Severity Reaction Status Date / Time sulfamethoxazole Allergy RASH Verified 02/21/17 01:28 [From Bactrim] trimethoprim [From Bactrim] Allergy RASH Verified 02/21/17 01:28 - Medications Medications: Current Medications Amiodarone HCl (Cordarone) 400 mg PO BID [facility] Aspirin (Ecotrin) 81 mg PO DAILY [facility] Cinacalcet (Sensipar) 30 mg PO DAILY [facility] Famotidine (Pepcid) 20 mg PO DAILY [facility] Vancomycin HCl (Vancomycin 1gm) 1 gm in 250 mls @ 167 mls/hr IVPB DAILY [facility] PRN Reason: Protocol Piperacillin Sod/Tazobactam Sod (Zosyn 2.25 Gm In 0.9% 100 Ml) 2.25 gm in 100 mls @ 100 mls/hr IVPB Q6 [facility] PRN Reason: Protocol Stop: 04/22/17 12:59 Dextrose (Dextrose 10% In Water) 500 mls @ 75 mls/hr IV .Q6H40M [facility] Midodrine (Proamatine) 5 mg PO DAILY [facility] Mirtazapine (Remeron) 15 mg PO DAILY [facility] Dolutegravir Sodium [Tivicay] 50 Mg ( Home Med) 50 mg PO BID [facility] Emtricitabine [ Emtriva] 200 Mg ( Home Med) 200 mg PO MWF [facility] Mexiletine Hcl [ Mexiletine Hcl] 150 Mg 150 mg PO TID [facility] Rilpivirine Hcl [ Edurant] 25 Mg (Home Med) 25 mg PO BRK [facility] Ondansetron HCl (Zofran Inj) 4 mg IVP Q6H PRN PRN Reason: Nausea/Vomiting Physical Exam - Constitutional Appears: Confused, Chronically Ill - Head Exam Head Exam: ATRAUMATIC, NORMAL INSPECTION, NORMOCEPHALIC - Eye Exam Eye Exam: Normal appearance - ENT Exam ENT Exam: Mucous Membranes Dry. absent: Mucous Membranes Moist, Normal Exam - Neck Exam Neck exam: Positive for: Normal Inspection - Respiratory Exam Respiratory Exam: NORMAL BREATHING PATTERN - Cardiovascular Exam Cardiovascular Exam: REGULAR RHYTHM. absent: Clicks, Gallop - GI/Abdominal Exam GI & Abdominal Exam: Distended, Normal Bowel Sounds, Soft. absent: Firm, Guarding, Rigid - Extremities Exam Extremities exam: Negative for: full ROM, pedal edema - Neurological Exam Neurological exam: Altered (AAO x 3) - Skin Skin Exam: Dry Results - Vital Signs Recent Vital Signs: Last Vital Signs Temp 96.9 F L 04/22/17 03:10 Pulse 63 04/22/17 03:50 Resp 21 04/22/17 03:50 BP 103/58 L 04/22/17 00:13 Pulse Ox 92 L 04/22/17 03:50 - Labs Result Diagrams: 04/21/17 21:35 04/21/17 23:59 Assessment & Plan - Assessment and Plan (Free Text) Assessment: 66 year old female with PMH HIV, ESRD, and HTN was brought to the [facility] ED on 04/22 from [facility] with complaints of altered mental status and hypoglycemia. Plan: Neuro: Patient was found to be in a state of altered mental status at half-way. Upon arriving at [facility] ED, patient was initially responsive only to noxious stimuli; unable to respond to questions. Patients normal mentation as per half-way is able to respond to questions with yes or no. As time passed in the ED patient became more responsive and able to answer her current location as being at the hospital making her AAO x1. Continue with neuro checks q4hr. Cardiology: Patient was found to be hypotensive at the half-way, which prompted the staff to check her blood glucose levels. After being admitted to the ED where she was given a 500 ml bolus of NS which brought her BP from 85/57 to 103/58. Will hold off on blood pressure medications for now, if patient becomes hypotensive again will give another 500 ml bolus of NS and evaluate from there. Will monitor patients Troponin levels. Ammonia levels pending, to r/o hepatoencephalopathy given patients AMS. Pulmonology: CXR shows possible consolidation on right lower lobe, cardiomegaly , and possible pleural effusion/edema on the left. Patient is currently at 96% O2 on 2 L nasal cannula. Will continue to monitor her oxygen levels. Will have CT chest w/o contrast to compare and see status of pulmonary edema s/p fluids. Endocrine: patient presented with hypoglycemia. Initially was found to have levels of 90 at the half-way where she was given D5 which brought her glucose levels to 200. Upon arriving at the ED her glucose went down to 29. After being given D50 in the ED her glucose increased to 200. Last finger stick revealed a level of 154. Patient is currently on D10 at an infusion rate of 75, will continue to monitor. Will refrain from use of insulin at this time despite diabetic history considering recent bouts of hypoglycemia. Will order TSH level to evaluate thyroid function. Renal: patient has a creatinine of 6.7 and is in ESRD. Patient anuric; hickman catheter placement revealed lack of urine flow. Patient goes to dialysis on Tuesday, Tuesday, and Tuesday. Patients BUN/Cr 34/6.7 as to be expected with dialysis. Hematology: H&H are normal but this is most likely d/t patient being dehydrated. WBC is currently 8.9, patients baseline WBC tends to be around 2- 3. Will continue to monitor. Increased in WBC has had a recent climb most likely due to colitis infection which was diagnosed while patient was in half-way. Repeat CBC ordered for comparison. Will continue to monitor coags. Gastrointestinal: Patient was recently known to have had a colitis infection, WBC 8.9 which is high in comparison to patients baseline. Colitis might be due to patients constipation. AST 89, Total Bilirubin 3.0. Will have CT of abdomen/ pelvis for further evaluation of possible etiology for infection. Will continue with Pepcid 20 mg daily for GI prophylaxis. Infectious disease: WBC 8.9, normal baseline 2-3. Severe sepsis due to worsened LFTs/coags and hypotension; meets criteria for HCAP given half-way resident. Serum lactic acid level 7.7 will continue to monitor levels s/p fluids. Patient has history of HIV, will continue with HIV medications. Blood and urine culture results pending; will treat empirically with IV vancomycin 1 g and IV Zosyn 2.275 mg until results received. Wound culture pending (stage 3- 4 sacral wound with concern for fistula formation), Procalcitonin levels pending. <Jose Ramon Mendoza - Last Filed: 04/22/17 06:57> Meds - Medications Medications: Current Medications Amiodarone HCl (Cordarone) 400 mg PO BID [facility] Aspirin (Ecotrin) 81 mg PO DAILY [facility] Cinacalcet (Sensipar) 30 mg PO DAILY [facility] Famotidine (Pepcid) 20 mg PO DAILY [facility] Vancomycin HCl (Vancomycin 1gm) 1 gm in 250 mls @ 167 mls/hr IVPB DAILY [facility] PRN Reason: Protocol Piperacillin Sod/Tazobactam Sod (Zosyn 2.25 Gm In 0.9% 100 Ml) 2.25 gm in 100 mls @ 100 mls/hr IVPB Q6 [facility] PRN Reason: Protocol Stop: 04/29/17 06:01 Dextrose (Dextrose 10% In Water) 500 mls @ 75 mls/hr IV .Q6H40M [facility] Midodrine (Proamatine) 5 mg PO DAILY [facility] Mirtazapine (Remeron) 15 mg PO DAILY [facility] Dolutegravir Sodium [Tivicay] 50 Mg ( Home Med) 50 mg PO BID [facility] Emtricitabine [ Emtriva] 200 Mg ( Home Med) 200 mg PO MWF [facility] Mexiletine Hcl [ Mexiletine Hcl] 150 Mg 150 mg PO TID [facility] Rilpivirine Hcl [ Edurant] 25 Mg (Home Med) 25 mg PO BRK [facility] Ondansetron HCl (Zofran Inj) 4 mg IVP Q6H PRN PRN Reason: Nausea/Vomiting Results - Vital Signs Recent Vital Signs: Last Vital Signs Temp 96.9 F L 04/22/17 03:10 Pulse 63 04/22/17 03:50 Resp 21 04/22/17 03:50 BP 103/58 L 04/22/17 00:13 Pulse Ox 92 L 04/22/17 03:50 - Labs Result Diagrams: 04/21/17 21:35 04/21/17 23:59 Labs: Laboratory Results - last 24 hr 04/22/17 05:20 PT 29.6 H INR 2.74 H APTT 39.8 H Attending/Attestation - Attestation I have personally seen and examined this patient.: Yes I have fully participated in the care of the patient.: Yes I have reviewed all pertinent clinical information: Yes Notes (Text): 04/22/17 06:51 I agree with the above mentioned note by Dr. Vergara with the addition/exception of the followin66 y/o female known to me from a previous hospital stay with a PMHx CAD, CVA, AICD, CHF, COPD, Afib, DM, ESRD on HD (MWF) was referred from [facility] for altered mental status. Upon reviewing the notes, the patient had been deteriorating over the past 1-2 days with no clear complaint of what was bothering her, but manifesting in lethargy and weakness that culminated into her becoming delirious and altered. The patient upon presentation was noted to be responsive only to noxious stimulus, however upon my examination she had received IVF hydration and IV Abx improving her to the point where she was AAOx1. She was also noted to be persistently hypoglycemic requiring a dextrose drip in order to maintain her blood glucose levels within normal range. She underwent a CT Scan of the Chest/abd/pelvis and is found to have a left sided loculated pleural effusion, right sided pleural effusion with atelectasis and acute cholecystitis. It's most likely that her acute cholecysitits is responsible for her severe sepsis and change in mentation. Will continue to treat her in the ICU with IV Abx and obtain a surgical evaluation as well. Case discussed at length with Dr. Torres in the ED labs and images reviewed personally total time of care: 50 minutes
[2017-04-22] MEDS ORDERED: Piperacillin/Tazobact 2.25gm 2.25 GM/100 ML BAG IVPB SCH (06:00)
[2017-04-22 06:19] LABS: BASO # 0.02 K/mm3 (0.0-2.0); BASO % 0.2 % (0.0-3.0); EOS % 0.1 % (1.5-5.0); GRAN # 8.28 (1.4-6.5); GRAN % 78.4 % (50.0-68.0); HEMOGLOBIN 13.6 gm/dL (12.0-16.0); LYMPH % 9.8 % (22.0-35.0); MEAN CELL VOLUME 106.9 fL (80.0-105.0); MEAN CORPUSCULAR HEMOGLOBIN 34.8 pg (25.0-35.0); MEAN CORPUSCULAR HGB CONC 32.5 g/dl (31.0-37.0); MEAN PLATELET VOLUME 11.7 fl (7.0-11.0); MONO # 1.2 (0.1-0.6); MONO % 11.5 % (1.0-6.0); PLATELET COUNT 183 10^3/uL (120.0-450.0); RBC 3.91 10^6/uL (3.5-6.1); RED CELL DISTRIBUTION WIDTH 22.1 % (11.5-14.5); WHITE BLOOD COUNT 10.6 10^3/ul (4.5-11.0)
[2017-04-22 06:26] LABS: INR 2.74 (0.93-1.08); PARTIAL THROMBOPLASTIN TIME 39.8 Seconds (23.7-30.8); PROTHROMBIN TIME 29.6 Seconds (9.9-11.8)
[2017-04-22 06:56] VITALS: TEMP 97
[2017-04-22] MEDS ORDERED: Dextrose 50% SYRINGE Inj (50 ml) ONE (07:55)
[2017-04-22 07:57] VITALS: O2SAT 99
[2017-04-22] MEDS ORDERED: Dextrose 50% SYRINGE Inj (50 ml) IVP ONE ×2 (08:00→11:31)
[2017-04-22 08:15] VITALS: BP 73/32; RESP 26
--- NOTE | 2017-04-22 08:33 | CP.PCM.CON ---
History of Present Illness - History of Present Illness History of Present Illness: General Surgery 66 year old female with PMH HIV, ESRD, and HTN was brought to the [facility] ED on 04/22 from [facility] with complaints of altered mental status and hypoglycemia. During examination patient had altered mentation, responsive to only noxious stimuli. Ejection fraction 30%. Surgery was consulted for abdominal pain and pericholic fluid surrounding his gallbladder around. Was not able to obtain a history due to altered mental state Unable to do review of systems PMHx: HIV, ESRD, HTD PSH: Defibrillator ALL: Sulfa Review of Systems - Constitutional Constitutional: As Per HPI Past Patient History - Infectious Disease Hx of Infectious Diseases: None - Tetanus Immunizations Tetanus Immunization: Unknown - Past Social History Smoking Status: Unknown If Ever Smoked - CARDIAC Hx Congestive Heart Failure: Yes (EF 30%.) Hx Hypertension: Yes - PULMONARY Hx Chronic Obstructive Pulmonary Disease (COPD): Yes - NEUROLOGICAL HX Cerebrovascular Accident: Yes - HEENT Hx HEENT Problems: Yes (glasses) - RENAL Hx Dialysis: Yes (m/w/f right arm access) Date of Last Dialysis Treatment: 02/18/17 - ENDOCRINE/METABOLIC Hx Diabetes Mellitus Type 2: Yes - HEMATOLOGICAL/ONCOLOGICAL Hx Blood Disorders: Yes Hx Blood Transfusions: No Hx Blood Transfusion Reaction: No - INTEGUMENTARY Hx Dermatological Problems: No - MUSCULOSKELETAL/RHEUMATOLOGICAL Hx Musculoskeletal Disorders: Yes Hx Falls: Yes (past) Hx Unsteady Gait: Yes Other/Comment: unsteady gait use quad cane - GASTROINTESTINAL Hx Gastrointestinal Disorders: No - GENITOURINARY/GYNECOLOGICAL Hx Genitourinary Disorders: Yes Hx Reproductive Disorders: No - PSYCHIATRIC Hx Psychophysiologic Disorder: No Hx Depression: No Hx Emotional Abuse: No Hx Physical Abuse: No Hx Substance Use: No - SURGICAL HISTORY Hx Cardiac Catheterization: Yes Hx Coronary Stent: Yes (x1 2002) Hx Open Heart Surgery: Yes (defibrillator 2002) Hx Tubal Ligation: Yes Other/Comment: defibrilator/pacemaker --tubal ligation --cardiac cath with stents-- cystoscopy,urethral dilatation, bilateral retrograde pyelogram, fistulagrams, abd wall hematoma exc abd wall mass 06/2014, r av fistula upper arm (ALL CONFIRMED AND FROM PAST TRIAGE) - ANESTHESIA Hx Anesthesia: No Meds Allergies/Adverse Reactions: Allergies Allergy/AdvReac Type Severity Reaction Status Date / Time sulfamethoxazole Allergy RASH Verified 05/15/17 01:28 [From Bactrim] trimethoprim [From Bactrim] Allergy RASH Verified 02/21/17 01:28 - Medications Medications: Current Medications Amiodarone HCl (Cordarone) 400 mg PO BID [facility] Aspirin (Ecotrin) 81 mg PO DAILY [facility] Cinacalcet (Sensipar) 30 mg PO DAILY [facility] Famotidine (Pepcid) 20 mg PO DAILY [facility] Vancomycin HCl (Vancomycin 1gm) 1 gm in 250 mls @ 167 mls/hr IVPB DAILY [facility] PRN Reason: Protocol Piperacillin Sod/Tazobactam Sod (Zosyn 2.25 Gm In 0.9% 100 Ml) 2.25 gm in 100 mls @ 100 mls/hr IVPB Q6 [facility] PRN Reason: Protocol Stop: 04/29/17 06:01 Last Admin: 04/22/17 06:41 Dose: 100 mls/hr Dextrose (Dextrose 10% In Water) 500 mls @ 75 mls/hr IV .Q6H40M [facility] Midodrine (Proamatine) 5 mg PO DAILY [facility] Mirtazapine (Remeron) 15 mg PO DAILY [facility] Dolutegravir Sodium [Tivicay] 50 Mg ( Home Med) 50 mg PO BID [facility] Emtricitabine [ Emtriva] 200 Mg ( Home Med) 200 mg PO MWF [facility] Mexiletine Hcl [ Mexiletine Hcl] 150 Mg 150 mg PO TID [facility] Rilpivirine Hcl [ Edurant] 25 Mg (Home Med) 25 mg PO BRK [facility] Ondansetron HCl (Zofran Inj) 4 mg IVP Q6H PRN PRN Reason: Nausea/Vomiting Physical Exam - Constitutional Appears: No Acute Distress - Eye Exam Eye Exam: absent: EOMI - ENT Exam ENT Exam: Mucous Membranes Moist - Respiratory Exam Respiratory Exam: Decreased Breath Sounds, Wheezes, NORMAL BREATHING PATTERN. absent: Accessory Muscle Use - Cardiovascular Exam Cardiovascular Exam: Tachycardia, +S1, +S2 - GI/Abdominal Exam GI & Abdominal Exam: Guarding, Normal Bowel Sounds, Soft, Tenderness Additional comments: Tender to palpation in RUQ, involuntary guarding. - Neurological Exam Neurological exam: Altered - Skin Skin Exam: Dry, Normal Color Results - Vital Signs Recent Vital Signs: Last Vital Signs Temp 97 F L 04/22/17 06:00 Pulse 73 04/22/17 08:01 Resp 26 H 07/14/17 08:01 BP 73/32 L 04/22/17 08:01 Pulse Ox 99 04/22/17 07:28 - Labs Result Diagrams: 04/22/17 05:20 04/21/17 23:59 Labs: Laboratory Results - last 24 hr 04/22/17 04/22/17 04/22/17 05:20 05:20 05:20 WBC 10.6 RBC 3.91 Hgb 13.6 Hct 41.8 MCV 106.9 H MCH 34.8 MCHC 32.5 RDW 22.1 H Plt Count 183 MPV 11.7 H Gran % 78.4 H Lymph % (Auto) 9.8 L Arroyo % (Auto) 11.5 H Eos % (Auto) 0.1 L Baso % (Auto) 0.2 Gran # 8.28 H Lymph # 1.0 L Arroyo # 1.2 H Eos # 0.0 Baso # 0.02 PT 29.6 H INR 2.74 H APTT 39.8 H Lactic Acid 7.7 H* Ammonia 04/22/17 05:20 WBC RBC Hgb Hct MCV MCH MCHC RDW Plt Count MPV Gran % Lymph % (Auto) Arroyo % (Auto) Eos % (Auto) Baso % (Auto) Gran # Lymph # Arroyo # Eos # Baso # PT INR APTT Lactic Acid Ammonia 40 H Assessment & Plan - Assessment and Plan (Free Text) Assessment: 66F with abdominal pain and pericystic fluid on CT Plan: - Ultrasound of RUQ - continue medical management - IVF - DVT ppx - repeat labs in AM D/W Dr. Ry Brooks PGY1 - Date & Time Date: 04/22/17 Time: 06:30
[2017-04-22] MEDS ORDERED: Sodium Chloride 0.9% 1,000 ML IV STA (08:34)
--- NOTE | 2017-04-22 09:02 | RAD ---
HISTORY: Sepsis Patient COMPARISON: 10/15/2016 FINDINGS: LUNGS: No active pulmonary disease. PLEURA: No significant pleural effusion identified, no pneumothorax apparent. CARDIOVASCULAR: Moderate cardiomegaly. Moderate vascular congestion OSSEOUS STRUCTURES: No significant abnormalities. VISUALIZED UPPER ABDOMEN: Normal. OTHER FINDINGS: Single lead pacemaker IMPRESSION: Moderate vascular congestion
[2017-04-22 09:08] VITALS: BMI 21.9
--- NOTE | 2017-04-22 09:08 | CP.PCM.PN ---
<KARLEE HOLDEN - Last Filed: 04/22/17 17:17> Subjective - Date & Time of Evaluation Date of Evaluation: 04/22/17 Time of Evaluation: 09:03 - Subjective Subjective: PGY1 ICU Progress Note: Pt seen and examined at bedside. Pt admitted to ICU overnight for severe sepsis 2/2 likely acute cholecystitis vs left loculated upper lobe effusion, AMS, and hypoglycemia. This AM, pt is more awake, not orientedx3. ROS thus limited. Objective - Vital Signs/Intake and Output Vital Signs (last 24 hours): Temp Pulse Resp BP Pulse Ox 97 F L 73 26 H 73/32 L 99 04/22/17 06:00 04/22/17 08:01 04/22/17 08:01 04/22/17 08:01 04/22/17 07:28 Intake and Output: 04/22/17 04/22/17 06:59 18:59 Intake Total 2600 Output Total 10 Balance 2590 - Medications Medications: Current Medications Aspirin (Ecotrin) 81 mg PO DAILY [facility] Cinacalcet (Sensipar) 30 mg PO DAILY [facility] Famotidine (Pepcid) 20 mg PO DAILY [facility] Vancomycin HCl (Vancomycin 1gm) 1 gm in 250 mls @ 167 mls/hr IVPB DAILY [facility] PRN Reason: Protocol Piperacillin Sod/Tazobactam Sod (Zosyn 2.25 Gm In 0.9% 100 Ml) 2.25 gm in 100 mls @ 100 mls/hr IVPB Q6 [facility] PRN Reason: Protocol Stop: 04/29/17 06:01 Last Admin: 04/22/17 06:41 Dose: 100 mls/hr Dextrose (Dextrose 10% In Water) 500 mls @ 75 mls/hr IV .Q6H40M [facility] Sodium Chloride (Sodium Chloride 0.9%) 1,000 mls @ 999 mls/hr IV .Q1H1M STA Stop: 04/22/17 09:34 Last Admin: 04/22/17 08:38 Dose: 999 mls/hr Midodrine (Proamatine) 5 mg PO DAILY [facility] Dolutegravir Sodium [Tivicay] 50 Mg ( Home Med) 50 mg PO BID [facility] Emtricitabine [ Emtriva] 200 Mg ( Home Med) 200 mg PO MWF [facility] Mexiletine Hcl [ Mexiletine Hcl] 150 Mg 150 mg PO TID [facility] Rilpivirine Hcl [ Edurant] 25 Mg (Home Med) 25 mg PO BRK [facility] Ondansetron HCl (Zofran Inj) 4 mg IVP Q6H PRN PRN Reason: Nausea/Vomiting - Labs Labs: 04/22/17 05:20 PT 29.6 Seconds (9.9-11.8) H 04/22/17 05:20 INR 2.74 (0.93-1.08) H 04/22/17 05:20 APTT 39.8 Seconds (23.7-30.8) H 04/22/17 05:20 - Constitutional Appears: No Acute Distress - Head Exam Head Exam: ATRAUMATIC, NORMOCEPHALIC - Eye Exam Eye Exam: PERRL - Respiratory Exam Additional comments: LLL crackles >RLL, otherwise, decreased breath sounds. - Cardiovascular Exam Cardiovascular Exam: RRR, +S1, +S2. absent: Gallop, Rubs, Murmur - GI/Abdominal Exam GI & Abdominal Exam: Soft, Hypoactive Bowel Sounds. absent: Firm, Rigid Additional comments: Rounded. obese female. - Extremities Exam Extremities Exam: absent: Calf Tenderness, Pedal Edema - Neurological Exam Neurological Exam: Alert, Awake. absent: Oriented x3 - Skin Skin Exam: Dry, Intact, Warm Assessment and Plan - Assessment and Plan (Free Text) Assessment: 66F with PMH HIV, ESRD on HD, HTN, CAD, CVA, admitted to ICU for severe sepsis 2 /2 likely acute choelcystitis vs left loculated upper lobe effusion, hypoglycemia, AMS. Poor surgical candidate, will f/u with IR for a possible efrain tube. Will discuss with family regarding the path of treatment for the patient. Plan: Neuro: More alert and awake this AM. Septic encephalopathy 2/2 likely acute cholecystitis? On ED presentation, pt only responded to noxious stimulus. Continue with neuro checks q4hr. Cardiology: Hypotensive on admission, s/p 500 cc x3 NS boluses, BP 103/58, C/w D10 75, pt reuqiring significant amount of IVF boluses, will cont to monitor. Hx of Afib, CHF, HTN. C/w amiodarone, ASA 81. EF 14% on previous admission echo. Resp: On NC, saturating well, cont to monitor. CT chest shows loculated L upper lobe effusion, mod r sided pleural effusion , cardiomegaly with small pericardial effusion. hilar lymphadenopathy. pulm HTN. Hx of COPD. Currently controlled. Endocrine: BS 29 on admission, hypoglcemic 90's x 2-3 days in [facility]. s/p 1 amp of D50, c/w D10@75. BG 57-95. Will monitor. Correct underlying etiology/ sepsis with IV abx, surgery? Will discuss with family for DNR/DNI. Hx of DM. On no home oral antidiabetics and insulin. F/u TSH Renal: Hx of ESRD, on HD (--), BUN/Cr 34/6.7, Na, K, Cl normal. Will hold dialysis today as per Nephro (Dr. Schulz). c/w Cinacalcet, Mexiletine. Hematology: Hgb 13.6, normal platelets. INR 2.74, Hx of afib. Will find out if patient takes Warfarin at [facility]. continue to monitor cbc, coags. Gastrointestinal: NPO. Acute cholecystitis as seen on CT, interval progression of ascites and liver enlargement. Surgery plans no interventions. F/u Abd US. if gallstones and cholecystitis visualized, will f/u with IR for possible efrain tube. Recent colitis infxn at [facility], continue with Pepcid 20 mg daily for GI prophylaxis. Infectious disease: Hx of HIV, recent colitis infxn, baseline wbc 3-4, today wbc 10.6, low temp 96.9F on admission, LA 7.7, hypotensive SBP 70's on admission. Met criteria for severe sepsis. C/w home antiretrovirals f/u blood cultures, urine cultures, procalcitonin s/p 1 dose of Vanc and Zosyn in ED ID c/s appreciated, start Merrem and c/w vanco. CT chest shows L loculated upper lobe effusion, right sided pleural effusion , small pericardial effusion, hilar LAD. CT abd shows GB wall thickening with pericholecytis inflammation-> acute efrain?, ascites and liver enlargement. wound culture pending (stage 3-4 sacral wound with concern for fistula formation) gi PPX: Pepcid DVT PPx: SCDs Dispo: poor prognosis. severe sepsis. Not adequately responding to fluids. will discuss with family for dnr/dni. Case seen and discussed with PGY2 and attending, Dr. Jacobson. Karlee Holden, PGY1 <Indira PATEL,Brooke H - Last Filed: 04/22/17 17:46> Objective - Vital Signs/Intake and Output Vital Signs (last 24 hours): Temp Pulse Resp BP Pulse Ox 97 F L 71 26 H 73/32 L 99 04/22/17 06:00 04/22/17 15:00 04/22/17 08:01 04/22/17 08:01 04/22/17 07:28 Intake and Output: 04/22/17 04/22/17 06:59 18:59 Intake Total 2600 Output Total 10 Balance 2590 - Medications Medications: Current Medications Aspirin (Ecotrin) 81 mg PO DAILY [facility] Last Admin: 04/22/17 12:31 Dose: Not Given Atovaquone (Mepron) 750 mg PO BID [facility] Last Admin: 04/22/17 12:31 Dose: Not Given Famotidine (Pepcid) 20 mg PO DAILY [facility] Last Admin: 04/22/17 12:32 Dose: Not Given Vancomycin HCl (Vancomycin 1gm) 1 gm in 250 mls @ 167 mls/hr IVPB DAILY [facility] PRN Reason: Protocol Last Admin: 04/22/17 11:59 Dose: 167 mls/hr Dextrose (Dextrose 10% In Water) 500 mls @ 75 mls/hr IV .Q6H40M [facility] Meropenem 1g/NS 100mL IVPB (Meropenem 1g/Ns 100ml Ivpb) 1 gm in 100 mls @ 100 mls/hr IVPB Q12 [facility] PRN Reason: Protocol Stop: 04/29/17 09:19 Last Admin: 04/22/17 14:05 Dose: 100 mls/hr Midodrine (Proamatine) 5 mg PO DAILY [facility] Last Admin: 04/22/17 12:32 Dose: Not Given Mexiletine Hcl [ Mexiletine Hcl] 150 Mg 0 mg PO TID [facility] Last Admin: 04/22/17 14:48 Dose: Not Given Emtricitabine [ Emtriva] 200 Mg ( Home Med) 0 mg PO MWF [facility] Rilpivirine Hcl [ Edurant] 25 Mg (Home Med) 0 mg PO BRK [facility] Dolutegravir Sodium [Tivicay] 50 Mg ( Home Med) 0 mg PO BID [facility] Ondansetron HCl (Zofran Inj) 4 mg IVP Q6H PRN PRN Reason: Nausea/Vomiting - Labs Labs: 04/22/17 05:20 PT 29.6 Seconds (9.9-11.8) H 04/22/17 05:20 INR 2.74 (0.93-1.08) H 04/22/17 05:20 APTT 39.8 Seconds (23.7-30.8) H 04/22/17 05:20 Attending/Attestation - Attestation I have personally seen and examined this patient.: Yes I have fully participated in the care of the patient.: Yes I have reviewed all pertinent clinical information, including history, physical exam and plan: Yes Notes (Text): 04/22/17 17:38 66 y/o F w/ AMS, Septic shock in the setting of CHF EF 15% , AICD, HIV, Renal failure on HD. CT abd/ US found to have acute cholycystitis CT chest also shows complicated pleural effusion questionable for infection. Surgery consulted and IR consulted for possible tube placement. IV NS hydration to keep MAP>65 . Vasopressors not indicated . Family discussion states that they want DNR/DNI and would consider comfort care. HIV on treatment at [place] ESRD no HD , not indicated for hd today. cc time 65 min
[2017-04-22] MEDS ORDERED: Meropenem 1g/NS 100mL IVPB 1 GM/100 ML PIGGYBACK IVPB SCH (09:18)
--- NOTE | 2017-04-22 09:25 | CARD ---
APPROVED REPORT EKG Measurement Heart [id number] <Conclusion> Suspect arm lead reversal, interpretation assumes no reversal Atrial fibrillation Nonspecific intraventricular block Lateral infarct, age undetermined Abnormal ECG
--- NOTE | 2017-04-22 09:25 | CP.PCM.CON ---
History of Present Illness - History of Present Illness History of Present Illness: 66 year old female with PMH of HIV, non-compliant with meds (follows Dr. Reeder at [facility]3] but does not recall latest CD4 count or virus load), ESRD on HD with right A-V fistula, atrial fibrillation, asthma, cerebrovascular accident, peripheral vascular disease, coronary artery disease S/P cardiac catheterization, S/P AICD placement for cardiomyopathy with low EF was [facility] because of altered mental status and episodes of hypoglycemia. She was also noted to have low blood pressure, but there was no note of fever, no vomiting, no convulsions, no loss of consciousness, no diarrhea. In the ED, she was noted to be still hypotensive and was sent to the ICU for closer observation and monitoring. CT scan is showing acute cholecystitis. Infectious diseases consult is requested to further evaluate and manage. Review of Systems - Review of Systems Systems not reviewed;Unavailable: Altered Mental Status Past Patient History - Infectious Disease Hx of Infectious Diseases: None - Tetanus Immunizations Tetanus Immunization: Unknown - Past Social History Smoking Status: Unknown If Ever Smoked - CARDIAC Hx Congestive Heart Failure: Yes (EF 30%.) Hx Hypertension: Yes - PULMONARY Hx Chronic Obstructive Pulmonary Disease (COPD): Yes - NEUROLOGICAL HX Cerebrovascular Accident: Yes - HEENT Hx HEENT Problems: Yes (glasses) - RENAL Hx Dialysis: Yes (m/w/f right arm access) Date of Last Dialysis Treatment: 02/18/17 - ENDOCRINE/METABOLIC Hx Diabetes Mellitus Type 2: Yes - HEMATOLOGICAL/ONCOLOGICAL Hx Blood Disorders: Yes Hx Blood Transfusions: No Hx Blood Transfusion Reaction: No - INTEGUMENTARY Hx Dermatological Problems: No - MUSCULOSKELETAL/RHEUMATOLOGICAL Hx Musculoskeletal Disorders: Yes Hx Falls: Yes (past) Hx Unsteady Gait: Yes Other/Comment: unsteady gait use quad cane - GASTROINTESTINAL Hx Gastrointestinal Disorders: No - GENITOURINARY/GYNECOLOGICAL Hx Genitourinary Disorders: Yes Hx Reproductive Disorders: No - PSYCHIATRIC Hx Psychophysiologic Disorder: No Hx Depression: No Hx Emotional Abuse: No Hx Physical Abuse: No Hx Substance Use: No - SURGICAL HISTORY Hx Cardiac Catheterization: Yes Hx Coronary Stent: Yes (x1 2002) Hx Open Heart Surgery: Yes (defibrillator 2002) Hx Tubal Ligation: Yes Other/Comment: defibrilator/pacemaker --tubal ligation --cardiac cath with stents-- cystoscopy,urethral dilatation, bilateral retrograde pyelogram, fistulagrams, abd wall hematoma exc abd wall mass 06/2014, r av fistula upper arm (ALL CONFIRMED AND FROM PAST TRIAGE) - ANESTHESIA Hx Anesthesia: No Meds Allergies/Adverse Reactions: Allergies Allergy/AdvReac Type Severity Reaction Status Date / Time sulfamethoxazole Allergy RASH Verified 02/21/17 01:28 [From Bactrim] trimethoprim [From Bactrim] Allergy RASH Verified 02/21/17 01:28 - Medications Medications: Current Medications Amiodarone HCl (Cordarone) 400 mg PO BID [facility] Aspirin (Ecotrin) 81 mg PO DAILY [facility] Cinacalcet (Sensipar) 30 mg PO DAILY [facility] Famotidine (Pepcid) 20 mg PO DAILY [facility] Vancomycin HCl (Vancomycin 1gm) 1 gm in 250 mls @ 167 mls/hr IVPB DAILY [facility] PRN Reason: Protocol Piperacillin Sod/Tazobactam Sod (Zosyn 2.25 Gm In 0.9% 100 Ml) 2.25 gm in 100 mls @ 100 mls/hr IVPB Q6 [facility] PRN Reason: Protocol Stop: 04/29/17 06:01 Dextrose (Dextrose 10% In Water) 500 mls @ 75 mls/hr IV .Q6H40M [facility] Midodrine (Proamatine) 5 mg PO DAILY [facility] Mirtazapine (Remeron) 15 mg PO DAILY [facility] Dolutegravir Sodium [Tivicay] 50 Mg ( Home Med) 50 mg PO BID [facility] Emtricitabine [ Emtriva] 200 Mg ( Home Med) 200 mg PO MWF [facility] Mexiletine Hcl [ Mexiletine Hcl] 150 Mg 150 mg PO TID [facility] Rilpivirine Hcl [ Edurant] 25 Mg (Home Med) 25 mg PO BRK [facility] Ondansetron HCl (Zofran Inj) 4 mg IVP Q6H PRN PRN Reason: Nausea/Vomiting Physical Exam - Constitutional Appears: Other (weak-looking, somewhat lethargic) - Neck Exam Neck exam: Negative for: Meningismus - Respiratory Exam Respiratory Exam: Decreased Breath Sounds - Cardiovascular Exam Cardiovascular Exam: +S1, +S2 - GI/Abdominal Exam GI & Abdominal Exam: Soft, Tenderness (some tenderness noted on the upper abdominal area). absent: Distended, Firm, Rebound, Rigid Results - Vital Signs Recent Vital Signs: Last Vital Signs Temp 96.9 F L 04/22/17 03:10 Pulse 63 04/22/17 03:50 Resp 21 04/22/17 03:50 BP 103/58 L 04/22/17 00:13 Pulse Ox 92 L 04/22/17 03:50 - Labs Result Diagrams: 04/22/17 05:20 04/21/17 23:59 Assessment & Plan - Assessment and Plan (Free Text) Plan: Assessment Consider severe sepsis with hypotension and altered mental status due to acute cholecystitis history of transverse colon colitis HIV, non-compliant with antiretroviral therapy (follows Dr. Reeder at [facility]3]) - [place] CD[place] [facility] [place] which was 158 (19%) history of Cdiff associated diarrhea history of pancreatitis ESRD on hemodialysis Atrial fibrillation Asthma peripheral vascular disease coronary artery disease S/P cardiac catheterization, S/P AICD placement for cardiomyopathy with low EF cerebrovascular accident Plan will start patient on Merrem and Vancomycin pending blood cx, plan of surgery will continue ART (patient takes Emtricitabine, Dolutegravir, Edurant) and Mepron patient is in critical condition will monitor clinically
--- NOTE | 2017-04-22 09:33 | CP.PCM.CON ---
History of Present Illness - History of Present Illness History of Present Illness: 66 year old female with PMH ESRD, HIV, ESRD, and HTN that was brought to ED [place] for altered mental status and hypoglycemia. She was found to be hypotensive and sepsis protocol was initiated and she was admitted to ICU for further care where she has been receiving fluid boluses for hypotension, started on abx, and had surgery consulted for a ? cholecystitis. She is otherwise unable to provide any further hx due to altered mental status. ROS: a full detailed ROS is uanble to be performed as pt altered famhx: unable to to obtain due to altered status sochx: unable to obtain due to altered status meds: reviewed: all:bactrim pmh: esrd, htn, hiv Past Patient History - Infectious Disease Hx of Infectious Diseases: None - Tetanus Immunizations Tetanus Immunization: Unknown - Past Social History Smoking Status: Unknown If Ever Smoked - CARDIAC Hx Congestive Heart Failure: Yes (EF 30%.) Hx Hypertension: Yes - PULMONARY Hx Chronic Obstructive Pulmonary Disease (COPD): Yes - NEUROLOGICAL HX Cerebrovascular Accident: Yes - HEENT Hx HEENT Problems: Yes (glasses) - RENAL Hx Dialysis: Yes (m/w/f right arm access) Date of Last Dialysis Treatment: 02/18/17 - ENDOCRINE/METABOLIC Hx Diabetes Mellitus Type 2: Yes - HEMATOLOGICAL/ONCOLOGICAL Hx Blood Disorders: Yes Hx Blood Transfusions: No Hx Blood Transfusion Reaction: No - INTEGUMENTARY Hx Dermatological Problems: No - MUSCULOSKELETAL/RHEUMATOLOGICAL Hx Musculoskeletal Disorders: Yes Hx Falls: Yes (past) Hx Unsteady Gait: Yes Other/Comment: unsteady gait use quad cane - GASTROINTESTINAL Hx Gastrointestinal Disorders: No - GENITOURINARY/GYNECOLOGICAL Hx Genitourinary Disorders: Yes Hx Reproductive Disorders: No - PSYCHIATRIC Hx Psychophysiologic Disorder: No Hx Depression: No Hx Emotional Abuse: No Hx Physical Abuse: No Hx Substance Use: No - SURGICAL HISTORY Hx Cardiac Catheterization: Yes Hx Coronary Stent: Yes (x1 2002) Hx Open Heart Surgery: Yes (defibrillator 2002) Hx Tubal Ligation: Yes Other/Comment: defibrilator/pacemaker --tubal ligation --cardiac cath with stents-- cystoscopy,urethral dilatation, bilateral retrograde pyelogram, fistulagrams, abd wall hematoma exc abd wall mass 06/2014, r av fistula upper arm (ALL CONFIRMED AND FROM PAST TRIAGE) - ANESTHESIA Hx Anesthesia: No Meds Allergies/Adverse Reactions: Allergies Allergy/AdvReac Type Severity Reaction Status Date / Time sulfamethoxazole Allergy RASH Verified 02/21/17 01:28 [From Bactrim] trimethoprim [From Bactrim] Allergy RASH Verified 02/21/17 01:28 - Medications Medications: Current Medications Aspirin (Ecotrin) 81 mg PO DAILY [facility] Atovaquone (Mepron) 750 mg PO BID [facility] Cinacalcet (Sensipar) 30 mg PO DAILY [facility] Famotidine (Pepcid) 20 mg PO DAILY [facility] Vancomycin HCl (Vancomycin 1gm) 1 gm in 250 mls @ 167 mls/hr IVPB DAILY [facility] PRN Reason: Protocol Dextrose (Dextrose 10% In Water) 500 mls @ 75 mls/hr IV .Q6H40M [facility] Sodium Chloride (Sodium Chloride 0.9%) 1,000 mls @ 999 mls/hr IV .Q1H1M [facility] Stop: 04/22/17 09:34 Last Admin: 04/22/17 08:38 Dose: 999 mls/hr Meropenem 1g/NS 100mL IVPB (Meropenem 1g/Ns 100ml Ivpb) 1 gm in 100 mls @ 100 mls/hr IVPB Q12 [facility] PRN Reason: Protocol Stop: 04/29/17 09:19 Midodrine (Proamatine) 5 mg PO DAILY [facility] Dolutegravir Sodium [Tivicay] 50 Mg ( Home Med) 50 mg PO BID [facility] Emtricitabine [ Emtriva] 200 Mg ( Home Med) 200 mg PO MWF [facility] Mexiletine Hcl [ Mexiletine Hcl] 150 Mg 150 mg PO TID [facility] Rilpivirine Hcl [ Edurant] 25 Mg (Home Med) 25 mg PO BRK [facility] Ondansetron HCl (Zofran Inj) 4 mg IVP Q6H PRN PRN Reason: Nausea/Vomiting Physical Exam - Constitutional Appears: Toxic - Head Exam Head Exam: ATRAUMATIC - Eye Exam Additional comments: non ictereic - ENT Exam ENT Exam: Mucous Membranes Dry - Neck Exam Neck exam: Positive for: Normal Inspection - Respiratory Exam Additional comments: slightly dec at bases - Cardiovascular Exam Cardiovascular Exam: +S1, +S2 - GI/Abdominal Exam GI & Abdominal Exam: Normal Bowel Sounds Additional comments: no r/g - Extremities Exam Additional comments: no edema - Neurological Exam Additional comments: opens eyes to voice not oriented - Psychiatric Exam Additional comments: altered - Skin Additional comments: no rash Results - Vital Signs Recent Vital Signs: Last Vital Signs Temp 97 F L 04/22/17 06:00 Pulse 73 04/22/17 08:01 Resp 26 H 04/22/17 08:01 BP 73/32 L 04/22/17 08:01 Pulse Ox 99 04/22/17 07:28 - Labs Result Diagrams: 04/22/17 05:20 04/21/17 23:59 Labs: Laboratory Results - last 24 hr 04/22/17 04/22/17 04/22/17 03:24 04:06 05:20 WBC 10.6 RBC 3.91 Hgb 13.6 Hct 41.8 MCV 106.9 H MCH 34.8 MCHC 32.5 RDW 22.1 H Plt Count 183 MPV 11.7 H Gran % 78.4 H Lymph % (Auto) 9.8 L Bacon % (Auto) 11.5 H Eos % (Auto) 0.1 L Baso % (Auto) 0.2 Gran # 8.28 H Lymph # 1.0 L Bacon # 1.2 H Eos # 0.0 Baso # 0.02 PT INR APTT POC Glucose (mg/dL) 95 86 Lactic Acid Ammonia 04/22/17 04/22/17 04/22/17 05:20 05:20 05:20 WBC RBC Hgb Hct MCV MCH MCHC RDW Plt Count MPV Gran % Lymph % (Auto) Bacon % (Auto) Eos % (Auto) Baso % (Auto) Gran # Lymph # Bacon # Eos # Baso # PT 29.6 H INR 2.74 H APTT 39.8 H POC Glucose (mg/dL) Lactic Acid 7.7 H* Ammonia 40 H 04/22/17 04/22/17 05:24 07:52 WBC RBC Hgb Hct MCV MCH MCHC RDW Plt Count MPV Gran % Lymph % (Auto) Bacon % (Auto) Eos % (Auto) Baso % (Auto) Gran # Lymph # Bacon # Eos # Baso # PT INR APTT POC Glucose (mg/dL) 74 57 L Lactic Acid Ammonia Assessment & Plan - Assessment and Plan (Free Text) Assessment: ESRD/ Anemia/ HIV/ Sepsis / ? cholecytstitis/ CHF / R pleural effusion Plan: ESRD: holding hd today - too unstable and no emergent indications at this time, still getting resucsitation w/ IVF R pleural effusion: may need to consider thora - dialysis unlikely to assist w/ reducing this hiv: primary team meds: dose abx for esrd , change vanc to be given after dialysis treatments anemia: no need for ADI secondary hyperpara: will d/c sensipar as ca is already quite low attempted to contact emergency contact to discuss care unable to
--- NOTE | 2017-04-22 09:45 | RAD ---
HISTORY: evaluate for worsening pulmonary edema COMPARISON: 04/21/2017 FINDINGS: LUNGS: No active pulmonary disease. PLEURA: No significant pleural effusion identified, no pneumothorax apparent. CARDIOVASCULAR: Moderate to severe cardiomegaly. Moderate vascular congestion with no significant change OSSEOUS STRUCTURES: No significant abnormalities. VISUALIZED UPPER ABDOMEN: Normal. OTHER FINDINGS: None. IMPRESSION: Moderate to severe cardiomegaly. Moderate vascular congestion with no significant change
[2017-04-22] MEDS ORDERED: EMTRICITABINE 200 MG PO SCH (10:00)
[2017-04-22] MEDS ORDERED: Vancomycin 1gm in NS 250ml 1 GM/250 ML BAG IVPB SCH (10:00)
[2017-04-22] MEDS ORDERED: MEXILETINE HCL 150 MG PO SCH ×4 (10:00→14:00)
[2017-04-22] MEDS ORDERED: Dolutegravir Sodium [Tivicay] 50 mg (HOME MED) PO SCH ×3 (10:00→18:00)
[2017-04-22] MEDS ORDERED: Atovaquone 750 mg/5 ml Susp UD PO SCH (10:00)
--- NOTE | 2017-04-22 11:41 | US ---
HISTORY: eval efrain COMPARISON: 04/23/2016 TECHNIQUE: Sonographic evaluation of the right upper quadrant of the abdomen. FINDINGS: LIVER: Measures 17.5 x 23.9 cm in length. Hepatopedal blood flow. Fatty infiltration manifest ultrasonographically as increased echogenicity of the liver parenchyma. No mass. No intrahepatic bile duct dilatation. GALLBLADDER: Collapsed gallbladder, gallbladder wall thickening maximum thickness 5.8 mm. No evidence of sludge, polyps, sonographic Modi's sign. COMMON BILE DUCT: Measures 4.2 mm. No stones. No dilatation. PANCREAS: Unremarkable as visualized. No mass. No ductal dilatation. RIGHT KIDNEY: Measures 2.7 x 7.2 cm in length. Atrophic right kidney similar to that seen previously AORTA: No aneurysmal dilatation. IVC: Unremarkable. OTHER FINDINGS: None . IMPRESSION: 1. Hepatomegaly, hepatic steatosis. 2. Partially collapsed gallbladder, thickening gallbladder wall. 3. Atrophic right kidney consistent with clinical history of renal failure. No significant interval change compared to the prior examination(s).
--- NOTE | 2017-04-22 12:53 | CP.PCM.CON ---
History of Present Illness - History of Present Illness History of Present Illness: Palliative consult requested by Dr Brooke Marcus notified Reason: Goals of care 66 year old female sent from [facility] with hypotension ,hypoglycemia and altered mental status.Patient was obtunded upon arrival to ED. CT findings;left sided loculated TE pleural effusion, moderate right pleural effusion with atelectasis, cardiomegaly with small pericardial effusion, pulmonary hypertension, hilar lymphadenopathy. Gall bladder US revealed hepatomegaly, steatosis, partially collapsed GB with thickening of wall. Ammonia level 40, anemia, leukopenia. PMHx: HIV, ESRD dialysis dependent,HTN, cardiomyopathy,CAD s/p stent, ICD placement, COPD, pancreatitis. Social History:Non smoker, no alcohol or drug use. Advance Care Planning: The patient does not have an Advance Directive. Review of Systems: As per HPI, unable to obtain as patient is altered and non verbal. Past Patient History - Infectious Disease Hx of Infectious Diseases: None - Tetanus Immunizations Tetanus Immunization: Unknown - Past Social History Smoking Status: Unknown If Ever Smoked - CARDIAC Hx Congestive Heart Failure: Yes (EF 30%.) Hx Hypertension: Yes - PULMONARY Hx Chronic Obstructive Pulmonary Disease (COPD): Yes - NEUROLOGICAL HX Cerebrovascular Accident: Yes - HEENT Hx HEENT Problems: Yes (glasses) - RENAL Hx Dialysis: Yes (m/w/f right arm access) Date of Last Dialysis Treatment: 02/18/17 - ENDOCRINE/METABOLIC Hx Diabetes Mellitus Type 2: Yes - HEMATOLOGICAL/ONCOLOGICAL Hx Blood Disorders: Yes Hx Blood Transfusions: No Hx Blood Transfusion Reaction: No - INTEGUMENTARY Hx Dermatological Problems: No - MUSCULOSKELETAL/RHEUMATOLOGICAL Hx Musculoskeletal Disorders: Yes Hx Falls: Yes (past) Hx Unsteady Gait: Yes Other/Comment: unsteady gait use quad cane - GASTROINTESTINAL Hx Gastrointestinal Disorders: No - GENITOURINARY/GYNECOLOGICAL Hx Genitourinary Disorders: Yes Hx Reproductive Disorders: No - PSYCHIATRIC Hx Psychophysiologic Disorder: No Hx Depression: No Hx Emotional Abuse: No Hx Physical Abuse: No Hx Substance Use: No - SURGICAL HISTORY Hx Cardiac Catheterization: Yes Hx Coronary Stent: Yes (x1 2002) Hx Open Heart Surgery: Yes (defibrillator 2002) Hx Tubal Ligation: Yes Other/Comment: defibrilator/pacemaker --tubal ligation --cardiac cath with stents-- cystoscopy,urethral dilatation, bilateral retrograde pyelogram, fistulagrams, abd wall hematoma exc abd wall mass 06/2014, r av fistula upper arm (ALL CONFIRMED AND FROM PAST TRIAGE) - ANESTHESIA Hx Anesthesia: No Meds Allergies/Adverse Reactions: Allergies Allergy/AdvReac Type Severity Reaction Status Date / Time sulfamethoxazole Allergy RASH Verified 02/21/17 01:28 [From Bactrim] trimethoprim [From Bactrim] Allergy RASH Verified 02/21/17 01:28 - Medications Medications: Current Medications Aspirin (Ecotrin) 81 mg PO DAILY [facility] Last Admin: 04/22/17 12:31 Dose: Not Given Atovaquone (Mepron) 750 mg PO BID [facility] Last Admin: 04/22/17 12:31 Dose: Not Given Famotidine (Pepcid) 20 mg PO DAILY [facility] Last Admin: 04/22/17 12:32 Dose: Not Given Vancomycin HCl (Vancomycin 1gm) 1 gm in 250 mls @ 167 mls/hr IVPB DAILY [facility] PRN Reason: Protocol Last Admin: 04/22/17 11:59 Dose: 167 mls/hr Dextrose (Dextrose 10% In Water) 500 mls @ 75 mls/hr IV .Q6H40M [facility] Meropenem 1g/NS 100mL IVPB (Meropenem 1g/Ns 100ml Ivpb) 1 gm in 100 mls @ 100 mls/hr IVPB Q12 [facility] PRN Reason: Protocol Stop: 04/29/17 09:19 Midodrine (Proamatine) 5 mg PO DAILY [facility] Last Admin: 04/22/17 12:32 Dose: Not Given Mexiletine Hcl [ Mexiletine Hcl] 150 Mg 0 mg PO TID [facility] Emtricitabine [ Emtriva] 200 Mg ( Home Med) 0 mg PO MWF [facility] Rilpivirine Hcl [ Edurant] 25 Mg (Home Med) 0 mg PO BRK [facility] Dolutegravir Sodium [Tivicay] 50 Mg ( Home Med) 0 mg PO BID [facility] Ondansetron HCl (Zofran Inj) 4 mg IVP Q6H PRN PRN Reason: Nausea/Vomiting Physical Exam - Constitutional Appears: Agitated, Chronically Ill - Eye Exam Eye Exam: Normal appearance, PERRL - ENT Exam ENT Exam: Mucous Membranes Dry, Normal Oropharynx - Respiratory Exam Respiratory Exam: Decreased Breath Sounds - Cardiovascular Exam Cardiovascular Exam: Tachycardia, +S1, +S2 - GI/Abdominal Exam GI & Abdominal Exam: Normal Bowel Sounds, Soft - Exam Additional comments: anuric - Skin Skin Exam: Dry, Pallor Results - Vital Signs Recent Vital Signs: Last Vital Signs Temp 97 F L 04/22/17 06:00 Pulse 68 04/22/17 11:00 Resp 26 H 04/22/17 08:01 BP 73/32 L 04/22/17 08:01 Pulse Ox 99 04/22/17 07:28 - Labs Result Diagrams: 04/22/17 05:20 04/21/17 23:59 Labs: Laboratory Results - last 24 hr 04/22/17 04/22/17 04/22/17 03:24 04:06 05:20 WBC 10.6 RBC 3.91 Hgb 13.6 Hct 41.8 MCV 106.9 H MCH 34.8 MCHC 32.5 RDW 22.1 H Plt Count 183 MPV 11.7 H Gran % 78.4 H Lymph % (Auto) 9.8 L [place] % (Auto) 11.5 H Eos % (Auto) 0.1 L Baso % (Auto) 0.2 Gran # 8.28 H Lymph # 1.0 L [place] # 1.2 H Eos # 0.0 Baso # 0.02 PT INR APTT POC Glucose (mg/dL) 95 86 Lactic Acid Ammonia TSH 3rd Generation 04/22/17 04/22/17 04/22/17 05:20 05:20 05:20 WBC RBC Hgb Hct MCV MCH MCHC RDW Plt Count MPV Gran % Lymph % (Auto) [place] % (Auto) Eos % (Auto) Baso % (Auto) Gran # Lymph # [place] # Eos # Baso # PT 29.6 H INR 2.74 H APTT 39.8 H POC Glucose (mg/dL) Lactic Acid 7.7 H* Ammonia 40 H TSH 3rd Generation 04/22/17 04/22/17 04/22/17 05:24 07:52 08:45 WBC RBC Hgb Hct MCV MCH MCHC RDW Plt Count MPV Gran % Lymph % (Auto) [place] % (Auto) Eos % (Auto) Baso % (Auto) Gran # Lymph # [place] # Eos # Baso # PT INR APTT POC Glucose (mg/dL) 74 57 L Lactic Acid Ammonia TSH 3rd Generation 6.44 H 04/22/17 04/22/17 09:34 11:30 WBC RBC Hgb Hct MCV MCH MCHC RDW Plt Count MPV Gran % Lymph % (Auto) [place] % (Auto) Eos % (Auto) Baso % (Auto) Gran # Lymph # [place] # Eos # Baso # PT INR APTT POC Glucose (mg/dL) 92 62 L Lactic Acid Ammonia TSH 3rd Generation Assessment & Plan - Assessment and Plan (Free Text) Assessment: 66 year old female admitted with sepsis, anemia,hypoglycemia, hypotension, bilateral pleural efsuons, cholecystitis,cardiomegaly, ESRD. Patient's son and daughter at bedside. Dr. Brooke Jacobson spoke with family about the patient's medical situation and prognosis. Patient had previously expressed to her daughter that she did not want CPR/intubation/mechanical ventilation. Both daughter and son are agreeable to DNR/DNI. Family understands that patient is gravely ill. Option for transition to comfort care also discussed with family. Questions answered. Family wants to try conservative supportive care at this time. Plan: Palliative support,advance care planning
[2017-04-22 15:19] VITALS: PULSE 71
[2017-04-22] MEDS ORDERED: Midazolam 2 MG/2 ML VIAL ONE (15:23)
--- NOTE | 2017-04-22 16:38 | CP.PCM.PRO ---
<Yasmin Deleon - Last Filed: 04/22/17 16:44> Pronouncement of Note - Clinical Findings Physical Exam: No Response Verbal/Painful Stimuli, Absent Peripheral Pulses{ Carotid & Femoral}, Absent Heart & Breath Sounds, No Pupillary Light Reflex, No Corneal Reflex, Pupils Fixed & Dilated, Absence of Vital Signs - Pronouncement Time Time of Pronouncement of : 16:30 - Notifications Pronouncement Notifications: Family Notified, Atending Notified - [place] Certificate Additional Comments: Patient went to IR suite, found to have stopped breathing on the table. Patient was transferred back to ICU. She was found to be pulseless with paced heart beat (patient has AICD). Pulses were not palpitated or found via doppler, no breathsounds ausculated, no reflexes. <Indira PATEL,Brooke Esquivel - Last Filed: 04/22/17 17:01> Attending/Attestation - Attestation I have personally seen and examined this patient.: Yes I have fully participated in the care of the patient.: Yes I have reviewed all pertinent clinical information: Yes Notes (Text): 04/22/17 17:01 Pacemaker rhythm noted. No breath sounds or palpable pulses. No cn functions noted. Family contacted by IR when patient was pulseless.
--- NOTE | 2017-04-22 21:45 | HP ---
HISTORY OF PRESENT ILLNESS: I know Newton very well for many years of taking care of her in and out of many hospitals and nursing homes and subacute rehabs. I was suppose to have a meeting today with family about making her hospice patient at [facility], but apparently last night she had a change in mentation with low blood sugar and sent to the emergency room. PAST MEDICAL HISTORY: She has a past medical history of diabetes, HIV, pneumonia, hemiplegia from a stroke, end-stage renal disease on hemodialysis, congestive heart failure, hypertension, CVA. She had multiple transfusions in the past, multiple falls, unsteady gait. She has cardiac cath with CAD and stents, defibrillator, tubal ligation, urethral dilatation, bilateral retrograde pyelograms, fistulogram, abdominal wall hematoma excised, right AV fistula. FAMILY HISTORY: Hypertension and diabetes in the family. SOCIAL HISTORY: She used to smoke. No alcohol. No drugs. ALLERGIES: SHE IS ALLERGIC TO SULFA AND BACTRIM. MEDICATIONS: She takes Tivicay, Emtriva, Imodium, Zofran, Flagyl, Pacerone, aspirin, Sensipar, Colcrys, Pepcid, Lopressor, mexiletine, ProAmatine, Remeron, Nepro, and Ambien. She is out of it mentally, not responding to questions. PHYSICAL EXAMINATION: VITAL SIGNS: She had a temperature 97, pulse 68, blood pressure 105/49, respiratory rate 17 and 97% O2 sat on oxygen. HEENT: Head is atraumatic, normocephalic. Extraocular muscles intact. Throat is dry. NECK: Supple. HEART: Regular rate. LUNGS: Decreased breath sounds, poor inspiration but clear. ABDOMEN: Soft, nontender. Positive bowel sounds. No guarding. No rebound. No CVA tenderness. EXTREMITIES: No edema. She is weak. NEUROLOGIC: Not alert to talk at this time. SKIN: Warm and dry. She is lethargic. LABORATORY DATA: She has multiple tests done. She has 141 sodium, potassium 3.6, BUN 34, creatinine 6.7 on dialysis. Sugar was 187. Calcium 7.3, phosphorus is 6.1, magnesium 2.1. AST is 89, ALT is 19, alkaline phosphatase is 118. Troponin-1 0.03. Total protein is 8.3. INR is 2.74. White count is 10.6, hemoglobin 13.6, hematocrit is 41.8, platelets are 183. She had a CAT scan of the abdomen and pelvis which showed loculated left upper lobe effusion, moderate right side pleural effusion, cardiomegaly, pulmonary hypertension. PLAN: She is here with change in mentation, sepsis probable, has consult with Infectious Disease. Surgery and Renal will follow closely. She has a very poor prognosis. Yossi Marcus DO MTDD
[2017-04-23 16:33] LABS: % CD4 (T HELPER CELL) 20 Percent (30-61); % CD8 (SUPPRESSOR T CELL) 64 Percent (12-42); ABSOLUTE CD4 CELLS 305 Cells/mcL (490-1740); ABSOLUTE CD8 CELLS 999 Cells/mcL (180-1170); ABSOLUTE LYMPHOCYTES 1551 Cells/mcL (850-3900); HELPER/SUPPRESSOR RATIO 0.31 Ratio (0.86-5.00)
[2017-04-25] MEDS ORDERED: EMTRICITABINE 200 MG PO SCH ×4 (10:00)
--- NOTE | 2017-04-26 16:15 | PQF CHF ---
04/26/17 Dr. Marcus CHF is documented throughout this record. Please indicate type and severity, as listed below. Thank you. Clarification of your documentation is requested to better reflect the severity of illness and intensity of treatment of your patient. Indicators present [] Diagnosis of CHF and/or history of CHF [] BNP > 200 [] Imaging Finding of Pulmonary Edema /Pleural Effusions [] Fluid/Volume Overload [] Pitting edema [] Ejection Fraction < 40% (Indicative of Systolic Heart Failure) [] Ejection Fraction > 40% (Indicative of Diastolic Heart Failure) [] Dyspnea / Orthopenea / Paroxysmal Nocturnal Dyspnea [] Other: Location in the medical record that reflects the above clinical findings: [] Treatment Provided: [] PHYSICIAN'S RESPONSE Based on your medical judgment of the clinical indicators outlined above, are you treating this patient for a known or suspected: [] Acute CHF [] Systolic [] Diastolic [] Combined [xx] Chronic CHF [xxx] Systolic [] Diastolic [] Combined [] Acute on Chronic CHF []Systolic [] Diastolic [] Combined [] CHF due hypertension [] Acute systolic []Chronic systolic [] Acute/ chronic systolic [] Other, please indicate: [] [] If Unable to Determine, please check the box, sign and date. Present On Admission (POA) Indicator: [] Present at the time of admission [] Not present at the time of admission [] Clinically Undetermined In responding to this query, please exercise your independent professional judgment. The fact that a question is asked does not imply that any particular answer is desired or expected. Thank you for your clarification on this documentation. If you have any questions please call:[ ] * Thank you, [ ] supply aide SABINE
== END 2017-04-22 16:30 | DRG 871 ==
LOC: ED 21:34 → ERH 04-22 01:30 → CCU 04-22 03:09
PROVIDERS: ADMIT Family Medicine; ATTEND Family Medicine
DX: A41.9 Sepsis, unspecified organism (principal); J18.9 Pneumonia, unspecified organism; R65.21 Severe sepsis with septic shock; I13.2 Hypertensive heart and chronic kidney disease with heart failure and with stage 5 chronic kidney disease, or end stage renal disease; I31.3 Pericardial effusion (noninflammatory); N18.6 End stage renal disease; I42.9 Cardiomyopathy, unspecified; J44.0 Chronic obstructive pulmonary disease with (acute) lower respiratory infection; G81.90 Hemiplegia, unspecified affecting unspecified side; J98.11 Atelectasis; K81.0 Acute cholecystitis; I50.22 Chronic systolic (congestive) heart failure; I48.91 Unspecified atrial fibrillation; E11.22 Type 2 diabetes mellitus with diabetic chronic kidney disease; E11.649 Type 2 diabetes mellitus with hypoglycemia without coma; Z21 Asymptomatic human immunodeficiency virus [HIV] infection status; D64.9 Anemia, unspecified; D72.819 Decreased white blood cell count, unspecified; I25.10 Atherosclerotic heart disease of native coronary artery without angina pectoris; I27.2 Other secondary pulmonary hypertension; I73.9 Peripheral vascular disease, unspecified; Z79.82 Long term (current) use of aspirin; Z79.899 Other long term (current) drug therapy; Z82.49 Family history of ischemic heart disease and other diseases of the circulatory system; Z83.3 Family history of diabetes mellitus; Z86.73 Personal history of transient ischemic attack (TIA), and cerebral infarction without residual deficits; Z87.891 Personal history of nicotine dependence; Z91.14 Patient's other noncompliance with medication regimen; Z91.19 Patient's noncompliance with other medical treatment and regimen; Z95.5 Presence of coronary angioplasty implant and graft; Z95.810 Presence of automatic (implantable) cardiac defibrillator; Z98.51 Tubal ligation status; Z99.2 Dependence on renal dialysis; Z88.2 Allergy status to sulfonamides; Z88.8 Allergy status to other drugs, medicaments and biological substances; Z87.19 Personal history of other diseases of the digestive system; R26.81 Unsteadiness on feet